=== PATIENT | male | born 1945 | race Caucasian/White ===

== ENCOUNTER 2019-05-03 09:32 | Outpatient (CLI) | payer MEDICARE, BC, SELFPAY | END 2019-05-03 09:33 | disposition home or self-care (01) | LOC: ONCMED 09:40 | PROVIDERS: Family Provider Nurse Practitioner Family; PCP Nurse Practitioner Family; Visit Provider Internal Medicine Hematology & Oncology | DX: Z45.2 Encounter for adjustment and management of vascular access device (principal) | CPT/HCPCS: 96523 ==

== ENCOUNTER 2019-06-03 11:07 | Outpatient (CLI) | payer MEDICARE, BC, SELFPAY | END 2019-06-03 11:08 | disposition home or self-care (01) | LOC: ONCMED 11:07 | PROVIDERS: Family Provider Nurse Practitioner Family; PCP Nurse Practitioner Family; Visit Provider Internal Medicine Hematology & Oncology | DX: Z45.2 Encounter for adjustment and management of vascular access device (principal) | CPT/HCPCS: 96523 ==

== ENCOUNTER 2019-07-02 10:49 | Outpatient (CLI) | payer MEDICARE, BC, SELFPAY | END 2019-07-02 10:50 | disposition home or self-care (01) | LOC: ONCMED 10:49 | PROVIDERS: Family Provider Nurse Practitioner Family; PCP Nurse Practitioner Family; Visit Provider Internal Medicine Hematology & Oncology | DX: Z45.2 Encounter for adjustment and management of vascular access device (principal) | CPT/HCPCS: 96523 ==

== ENCOUNTER 2019-08-02 09:20 | Outpatient (CLI) | payer MEDICARE, BC, SELFPAY | END 2019-08-02 09:21 | disposition home or self-care (01) | LOC: ONCMED 09:21 | PROVIDERS: Family Provider Nurse Practitioner Family; PCP Nurse Practitioner Family; Visit Provider Internal Medicine Hematology & Oncology | DX: Z45.2 Encounter for adjustment and management of vascular access device (principal) | CPT/HCPCS: 96523 ==

== ENCOUNTER 2019-08-30 09:18 | Outpatient (CLI) | payer MEDICARE, BC, SELFPAY ==
[2019-08-30 10:24] LABS: Basophils % 0.7 %; Eosinophils # 0.1 10^3/uL (0.0-0.8); Eosinophils % 1.7 %; Hematocrit 40.1 % (42.0-52.0); Hemoglobin 13.3 g/dL (11.7-16.6); Lymphocytes # 0.8 10^3/uL (0.8-4.8); Lymphocytes % 16.7 %; Mean Corpuscular HGB Conc 33.2 g/dL (30.0-36.0); Mean Corpuscular Hemoglobin 29.1 pg (28.0-34.0); Mean Corpuscular Volume 87.7 fL (80-94); Monocytes # 0.5 10^3/uL (0.2-0.9); Monocytes % 11.1 %; Neutrophils # 3.2 10^3/uL (1.8-7.7); Neutrophils % 69.6 %; Nucleated Red Blood Cells % 0 %; Platelet Count 190 10^3/cmm (130-400); Red Blood Count 4.57 10^6/uL (4.1-5.3); White Blood Count 4.6 10^3/uL (4.0-10.0)
[2019-08-30 10:51] LABS: Carcinoembryonic Antigen 3.3 ng/mL (0.0-4.7)
[2019-08-30 11:02] LABS: Alanine Aminotransferase 30 U/L (0-41); Albumin Level 4.4 g/dL (3.5-5.2); Alkaline Phosphatase 109 IU/L (40-130); Anion Gap 16.6 (5-19); Aspartate Amino Transferase 26 U/L (0-40); Blood Urea Nitrogen 15 mg/dL (8-23); Calcium 9.9 mg/dL (8.5-10.5); Carbon Dioxide 27 mmol/L (22-29); Chloride 101 mmol/L (98-107); Globulin 2.9 g/dL (1.3-4.6); Glucose 106 mg/dL (65-115); Osmolality Calculated 289 mOsm/kg (285-295); Potassium 3.6 mmol/L (3.5-5.1); Sodium 141 mmol/L (136-145); Total Bilirubin 0.5 mg/dL (0.15-1.2); Total Protein 7.3 g/dL (6.6-8.7)
== END 2019-08-30 09:19 | disposition home or self-care (01) ==
LOC: ONCMED 09:19
PROVIDERS: Family Provider Nurse Practitioner Family; PCP Nurse Practitioner Family; Visit Provider Internal Medicine Hematology & Oncology
DX: C20 Malignant neoplasm of rectum (principal); C77.8 Secondary and unspecified malignant neoplasm of lymph nodes of multiple regions; D64.9 Anemia, unspecified
CPT/HCPCS: 36591; 80053; 82378; 85025

== ENCOUNTER 2019-10-03 13:07 | Outpatient (CLI) | payer MEDICARE, BC, SELFPAY ==
[2019-10-03] MEDS: alteplase 1 mg/mL SDV 2 mL 2 MG INTRACATH (13:41)
== END 2019-10-03 13:08 | disposition home or self-care (01) ==
LOC: ONCMED 13:10
PROVIDERS: Family Provider Nurse Practitioner Family; PCP Nurse Practitioner Family; Visit Provider Internal Medicine Hematology & Oncology
DX: C20 Malignant neoplasm of rectum (principal); C77.8 Secondary and unspecified malignant neoplasm of lymph nodes of multiple regions; D64.9 Anemia, unspecified
CPT/HCPCS: 36593; 96374; J2997

== ENCOUNTER 2019-11-06 13:19 | Outpatient (CLI) | payer MEDICARE, BC, SELFPAY | END 2019-11-06 13:20 | disposition home or self-care (01) | LOC: ONCMED 13:23 | PROVIDERS: PCP Nurse Practitioner Family; Visit Provider Internal Medicine Hematology & Oncology | DX: Z45.2 Encounter for adjustment and management of vascular access device (principal); C20 Malignant neoplasm of rectum; C77.8 Secondary and unspecified malignant neoplasm of lymph nodes of multiple regions; D64.9 Anemia, unspecified | CPT/HCPCS: 96523 ==

== ENCOUNTER → 2019-11-19 16:34 | Outpatient (BNVA) | payer MEDICARE, BC, SELFPAY | PROVIDERS: PCP Nurse Practitioner Family; Visit Provider Urology | DX: R97.20 Elevated prostate specific antigen [PSA] (principal); N39.9 Disorder of urinary system, unspecified; R33.9 Retention of urine, unspecified; N13.8 Other obstructive and reflux uropathy; N40.1 Benign prostatic hyperplasia with lower urinary tract symptoms | CPT/HCPCS: 81001; 84153 ==

== ENCOUNTER 2019-12-03 13:00 | Outpatient (CLI) | payer MEDICARE, BC, SELFPAY | END 2019-12-03 13:01 | disposition home or self-care (01) | LOC: ONCMED 13:05 | PROVIDERS: PCP Nurse Practitioner Family; Visit Provider Internal Medicine Hematology & Oncology | DX: Z45.2 Encounter for adjustment and management of vascular access device (principal) | CPT/HCPCS: 96523 ==

== ENCOUNTER → 2019-12-06 09:29 | Outpatient (BNVA) | payer MEDICARE, BC, SELFPAY | PROVIDERS: PCP Nurse Practitioner Family; Visit Provider Urology | DX: R97.20 Elevated prostate specific antigen [PSA] (principal); R33.9 Retention of urine, unspecified | CPT/HCPCS: 81001 ==

== ENCOUNTER 2019-12-20 10:27 | Day surgery (SDC) | payer MEDICARE, BC, SELFPAY ==
[2019-12-19 15:13] VITALS: BMI 29.1
[2019-12-20] VITALS (7 sets, daily range): BP systolic 111–159; BP diastolic 63–78; PULSE 65–85; RESP 15–20; TEMP 36.2–37.1; O2SAT 94–98
[2019-12-20] MEDS: sodium chloride 0.9% 1,000 ML 30 ML IV (11:04)
--- NOTE | 2019-12-20 12:06 | ANES.PREANE2 ---
Pre-Anesthetic Assessment Pre-Anesthetic Assessment: Height/Weight: Height 1.65 m Weight 79.379 kg Temp Pulse Resp BP Pulse Ox 97.2 F L 65 16 159/78 97 12/20/19 10:48 12/20/19 10:48 12/20/19 10:48 12/20/19 10:48 12/20/19 10:48 Preop Diagnosis: Elevated PSA, atypical rectal anatomy Proposed Procedure: Operation Date: 12/20/19 12:00 Proposed Procedures p Transrectal Ultrasound Prostate W/Biospy [id number] R97.20(Not Applicable) - Pasquale Estrada MD Was Beta Prabhakar taken within 24 hours: Yes Last intake: Intake Last Liquid Date 12/19/19 Last Liquid Time 22:00 Last Solid Date 12/19/19 Last Solid Time 18:00 Social: Social History: No alcohol and No tobacco Exam: Pre-Anes Outpt Exam: alert, oriented x 3, clear to auscultation bilaterally and regular rate & rhythm Airway: Submandibular: WNL Cervical ROM: WNL MP: 2 Dentition: Full History/ROS: No significant history except as noted and No significant complaints Pulmonary: Pulmonary: None reported CV/HEM: CV/HEM: HTN : : None reported Hepatic: Hepatic: None reported GI: GI: None reported Metabolic: Metabolic: None reported Musc/skel: Musc/skel: OA/DJD Neuropsych: Neuropsych: Anxiety Anesthetic Plan: ASA status: 2 Anesthesia: Anesthesia Evaluation and General Risk of > 500 ml blood loss (7ml/kg in children): No Meds/Allergies Current Medications: Current Medications Generic Name Dose Route Start Last Admin Trade Name Freq PRN Reason Stop Dose Admin Sodium Chloride 1,000 mls @ 30 ml s/hr 12/20/19 10:45 12/20/19 11:04 Sodium Chloride 0.9% IV 12/21/19 10:44 30 mls/hr .Q24H FARHAT Administration PFSH Anesthesia PFSH: Medical History Anxiety Bilateral leg edema Elevated PSA Enlarged prostate History of colon cancer HTN (hypertension), benign Hyperlipidemia Incomplete bladder emptying Lower urinary tract symptoms Surgical History S/P closure of ileostomy S/P colon resection S/P ileostomy Family History Mother , 92 CAD (coronary artery disease) Father , 79 Diabetes Cancer lung Social History Smoking and tobacco status: never smoked Alcohol intake: never Marital status: Current occupational status: retired Data Anesthesia Cardiac Studies: No Data to Display
[2019-12-20] MEDS: levofloxacin-dextrose 5 % 500 MG/100 ML PREMIX 100 MG IV (13:18)
--- NOTE | 2019-12-20 13:50 | P.OP_ITS ---
Operative Report Date of procedure: December 20, 2019 Pre-op Diagnosis: Elevated PSA, atypical rectal anatomy
--- NOTE | 2019-12-20 13:50 | P.OP_ITS ---
Operative Report Date of procedure: December 20, 2019 Pre-op Diagnosis: Elevated PSA, atypical rectal anatomy Post-op diagnosis: same Procedure Done: Transrectal ultrasound and biopsy of the prostate Specimens removed/disposition: 13 prostatic cores 1 sampling left seminal vesicle Pathology: other (See above) Surgeon: Sean Anesthesia: General Urine output: Not measured Complications: None Findings: 1. Much easier to maneuver the probe into the rectum with adequate visualization under anesthesia. 2. Hypoechoic tissue characterization on the right apex and extending onto the left seminal vesicle from the left base Condition: stable Disposition: PACU Brief History: Mr. Brunson is a very pleasant 74-year-old white male recently discovered to have an elevated PSA of approximately 50 with confirmation repeat test. Prostate did not feel grossly abnormal on rectal exam but was hard to tell because of altered anatomy from previous colorectal surgery. A biopsy was recommended and after a significant contemplation he agreed to proceed. The biopsy was attempted last week in the office but due to the altered rectal anatomy it was too uncomfortable to complete the procedure. The diagnostic ultrasound was performed that showed hypoechoic changes in the right apex and left base with the latter also involving the seminal vesicles. He was scheduled for examination under anesthesia so that he could tolerate the placement of the probe required for the biopsy. Procedure: After routine preoperative evaluation examination and obtaining of informed consent he was taken to the operating suite on 12/20/2019 where general anesthesia was administered without difficulty after appropriate timeout was performed, SCDs confirmed to be functioning, preoperative antibiotics administered, beta-river protocol confirmed. He was positioned in the left lateral decubitus position with careful attention to avoiding pressure points. Digital rectal exam was performed with findings as described above. The well- lubricated ultrasound probe was inserted into the anus and easily advanced under anesthesia into the rectum allowing adequate placement of the probe for biopsy. The previously identified ultrasonic findings were confirmed as described above. Routine sampling with grid fashion of the 12 distinct areas and the left seminal vesicle. Samples appear to be adequate and the needle appeared to pass well into the prostatic tissue for sampling. Bleeding was minimal. Light pressure was held in the perineum for approximately 3 minutes following the procedure rectal exam revealed no pooling of blood. He was awakened in the operating room and returned to the recovery room in stable condition. Tolerated the procedure well without complications. PLANS: 1. Continue Levaquin at home until course is completed 2. We will communicate over the phone next week when the pathology report is available 3. Follow-up to be arranged based on that pathology report
--- NOTE | 2019-12-20 13:50 | W.PM.OPSUD ---
Surgery/Procedure H&P Update DATE OF PROCEDURE: December 20, 2019 DATE H&P PERFORMED: 12/13/19 H&P UPDATE INFORMATION: I have reviewed H&P completed within last 30 days, I have examined patient prior to procedure, No changes to prior documentation and H&P is in [facility] [place] on date indicated PREOP DIAGNOSIS: Elevated PSA, atypical rectal anatomy PLANNED PROCEDURE: Operation Date: 12/20/19 12:00 Proposed Procedures p Transrectal Ultrasound Prostate W/Biospy [id number] R97.20(Not Applicable) - Pasquale Estrada MD
--- NOTE | 2019-12-20 14:18 | PM.PACU ---
PACU note PACU note: VSS, good pain control. Post-Anesthesia Exam: awake Disposition: discharged
== END 2019-12-20 15:10 | disposition home or self-care (01) ==
PROVIDERS: PCP Nurse Practitioner Family; Visit Provider Urology
PROC: 0VB03ZX Excision of Prostate, Percutaneous Approach, Diagnostic (ICD-10-PCS; CPT 76942; principal; 2019-12-20 12:00)
DX: C61 Malignant neoplasm of prostate (principal); R97.20 Elevated prostate specific antigen [PSA]; I10 Essential (primary) hypertension; E78.5 Hyperlipidemia, unspecified; Z85.038 Personal history of other malignant neoplasm of large intestine
CPT/HCPCS: 55700; 12345; 88302; 88305; J1580; J1956; J2405; J2704; J3010; J3490; J7030; T1015-U1

== ENCOUNTER 2019-12-20 17:58 | Emergency (ER) | payer MEDICARE, BC, SELFPAY ==
[2019-12-20 18:03] VITALS: BP 143/72; PULSE 77; RESP 18; TEMP 36.3; O2SAT 94; BMI 28.2
--- NOTE | 2019-12-20 18:29 | ED_ITS ---
HPI - Male Genitourinary General: Chief complaint: Urogenital-Male Stated complaint: unable to urinate Time Seen by Provider: 12/20/19 18:18 History of Present Illness: HPI Narrative: 74-year-old male who had a prostate biopsy earlier today. He comes to the ER complaining of urinary retention, as he has not been able to urinate since his biopsy. He notes that he just was able to get a few drops out with minimal relief. He complains of belly and back tenderness with a sense of urgency. His urologist called ahead, asking for ER staff to place a Abdullahi and irrigate if needed if there were clots present. He has set the patient up to follow him up early next week. MD Complaint: other Onset (ago): hour(s) Duration: constant Location: abdomen Radiation: right flank and left flank Severity: moderate Quality: aching and stabbing Relieving factors: none Exacerbating factors: none Context: recent surgery Associated symptoms: Reports hematuria and urinary retention; Deny discharge, dysuria, fevers/chills, nausea, swelling or vomiting Review of Systems 2 Const: Denies: fever(s) or chills Eyes: Denies: blurry vision ENMT: Denies: swelling of lips/tongue, bleeding gums or epistaxis Card: Denies: chest pain or palpitations Resp: Denies: dyspnea, productive cough, non-productive cough or wheezing GI: Denies: nausea or vomiting : Reports: difficulty urinating, urinary urgency and hematuria; Denies: dysuria Musc: Reports: back pain; Denies: neck pain Skin/Breast: Denies: rash or erythema Neuro: Denies: headache(s), dizziness or vertigo PFS ED PFSH: Medical History (Updated 12/20/19 @ 19:17 by Kalpesh Bush DO) Anxiety Bilateral leg edema Elevated PSA Enlarged prostate History of colon cancer HTN (hypertension), benign Hyperlipidemia Incomplete bladder emptying Lower urinary tract symptoms Surgical History S/P closure of ileostomy S/P colon resection S/P ileostomy Family History Mother , 92 CAD (coronary artery disease) Father , 79 Diabetes Cancer lung Social History (Reviewed 12/19/19 @ 15:00 by Racheal Ramirez Smoking and tobacco status: never smoked Alcohol intake: never Marital status: Current occupational status: retired Physical Exam Const: COMMON NORMALS: patient oriented x3 GENERAL APPEARANCE: other (uncomfortable) Chest: COMMONS NORMALS: normal inspection of the chest Resp: COMMON NORMALS: normal respiratory effort, No use of accessory muscles and clear to auscultation bilaterally AUSCULTATION: clear to auscultation bilaterally Cardio: COMMON NORMALS: regular rate, regular rhythm and No murmurs present (Cardio) RATE: regular rate RHYTHM: regular rhythm GI: COMMON NORMALS: Soft to palpation INSPECTION: Yes normal to inspection PALPATION: Yes Soft to palpation and Yes Tenderness to palpation present (GI) Neuro: COMMON NORMALS: patient oriented x3 Course Vital Signs: Vital signs: Vital Signs Temperature 97.3 F L 12/20/19 18:03 Pulse Rate 66 12/20/19 20:51 Respiratory Rate 18 12/20/19 20:51 Blood Pressure 108/60 12/20/19 20:51 Pulse Oximetry 94 12/20/19 20:51 MDM - Male MDM Narrative: Medical decision making narrative: Provided no increased clots, and good drainage of urine, will be discharged. He will go home with a leg bag to follow-up with urology next week. Multiple attempts had to be made for catheter placement. Once catheter was placed, there is nearly immediate improvement in pain, there was good urine output, nearly 600 cc immediately. With improvement, he will be discharged for outpatient follow-up. Lab Data: Labs: Lab Results 12/20/19 Range/Units 20:10 Urine Color Yellow (Yellow) Urine Appearance Clear (CLEAR) Urine pH 5 (5-7) Ur Specific Gravit y 1.015 (1.005-1.030) Urine Protein Neg (Negative) Urine Glucose (UA) Norm (Normal) Urine Ketones Negative (Negative) Urine Blood 3+ H (Negative) Urine Nitrate Negative (Negative) Urine Bilirubin Neg (NEGATIVE) Urine Urobilinogen Norm (Negative) mg/dL Ur Leukocyte Amaya ase Negative (Negative) Urine RBC 5-10 H (0-2) /hpf Urine WBC 0-4 H (0-5) /hpf Ur Squamous Epith Cells 0-4 H (0-5) Amorphous Sediment Not Reportable Urine Bacteria Trace (NONE) Urine Mucus Trace Discharge Plan Discharge Patient Disposition: Home Clinical Impression: Acute retention of urine Condition: Stable Prescriptions: New levofloxacin 500 mg tablet 500 mg PO DAILY 7 Days Qty: 7 RF: 0 No Action amlodipine 10 mg tablet 10 mg PO DAILY RF: 0 hydrochlorothiazide 50 mg tablet 50 mg PO DAILY RF: 0 metoprolol succinate 50 mg tablet extended release 24 hr 50 mg PO DAILY RF: 0 ramipril 10 mg capsule 10 mg PO BID RF: 0 atorvastatin 40 mg tablet 40 mg PO BEDTIME RF: 0 diazepam 5 mg tablet 5 mg PO BEDTIME PRN (Reason: Sleep) RF: 0 levofloxacin [Levaquin] 500 mg tablet 500 mg PO DAILY Qty: 4 RF: 0 tamsulosin 0.4 mg capsule 0.4 mg PO DAILY Qty: 90 RF: 3 Discharge Orders: Discharge Order (Routine); Ordered 12/20/19 Ordered By: Kalpesh Bush Referrals: Pasquale Estrada MD [Physician] - 4-7 days Lia Garcia FNP [Primary Care Provider] - Discharge Diet: Usual diet Patient Instructions: Abdullahi Catheter Placement and Care (ED) Activity Restrictions/Additional Instructions: Follow-up with urology as directed. Return for increasing pain, decrease in urine output in your bag, fever, other concerning symptoms. Discharge Date/Time: 12/20/19 20:53 Coding Level of Care Code ED Shuttle Operator for Kirsteng Fwd Exam Detailed
[2019-12-20 18:53] VITALS: O2SAT 96
--- NOTE | 2019-12-20 19:05 | PC.NURSE ---
patient report received from YAS Santillan and care transferred to YAS García
[2019-12-20 19:12] VITALS: BP 134/72; PULSE 71; RESP 18; O2SAT 95
--- NOTE | 2019-12-20 19:14 | PC.NURSE ---
patient updated on plan of care
[2019-12-20 20:17] VITALS: BP 143/50; PULSE 68; RESP 15; O2SAT 96
--- NOTE | 2019-12-20 20:26 | PC.NURSE ---
patient given water per hcp approval
[2019-12-20 20:28] LABS: Add Urine Microscopic? YES; Bilirubin Urine Neg (NEGATIVE); Blood Urine 3+ (Negative); Glucose Urine UA Norm (Normal); Ketones Urine Negative (Negative); Leukocyte Esterase Urine Negative (Negative); Nitrate Urine Negative (Negative); Protein Urine Neg (Negative); Specific Gravity, Urine 1.015 (1.005-1.030); Urine Appearance Clear (CLEAR); Urine Color Yellow (Yellow); Urobilinogen Urine Norm (Negative); pH Urine 5 (5-7)
[2019-12-20 20:42] LABS: Add Urine Culture? No; Bacteria Urine TRACE; Mucus Urine TRACE; Squamous Epithelial Cell Urine 0-4 (0-5); WBC Urine 0-4 /hpf (0-5)
[2019-12-20 20:51] VITALS: BP 108/60; PULSE 66; RESP 18; O2SAT 94
== END 2019-12-20 20:53 | disposition home or self-care (01) ==
PROVIDERS: Emergency Provider Emergency Medicine; PCP Nurse Practitioner Family
DX: R33.9 Retention of urine, unspecified (principal); Z85.038 Personal history of other malignant neoplasm of large intestine; I10 Essential (primary) hypertension; E78.5 Hyperlipidemia, unspecified
CPT/HCPCS: 12345; 51702; 81001; 99283

== ENCOUNTER → 2019-12-27 08:46 | Outpatient (BNVA) | payer MEDICARE, BC, SELFPAY | PROVIDERS: PCP Nurse Practitioner Family; Visit Provider Urology | DX: R33.8 Other retention of urine (principal) | CPT/HCPCS: 81001 ==

== ENCOUNTER 2020-01-01 07:48 | Outpatient (CLI) | payer MEDICARE, BC, SELFPAY ==
--- NOTE | 2020-01-01 07:55 | CT_ITS ---
WS: [id number] CT ABDOMEN AND PELVIS WITH CONTRAST HISTORY: prostate cancer TECHNIQUE: Imaging performed of the abdomen and pelvis with IV contrast. Single phase imaging of the abdomen. Coronal and sagittal reformats are submitted. All CT scans at [facility] use at least one of these dose optimization techniques: automated exposure control; mA and/or kV adjustment per patient size (includes targeted exams where dose is matched to clinical indication); or iterativ e reconstruction. IV CONTRAST: Omnipaque 300; 95 mL IV. Oral contrast: Yes. DLP: 805.14 mGy.cm COMPARISON: 12/03/2018 and 08/10/2017 Lower thorax: Chronic emphysema. Heart is normal size. No hiatal hernia. Liver/biliary system: Normal size liver with granulomata. No mass or bile duct dilatation. Gallbladder: Normal. No gallstones or wall thickening. No pericholecystic fluid. Pancreas: Normal. Spleen: Normal size with granulomata. Adrenal glands: Normal. Right kidney: Mild perinephric stranding. No solid mass or obstruction. Left kidney: Mild perinephric stranding. No solid mass or obstruction. Aorta: Mild atherosclerosis with no aneurysm. Lymphadenopathy: None. Free fluid: None. GI tract: Moderate fecal retention with no obstruction. There is a row of surgical sutures at the rec jakub which is similar in appearance to the prior study. No mass. There is presacral and perirectal sof t tissue thickening and stranding which has actually progressed since 12/03/2018. Soft tissue inflammatory changes in the fat may be due to recent treatment for procedure involving th e prostate gland. Abdominal wall: Persistent defect in the RIGHT lateral abdominal wall musculature measures 2.4 cm. Th is may be a prior surgical site related to a colostomy. There is a small amount of fat herniating thr ough the defect. Similar in appearance to 12/03/2018 with no progression. Pelvis: Significant change in appearance of the urinary bladder since the prior study. Urinary bladde r is well distended. There is a small diverticulum from the dome of the urinary bladder. There is asy mmetric wall thickening greatest over the RIGHT lateral bladder measuring up to 12 mm in diameter. In flammatory changes in the fat surrounding the prostate gland and bladder are new. Prostate is very mi ldly enlarged and edematous measuring 4.5 x 3.5 cm with central calcification. No lymph nodes. Bones: Sclerotic 15 mm focus in the superior T11 vertebral body measures 15 mm. This was present on t he prior examination measuring only 6 mm. There are additional tiny sclerotic foci in the femoral hea ds which are stable. CT/CT abdomen pelvis w con* [id number] IMPRESSION: 1. New asymmetric thickening and stranding involving the urinary bladder wall measuring up to 11 mm on the RIGHT. Additional new stranding around the prostat e gland and presacral soft tissue thickening. These changes have progressed sin ce 12/03/2018 and may be related to the prostate cancer diagnosis and treatment. Cystitis should also be considered. 2. Postsurgical clips at the rectum are stable. 3. No evidence for metastatic disease to the liver and no adenopathy. 4. Increasing sclerotic focus in T11. Focus has increased from 6 mm to 15 mm. Suspicious for osteoblastic metastatic site related to prostate cancer. This os teoblastic focus is also positive on recent bone scan.
--- NOTE | 2020-01-01 08:00 | NM_ITS ---
WS: [id number] NUCLEAR MEDICINE WHOLE BODY BONE SCAN HISTORY: Prostate Cancer COMPARISON: None available. TECHNIQUE: The patient was injected with 27.5 mCi of Technetium 99m HDP and serial whole-body scintig wendy have been performed with anterior and posterior images. Moderate area of increased uptake involving the RIGHT lateral T11 vertebral body. On the recent CT th ere is an increasing sclerotic focus in the T11 vertebral body. There is additional moderate uptake a t the LEFT lumbosacral junction. At this level there is facet joint arthritis but no focal osteoblast ic lesion. There is an additional area of moderate uptake involving the RIGHT C7-T1 facet region. Mil d degenerative changes at the AC joints and glenohumeral joints and at the knees and ankles. Addition al arthritis at the RIGHT wrist. Normal soft tissue uptake in both kidneys demonstrate normal activity and uptake. NM/NM bone scan whole body* [id number] IMPRESSION: 1. Moderate increased uptake in the RIGHT lateral T11 vertebral body. This cor responds to the increasing sclerotic focus as visualized by CT. Suspicious for metastatic site. 2. Indeterminate but less suspicious uptake in the LEFT L5-S1 and C7-T1 facet regions.
[2020-01-01 08:42] LABS: Blood Urea Nitrogen 14 mg/dL (8-23)
[2020-01-01] MEDS: iohexol 300 mg/mL 100 mL Btl IV (08:51)
== END 2020-01-01 07:49 | disposition home or self-care (01) ==
LOC: RAD 07:48
PROVIDERS: PCP Nurse Practitioner Family; Visit Provider Urology
DX: C61 Malignant neoplasm of prostate (principal)
CPT/HCPCS: 36415; 74177; 78306; 82565; 84520; A9561

== ENCOUNTER 2020-01-28 13:39 | Outpatient (CLI) | payer MEDICARE, BC, SELFPAY ==
--- NOTE | 2020-01-28 15:13 | ONC FU_ITS ---
Dr. Curry follow up note Patient: John Brunson Unit #: [id number]: 1945 Dicatated By: Axel Curry M.D.Date of Visit:Jan 28, 2020 Onc Med Follow-up/Prog Note History of Present Illness: Mr Brunson is a 74 year-old man with adenocarcinoma of the rectum, stage ISIS (Tx, Nx, M1a), MSI stable. He had presented with bleeding per rectum for many months. Colonoscopy on 01/10/2017 showed at malignant appearing mass at 6 cm from the anal verge, It was involving three fourth of the circumference. The rest of colon exam showed scattered diverticula in sigmoid colon, but it otherwise appeared normal. Multiple biopsies were obtained with pathology showing moderately differentiated adenocarcinoma, with focal areas which were poorly differentiated. The tumor was found to have intact mismatch repair proteins. CT abdomen/pelvis on 01/10/2017 showed posterior rectal wall thickening measuring 3.8 cm x 2.1 cm, consistent with primary tumor. Additional soft tissue lobulation from the posterior lateral rectum appeared consistent with metastatic deposits or tumor extension from the rectum. An aortocaval lymph node measuring 7 mm in short axis diameter had increased in size since 2008. Subcentimeter periaortic lymph nodes had also increased in size. There was left common iliac chain adenopathy, the largest measures 1.6 cm in diameter. Deeper within the pelvis near bifurcation of left iliac artery there was an additional lymph node measuring 1.2 cm. Numerous small lymph nodes were noted within the perirectal fat and there was some very mild perirectal fat stranding. He was referred to Dr. Lino Bedoya in [place]. He had further evaluation with MRI of the pelvis on 01/18/2017. It showed irregular near-complete circumferential wall thickening roughly centered within the mid rectum consistent with his primary rectal tumor. There was extramural tumor extension abutting the right mesorectal fascia along the right lateral posterior rectal wall. There was bilateral mesorectal lymphadenopathy and left common iliac chain lymphadenopathy. Staging PET/CT on 02/11/2017 showed FDG avid rectal tumor, SUV 15.2, with multiple FDG avid subcentimeter lymph nodes in the surrounding ischial rectal fat. There was also suspected metastatic adenopathy along the pelvic sidewalls and in the retroperitoneum. He initially underwent neoadjuvant chemotherapy with modified FOLFOX, cycle 1 beginning 02/21/2017. He tolerated the first cycle of modified FOLFOX with acceptable toxicity, and he was able to proceed with cycle 2 on 03/06/2017. He had severe cramping in his calves following the second cycle, and he had back spasms which lasted for 3-4 days. He had cold sensitivity which lasted in the range of 11-12 days. With cycle 3, on 03/20/2017, he was given a dose reduction in both the 5-FU infusion and the oxaliplatin. He continued treatment and on 05/02/2017 he began his 6th cycle of chemotherapy. On 05/30/2017 he began radiation concurrently with Xeloda for chemosensitization. He completed radiation on 07/10/2017 to a total dose of 5072 cGy. On 09/12/2017 he underwent robotic extended low anterior resection with placement of loop ileostomy. Pathology showed grade 2 adenocarcinoma with invasion through the muscularis propria into perirectal tissue. It measured 2.5 x 2 x 1 cm. The tumor regression score was 2. There was involvement in 4 of 12 regional lymph nodes. Final staging was ypT3, ypN2a. His other medical illnesses include hypertension and hyperlipidemia. He is a nonsmoker. Mr Brunson continued postoperative chemotherapy on 10/17/2017 with postoperative modified FOLFOX. He has tolerated it well overall. And completed his adjuvant chemotherapy with modified FOLFOX ???6 on 12/26/2017. Status post colostomy closure Done in March 2018 f/u CT scan of abdomen pelvis done on 12/03/2018 showed postsurgical changes at the rectum with posttreatment perirectal soft tissue thickening. No evidence of recurrent mass, obstruction or adenopathy. No metastatic disease to the liver or adrenal glands chest x-ray done on 12/03/2018. Showed no acute pulmonary infiltrate. Chronic elevation right hemidiaphragm CEA was 4.2, As per patient he underwent colonoscopy evaluation May 2019, and Dr. mcconnell , informed him about no abnormality seen and follow-up colonoscopy would be considered in 3 years. 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 and CT scan of abdomen ordered by urology shows 2 areas of suspicious activity 1 in the spine at T11 and other 1 in the cervical area and CT scan of her abdomen pelvis also confirmed T11 involvement but no pelvic lymphadenopathy, patient was started on bicalutamide on January 22, 2020 Came for follow-up, denies any specific complaints, no fever chills, no nausea or vomiting, no diarrhea constipation, no hematuria, melena or hematochezia patient was recently diagnosed with prostate cancer as his PSA was more than 50 and also had abnormal SHILPI for that he underwent TRUS P/biopsy on December 20, 2019 which confirmed high-volume James 4+4 and 3+4 prostate cancer. Patient was started on bicalutamide last week and tolerating well. Patient said he has seen Dr. Mendoza recently and underwent colonoscopy and it was unremarkable and next one is due in 3 years now. Medications: AmLODIPine Besylate 1 Tablet (of 10 mg) Oral daily, Atorvastatin Calcium 1 Tablet (of 40 mg) Oral daily, Casodex 1 Tablet (of 50 mg) Oral daily, Daily Multiple Vitamins 2 Tablet Oral daily, DiazePAM 1 (5 mg) Tablet Oral at bedtime, HydroCHLOROthiazide 1 Tablet (of 50 mg) Oral daily, Imodium A-D 2 (2 mg) Capsule Oral four times a day PRN, LORazepam 0.5 - 1 (1 mg) Tablet Oral t.i.d. PRN, Metoprolol Succinate ER 1 Tablet (of 50 mg) Tablet SR 24 HR Oral daily, Ramipril 1 Tablet (of 10 mg) Capsule Oral b.i.d., Senokot S Tablet Oral daily PRN, Tamsulosin HCl 1 Capsule (of 0.4 mg) Oral daily Allergies: No Known Allergies. Review of Systems: Constitutional - Appetite is good and weight is stable. No fever, chills, hot flashes, or night sweats. Energy level is fair, ENMT - No sinus congestion/drainage. No mouth sores. No sore throat, some difficulty swallowing, Hematologic/Lymphatic - No abnormal bruising or bleeding, Respiratory - Occasional shortness of breath. No cough. No pleuritic pain or hemoptysis, Cardiovascular - No angina pain. No palpitations, Gastrointestinal - No nausea or vomiting. No heartburn or acid reflux. No constipation, Genitourinary (M) - No dysuria or hematuria. No urinary frequency. No urgency or incontinence, Musculoskeletal - No joint or bone pain, Neurologic - No headache or dizziness. No numbness/paresthesias or other focal neurologic symptoms, Psychiatric - No anxiety or depression. No insomnia. Vital Signs: Performed on Jan 28, 2020 13:53 Height - 65.00 in Weight - 167.0 lbs (LOW) BSA - 1.83 sq.m BMI - 27.79 Temperature - 98.0 F (LOW) Pulse - 71 /min Respiration - 18 /min BP - 133/58 mm(hg) O2 Sat - 97 % Pain - 0 Performance Status: 0 - Fully active, able to carry on all predisease activities without restrictions. (ECOG) Physical Examination: ENMT - No mouth sores, no thrush, no jaundice, Respiratory - Lungs are clear, Cardiovascular - Regular rate and rhythm of heart, Abdomen - Soft, bowel sounds present, Extremities - No visible edema. Lab/Imaging: Test performed on August 30, 2019 09:30 Sodium 141 mmol/L Potassium 3.6 mmol/L Chloride 101 mmol/L CO2 27 mmol/L Anion Gap 16.6 BUN 15 mg/dL Creatinine 0.9 mg/dL Cr Clearance (Est) 88.0600 mL/min Glucose 106 mg/dL Calcium 9.9 mg/dL Protein, Total 7.3 g/dL Albumin 4.4 g/dL Globulin 2.9 g/dL Bilirubin, Total 0.5 mg/dL ALT (SGPT) 30 U/L AST (SGOT) 26 U/L Alkaline Phosphatase 109 IU/L WBC 4.6 10 3/uL RBC 4.57 10 6/uL HGB 13.3 g/dL HCT 40.1 % MCV 87.7 fL MCH 29.1 pg MCHC 33.2 g/dL RDW 14.0 % Platelet Count 190 10 3/cmm MPV 10.0 fL Neutrophils 3.2 10 3/uL Lymphocytes 0.8 10 3/uL Monocytes 0.5 10 3/uL Eosinophils 0.1 10 3/uL Basophils 0.0 10 3/uL Neutrophil % 69.6 % Lymphocyte % 16.7 % Monocyte % 11.1 % Eosinophil % 1.7 % Basophils % 0.7 % CEA 3.3 ng/mL Impression: Metastatic prostate cancer with T11 involvement per bone scan and CT scan of abdomen pelvis done on January 01, 2020. 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 Patient with adenocarcinoma of the rectum, stage ISIS, with metastatic involvement in nonregional lymph nodes. His tumor was found to be MSI stable. 2. He has been undergoing chemotherapy with modified FOLFOX, cycle 1 beginning on 02/21/2017. His other medical illnesses include: 3. Hypertension. 4. Hyperlipidemia. Neoadjuvant chemotherapy with FOLFOX ???6 from 02/21/2017 to 05/02/2017 and On 05/30/2017 he began radiation concurrently with Xeloda for chemosensitization. He completed chemoradiation on 07/10/2017 to a total dose of 5072 cGy. On 09/12/2017 he underwent robotic extended low anterior resection with placement of loop ileostomy. Pathology showed grade 2 adenocarcinoma with invasion through the muscularis propria into perirectal tissue. It measured 2.5 x 2 x 1 cm. The tumor regression score was 2. There was involvement in 4 of 12 regional lymph nodes. Final staging was ypT3, ypN2a. On 10/17/2017 began his first cycle of postoperative adjuvant chemotherapy with modified FOLFOX. He had cold sensitivity lasting 3-4 days. He has otherwise tolerated it well.Completed 6 cycles of adjuvant FOLFOX (total 12 doses, 6 as neoadjuvant and another 6 doses as an adjuvant therapy) on 12/26/2017 Follow-up CT PET scan done on 02/17/2018 showed no evidence of recurrent or residual malignancy. Status post colostomy closure Was done in March 2018 Plan: Discussed with patient regarding his newly diagnosed prostate cancer clinically it appears patient bone mets especially T11 vertebra involvement which was seen on bone scan as well as CT scan of abdomen pelvis moreover his PSA was more than 50 and prostate biopsy confirmed high-volume [place] score 4+4 and 3+4, and he was already started on bicalutamide by urology, tolerating well, at this point we will consider starting him on Zoladex 10.8 mg every 3 months and then follow-up with testosterone and PSA in a month after Zoladex injection and goal is to get his testosterone level less than 20 for optimal response and then will consider follow-up: CT PET scan after 2 injections of Zoladex if that shows no evidence of distant mets, and if PSA normalized then will consider referral to radiation oncology for consideration of brachii therapy to the prostate as patient has history of rectal cancer for which she was treated with radiation therapy in May 2017. And we will also consider treating him with Xgeva on monthly basis to prevent skeletal related complications. All the side effects possible benefits associated with Zoladex including but not limited to generalized weakness and fatigue, gynecomastia, decreased libido, erectile dysfunction, bone demineralization, were mentioned and also discussed about possible side effects associated with Xgeva including but not limited to mandible necrosis, hypocalcemia, allergic reaction, bone pain, further teaching will be done by chemotherapy nurse. And will obtain approval from his insurance. As far as rectal cancer is concerned, patient has been following colorectal surgeon in [place] as per patient recently underwent colonoscopy and he was told there is no evidence of recurrence of disease and next follow-up colonoscopy will be done in 3 years. Patient return to clinic 1 month after Zoladex injection with CBC CMP, PSA and testosterone in the meantime we will continue with monthly port maintenance Signed By: Axel Curry M.D. <<Signature on File>>
== END 2020-01-28 13:40 | disposition home or self-care (01) ==
LOC: ONCMED 13:40
PROVIDERS: PCP Nurse Practitioner Family; Visit Provider Internal Medicine Hematology & Oncology
DX: C20 Malignant neoplasm of rectum (principal); C77.8 Secondary and unspecified malignant neoplasm of lymph nodes of multiple regions; D64.9 Anemia, unspecified; I10 Essential (primary) hypertension; E78.5 Hyperlipidemia, unspecified; Z45.2 Encounter for adjustment and management of vascular access device
CPT/HCPCS: 96523; 99214

== ENCOUNTER 2020-02-04 06:38 | Outpatient (CLI) | payer MEDICARE, BC, SELFPAY ==
[2020-02-04] MEDS: denosumab 120 mg SDV SUBCUT (13:18)
[2020-02-04] MEDS: goserelin acetate 10.8 mg Implant IM (13:20)
[2020-02-04] MEDS: lidocaine 1% INJ 20 mL INJECTION (14:51)
== END 2020-02-04 06:39 | disposition home or self-care (01) ==
LOC: ONCMED 06:41
PROVIDERS: PCP Nurse Practitioner Family; Visit Provider Internal Medicine Hematology & Oncology
DX: Z51.11 Encounter for antineoplastic chemotherapy (principal); C77.8 Secondary and unspecified malignant neoplasm of lymph nodes of multiple regions; C20 Malignant neoplasm of rectum; D64.9 Anemia, unspecified; Z79.818 Long term (current) use of other agents affecting estrogen receptors and estrogen levels
CPT/HCPCS: 96372; 96402; J0897; J9202

== ENCOUNTER 2020-03-02 05:44 | Outpatient (CLI) | payer MEDICARE, BC, SELFPAY ==
[2020-03-02 09:57] LABS: Basophils % 0.7 %; Eosinophils # 0.1 10^3/uL (0.0-0.8); Eosinophils % 1.1 %; Hematocrit 40.1 % (42.0-52.0); Hemoglobin 13.5 g/dL (11.7-16.6); Lymphocytes # 0.6 10^3/uL (0.8-4.8); Mean Corpuscular HGB Conc 33.7 g/dL (30.0-36.0); Mean Corpuscular Volume 86.2 fL (80-94); Mean Platelet Volume 9.6 fL (7.4-10.4); Monocytes # 0.4 10^3/uL (0.2-0.9); Monocytes % 8.7 %; Neutrophils # 3.38 10^3/uL (1.8-7.7); Neutrophils % 75.3 %; Nucleated Red Blood Cells % 0 %; Platelet Count 180 10^3/cmm (130-400); Red Blood Count 4.65 10^6/uL (4.1-5.3); Red Cell Distribution Width 14.2 % (12.1-15.1); White Blood Count 4.5 10^3/uL (4.0-10.0)
[2020-03-02 10:28] LABS: Carcinoembryonic Antigen 2.1 ng/mL (0.0-4.7); Prostate Specific Antigen 0.947 ng/mL (0-4); Testosterone Total 2.5 ng/dL (193-740)
[2020-03-02 10:39] LABS: Alanine Aminotransferase 28 U/L (0-41); Albumin Level 4.6 g/dL (3.5-5.2); Alkaline Phosphatase 90 IU/L (40-130); Anion Gap 14.4 (5-19); Aspartate Amino Transferase 25 U/L (0-40); Blood Urea Nitrogen 12 mg/dL (8-23); Calcium 9.5 mg/dL (8.5-10.5); Carbon Dioxide 29 mmol/L (22-29); Chloride 97 mmol/L (98-107); Globulin 2.4 g/dL (1.3-4.6); Glucose 125 mg/dL (65-115); Osmolality Calculated 285 mOsm/kg (285-295); Potassium 3.4 mmol/L (3.5-5.1); Sodium 137 mmol/L (136-145); Total Bilirubin 0.7 mg/dL (0.15-1.2)
[2020-03-02] MEDS: denosumab 120 mg SDV SUBCUT (11:33)
--- NOTE | 2020-03-02 16:01 | ONC FU_ITS ---
Dr. Curry follow up note Patient: John Brunson Unit #: [id number]: [id number] Dicatated By: Axel Curry M.D.Date of Visit:Mar 02, 2020 Onc Med Follow-up/Prog Note History of Present Illness: Mr Brunson is a 74 year-old man with adenocarcinoma of the rectum, stage ISIS (Tx, Nx, M1a), MSI stable. He had presented with bleeding per rectum for many months. Colonoscopy on 01/10/2017 showed at malignant appearing mass at 6 cm from the anal verge, It was involving three fourth of the circumference. The rest of colon exam showed scattered diverticula in sigmoid colon, but it otherwise appeared normal. Multiple biopsies were obtained with pathology showing moderately differentiated adenocarcinoma, with focal areas which were poorly differentiated. The tumor was found to have intact mismatch repair proteins. CT abdomen/pelvis on 01/10/2017 showed posterior rectal wall thickening measuring 3.8 cm x 2.1 cm, consistent with primary tumor. Additional soft tissue lobulation from the posterior lateral rectum appeared consistent with metastatic deposits or tumor extension from the rectum. An aortocaval lymph node measuring 7 mm in short axis diameter had increased in size since 2008. Subcentimeter periaortic lymph nodes had also increased in size. There was left common iliac chain adenopathy, the largest measures 1.6 cm in diameter. Deeper within the pelvis near bifurcation of left iliac artery there was an additional lymph node measuring 1.2 cm. Numerous small lymph nodes were noted within the perirectal fat and there was some very mild perirectal fat stranding. He was referred to Dr. Lino Bedoya in [place]. He had further evaluation with MRI of the pelvis on 01/18/2017. It showed irregular near-complete circumferential wall thickening roughly centered within the mid rectum consistent with his primary rectal tumor. There was extramural tumor extension abutting the right mesorectal fascia along the right lateral posterior rectal wall. There was bilateral mesorectal lymphadenopathy and left common iliac chain lymphadenopathy. Staging PET/CT on 02/11/2017 showed FDG avid rectal tumor, SUV 15.2, with multiple FDG avid subcentimeter lymph nodes in the surrounding ischial rectal fat. There was also suspected metastatic adenopathy along the pelvic sidewalls and in the retroperitoneum. He initially underwent neoadjuvant chemotherapy with modified FOLFOX, cycle 1 beginning 02/21/2017. He tolerated the first cycle of modified FOLFOX with acceptable toxicity, and he was able to proceed with cycle 2 on 03/06/2017. He had severe cramping in his calves following the second cycle, and he had back spasms which lasted for 3-4 days. He had cold sensitivity which lasted in the range of 11-12 days. With cycle 3, on 03/20/2017, he was given a dose reduction in both the 5-FU infusion and the oxaliplatin. He continued treatment and on 05/02/2017 he began his 6th cycle of chemotherapy. On 05/30/2017 he began radiation concurrently with Xeloda for chemosensitization. He completed radiation on 07/10/2017 to a total dose of 5072 cGy. On 09/12/2017 he underwent robotic extended low anterior resection with placement of loop ileostomy. Pathology showed grade 2 adenocarcinoma with invasion through the muscularis propria into perirectal tissue. It measured 2.5 x 2 x 1 cm. The tumor regression score was 2. There was involvement in 4 of 12 regional lymph nodes. Final staging was ypT3, ypN2a. His other medical illnesses include hypertension and hyperlipidemia. He is a nonsmoker. Mr Brunson continued postoperative chemotherapy on 10/17/2017 with postoperative modified FOLFOX. He has tolerated it well overall. And completed his adjuvant chemotherapy with modified FOLFOX ???6 on 12/26/2017. Status post colostomy closure Done in March 2018 f/u CT scan of abdomen pelvis done on 12/03/2018 showed postsurgical changes at the rectum with posttreatment perirectal soft tissue thickening. No evidence of recurrent mass, obstruction or adenopathy. No metastatic disease to the liver or adrenal glands chest x-ray done on 12/03/2018. Showed no acute pulmonary infiltrate. Chronic elevation right hemidiaphragm CEA was 4.2, As per patient he underwent colonoscopy evaluation May 2019, and Dr. mcconnell , informed him about no abnormality seen and follow-up colonoscopy would be considered in 3 years. 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 Mendoza recently and underwent colonoscopy and it was unremarkable and next one is due in 3 years now. Came for follow-up, denies any specific complaints, no fever chills, no nausea or vomiting, no diarrhea constipation, occasionally hot flashes otherwise tolerated Zoladex and bicalutamide along with monthly Xgeva well. Medications: AmLODIPine Besylate 1 Tablet (of 10 mg) Oral daily, Atorvastatin Calcium 1 Tablet (of 40 mg) Oral daily, Casodex 1 Tablet (of 50 mg) Oral daily, Daily Multiple Vitamins 2 Tablet Oral daily, DiazePAM 1 (5 mg) Tablet Oral at bedtime, HydroCHLOROthiazide 1 Tablet (of 50 mg) Oral daily, Imodium A-D 2 (2 mg) Capsule Oral four times a day PRN, LORazepam 0.5 - 1 (1 mg) Tablet Oral t.i.d. PRN, Metoprolol Succinate ER 1 Tablet (of 50 mg) Tablet SR 24 HR Oral daily, Ramipril 1 Tablet (of 10 mg) Capsule Oral b.i.d., Senokot S Tablet Oral daily PRN, Tamsulosin HCl 1 Capsule (of 0.4 mg) Oral daily Allergies: No Known Allergies. Review of Systems: Review of Systems is not available for this patient. Vital Signs: Performed on Mar 02, 2020 11:05 Height - 65.00 in Weight - 170.2 lbs (HIGH) BSA - 1.85 sq.m BMI - 28.32 Temperature - 97.5 F (LOW) Pulse - 62 /min Respiration - 16 /min BP - 142/71 mm(hg) (HIGH) O2 Sat - 96 % Pain - 0 Performance Status: 0 - Fully active, able to carry on all predisease activities without restrictions. (ECOG) Physical Examination: ENMT - No mouth sores, no thrush, no jaundice, Respiratory - Lungs are clear to auscultation, Cardiovascular - Regular rate and rhythm of heart, Abdomen - Soft, bowel sounds present, Extremities - No visible edema or rash. Lab/Imaging: Test performed on Mar 02, 2020 09:44 Sodium 137 mmol/L Testosterone, Total 2.5 ng/dL Potassium 3.4 mmol/L Chloride 97 mmol/L CO2 29 mmol/L Anion Gap 14.4 BUN 12 mg/dL Creatinine 0.8 mg/dL Cr Clearance (Est) 91.14 mL/min Glucose 125 mg/dL Osmolality - Calculated 285 mOsm/kg Calcium 9.5 mg/dL Protein, Total 7.0 g/dL Albumin 4.6 g/dL Globulin 2.4 g/dL Bilirubin, Total 0.7 mg/dL ALT (SGPT) 28 U/L AST (SGOT) 25 U/L Alkaline Phosphatase 90 IU/L WBC 4.5 10 3/uL RBC 4.65 10 6/uL HGB 13.5 g/dL HCT 40.1 % MCV 86.2 fL MCH 29.0 pg MCHC 33.7 g/dL RDW 14.2 % Platelet Count 180 10 3/cmm MPV 9.6 fL Neutrophils 3.38 10 3/uL Lymphocytes 0.6 10 3/uL Monocytes 0.4 10 3/uL Eosinophils 0.1 10 3/uL Basophils 0.0 10 3/uL Neutrophil % 75.3 % Lymphocyte % 14.0 % Monocyte % 8.7 % Eosinophil % 1.1 % Basophils % 0.7 % NRBC % 0 % CEA 2.1 ng/mL PSA 0.947 ng/mL Impression: Metastatic prostate cancer with T11 involvement per bone scan and CT scan of abdomen pelvis done on January 01, 2020. 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 Patient with adenocarcinoma of the rectum, stage ISIS, with metastatic involvement in nonregional lymph nodes. , Started on Zoladex 10.8 mg every 3 months on February 04, 2020 along with monthly Xgeva And daily vitamin D/calcium supplements His tumor was found to be MSI stable. 2. He has been undergoing chemotherapy with modified FOLFOX, cycle 1 beginning on 02/21/2017. His other medical illnesses include: 3. Hypertension. 4. Hyperlipidemia. Neoadjuvant chemotherapy with FOLFOX ???6 from 02/21/2017 to 05/02/2017 and On 05/30/2017 he began radiation concurrently with Xeloda for chemosensitization. He completed chemoradiation on 07/10/2017 to a total dose of 5072 cGy. On 09/12/2017 he underwent robotic extended low anterior resection with placement of loop ileostomy. Pathology showed grade 2 adenocarcinoma with invasion through the muscularis propria into perirectal tissue. It measured 2.5 x 2 x 1 cm. The tumor regression score was 2. There was involvement in 4 of 12 regional lymph nodes. Final staging was ypT3, ypN2a. On 10/17/2017 began his first cycle of postoperative adjuvant chemotherapy with modified FOLFOX. He had cold sensitivity lasting 3-4 days. He has otherwise tolerated it well.Completed 6 cycles of adjuvant FOLFOX (total 12 doses, 6 as neoadjuvant and another 6 doses as an adjuvant therapy) on 12/26/2017 Follow-up CT PET scan done on 02/17/2018 showed no evidence of recurrent or residual malignancy. Status post colostomy closure Was done in March 2018 Plan: Discussed with patient regarding his labs white blood count 4.5 hemoglobin 13.5 hematocrit 41.1 platelets 180,000 CMP within normal limit except potassium 3.4 and the PSA is 0.947 compared to more than 50 at the time of diagnosis and CEA 2.1 Clinically, patient is doing well, tolerating ADT with Zoladex/Casodex well but with expected side effect e.g. occasionally hot flashes and his follow-up labs shows excellent response his PSA being less than 1, compared to more than 50 at the time of diagnosis., Will continue with daily Casodex along with 3 monthly Zoladex and in the meantime, Will proceed with monthly dose of Xgeva today and then patient return to clinic in 1 month with CMP PSA and to continue with monthly Xgeva. Mild hypokalemia, will give him KCl 20 mEq p.o. daily for 3 days then on as-needed basis. Signed By: Axel Curry M.D. <<Signature on File>>
== END 2020-03-02 05:45 | disposition home or self-care (01) ==
LOC: ONCMED 05:50
PROVIDERS: PCP Nurse Practitioner Family; Visit Provider Internal Medicine Hematology & Oncology
DX: Z51.11 Encounter for antineoplastic chemotherapy (principal); C61 Malignant neoplasm of prostate; C20 Malignant neoplasm of rectum; C77.8 Secondary and unspecified malignant neoplasm of lymph nodes of multiple regions; D64.9 Anemia, unspecified; I10 Essential (primary) hypertension; E78.5 Hyperlipidemia, unspecified; E87.6 Hypokalemia; Z79.818 Long term (current) use of other agents affecting estrogen receptors and estrogen levels; Z79.899 Other long term (current) drug therapy
CPT/HCPCS: 36591; 80053; 82378; 84153; 84403; 85025; 96372; 99214; J0897

== ENCOUNTER 2020-04-06 10:52 | Outpatient (CLI) | payer MEDICARE, BC, SELFPAY ==
[2020-04-06] MEDS: alteplase 1 mg/mL SDV 2 mL 2 MG IV (11:20)
[2020-04-06 13:34] LABS: Prostate Specific Antigen 0.098 ng/mL (0-4)
[2020-04-06 13:48] LABS: Alanine Aminotransferase 25 U/L (0-41); Albumin Level 4.6 g/dL (3.5-5.2); Alkaline Phosphatase 87 IU/L (40-130); Anion Gap 15.3 (5-19); Aspartate Amino Transferase 23 U/L (0-40); Blood Urea Nitrogen 16 mg/dL (8-23); Calcium 10.3 mg/dL (8.5-10.5); Carbon Dioxide 28 mmol/L (22-29); Chloride 103 mmol/L (98-107); Globulin 2.7 g/dL (1.3-4.6); Glucose 110 mg/dL (65-115); Osmolality Calculated 298 mOsm/kg (285-295); Potassium 3.3 mmol/L (3.5-5.1); Sodium 143 mmol/L (136-145); Total Bilirubin 0.4 mg/dL (0.15-1.2); Total Protein 7.3 g/dL (6.6-8.7)
--- NOTE | 2020-04-06 14:38 | ONC FU_ITS ---
Dr. Curry follow up note Patient: John Brunson Unit #: [id number]: [id number] Dicatated By: Axel Curry M.D.Date of Visit:Apr 06, 2020 Onc Med Follow-up/Prog Note History of Present Illness: Mr Brunson is a 74 year-old man with adenocarcinoma of the rectum, stage ISIS (Tx, Nx, M1a), MSI stable. He had presented with bleeding per rectum for many months. Colonoscopy on 01/10/2017 showed at malignant appearing mass at 6 cm from the anal verge, It was involving three fourth of the circumference. The rest of colon exam showed scattered diverticula in sigmoid colon, but it otherwise appeared normal. Multiple biopsies were obtained with pathology showing moderately differentiated adenocarcinoma, with focal areas which were poorly differentiated. The tumor was found to have intact mismatch repair proteins. CT abdomen/pelvis on 01/10/2017 showed posterior rectal wall thickening measuring 3.8 cm x 2.1 cm, consistent with primary tumor. Additional soft tissue lobulation from the posterior lateral rectum appeared consistent with metastatic deposits or tumor extension from the rectum. An aortocaval lymph node measuring 7 mm in short axis diameter had increased in size since 2008. Subcentimeter periaortic lymph nodes had also increased in size. There was left common iliac chain adenopathy, the largest measures 1.6 cm in diameter. Deeper within the pelvis near bifurcation of left iliac artery there was an additional lymph node measuring 1.2 cm. Numerous small lymph nodes were noted within the perirectal fat and there was some very mild perirectal fat stranding. He was referred to Dr. Lino Bedoya in [place]. He had further evaluation with MRI of the pelvis on 01/18/2017. It showed irregular near-complete circumferential wall thickening roughly centered within the mid rectum consistent with his primary rectal tumor. There was extramural tumor extension abutting the right mesorectal fascia along the right lateral posterior rectal wall. There was bilateral mesorectal lymphadenopathy and left common iliac chain lymphadenopathy. Staging PET/CT on 02/11/2017 showed FDG avid rectal tumor, SUV 15.2, with multiple FDG avid subcentimeter lymph nodes in the surrounding ischial rectal fat. There was also suspected metastatic adenopathy along the pelvic sidewalls and in the retroperitoneum. He initially underwent neoadjuvant chemotherapy with modified FOLFOX, cycle 1 beginning 02/21/2017. He tolerated the first cycle of modified FOLFOX with acceptable toxicity, and he was able to proceed with cycle 2 on 03/06/2017. He had severe cramping in his calves following the second cycle, and he had back spasms which lasted for 3-4 days. He had cold sensitivity which lasted in the range of 11-12 days. With cycle 3, on 03/20/2017, he was given a dose reduction in both the 5-FU infusion and the oxaliplatin. He continued treatment and on 05/02/2017 he began his 6th cycle of chemotherapy. On 05/30/2017 he began radiation concurrently with Xeloda for chemosensitization. He completed radiation on 07/10/2017 to a total dose of 5072 cGy. On 09/12/2017 he underwent robotic extended low anterior resection with placement of loop ileostomy. Pathology showed grade 2 adenocarcinoma with invasion through the muscularis propria into perirectal tissue. It measured 2.5 x 2 x 1 cm. The tumor regression score was 2. There was involvement in 4 of 12 regional lymph nodes. Final staging was ypT3, ypN2a. His other medical illnesses include hypertension and hyperlipidemia. He is a nonsmoker. Mr Brunson continued postoperative chemotherapy on 10/17/2017 with postoperative modified FOLFOX. He has tolerated it well overall. And completed his adjuvant chemotherapy with modified FOLFOX ???6 on 12/26/2017. Status post colostomy closure Done in March 2018 f/u CT scan of abdomen pelvis done on 12/03/2018 showed postsurgical changes at the rectum with posttreatment perirectal soft tissue thickening. No evidence of recurrent mass, obstruction or adenopathy. No metastatic disease to the liver or adrenal glands chest x-ray done on 12/03/2018. Showed no acute pulmonary infiltrate. Chronic elevation right hemidiaphragm CEA was 4.2, As per patient he underwent colonoscopy evaluation May 2019, and Dr. mcconnell , informed him about no abnormality seen and follow-up colonoscopy would be considered in 3 years. Underwent TRUS P/biopsy for abnormal SHILPI and elevated PSA on December 20, 2019 and final pathology report shows large volume Castine score 4+4 and 3+4 SHOCHET and bone scan and CT scan of abdomen ordered by urology shows 2 areas of suspicious activity 1 in the spine at T11 and other 1 in the cervical area and CT scan of her abdomen pelvis also confirmed T11 involvement but no pelvic lymphadenopathy, patient was started on bicalutamide on January 22, 2020 And Zoladex every 3 month was added on February 04, 2020 along with monthly Xgeva Patient said he has seen Dr. Mendoza recently and underwent colonoscopy and it was unremarkable and next one is due in 3 years now. Came for follow-up, denies any specific complaint except excessive urination at night, sometimes diaper cannot hold of it. And also complaining of hot flashes and generalized weakness and fatigue since he is on hormonal therapy for his prostate cancer,, no hematuria otherwise no fever chills, no nausea or vomiting, no diarrhea constipation. Tolerating Zoladex/Casodex/Xgeva well Medications: AmLODIPine Besylate 1 Tablet (of 10 mg) Oral daily, Atorvastatin Calcium 1 Tablet (of 40 mg) Oral daily, Casodex 1 Tablet (of 50 mg) Oral daily, Daily Multiple Vitamins 2 Tablet Oral daily, DiazePAM 1 (5 mg) Tablet Oral at bedtime, HydroCHLOROthiazide 1 Tablet (of 50 mg) Oral daily, Imodium A-D 2 (2 mg) Capsule Oral four times a day PRN, LORazepam 0.5 - 1 (1 mg) Tablet Oral t.i.d. PRN, Metoprolol Succinate ER 1 Tablet (of 50 mg) Tablet SR 24 HR Oral daily, Ramipril 1 Tablet (of 10 mg) Capsule Oral b.i.d., Senokot S Tablet Oral daily PRN, Tamsulosin HCl 1 Capsule (of 0.4 mg) Oral daily Allergies: No Known Allergies. Review of Systems: Constitutional - Appetite is good and weight is stable. No fever, chills, hot flashes, or night sweats. Energy level is fair, ENMT - No sinus congestion/drainage. No mouth sores. No sore throat, some difficulty swallowing, Hematologic/Lymphatic - No abnormal bruising or bleeding, Respiratory - Occasional shortness of breath. No cough. No pleuritic pain or hemoptysis, Cardiovascular - No angina pain. No palpitations, Gastrointestinal - No nausea or vomiting. No heartburn or acid reflux. No constipation, Genitourinary (M) - No dysuria or hematuria. No urinary frequency. Positive for urgency and incontinence, Musculoskeletal - No joint or bone pain, Neurologic - No headache or dizziness. No numbness/paresthesias or other focal neurologic symptoms, Psychiatric - No anxiety or depression. No insomnia. Vital Signs: Performed on Apr 06, 2020 12:46 Height - 65.00 in Weight - 173.6 lbs (HIGH) BSA - 1.86 sq.m BMI - 28.89 Temperature - 97.8 F (LOW) Pulse - 68 /min Respiration - 20 /min BP - 140/64 mm(hg) O2 Sat - 97 % Pain - 0 Performance Status: 1 - No physically strenuous activity, but ambulatory and able to carry out light or sedentary work (e.g. office work, light house work). (ECOG) Physical Examination: ENMT - No mouth sores, no thrush, no jaundice, Respiratory - Lungs are clear to auscultation, Cardiovascular - Regular rate and rhythm of heart, Abdomen - Soft, bowel sounds present, Extremities - No visible edema. Lab/Imaging: Test performed on Mar 02, 2020 09:44 Sodium 137 mmol/L Testosterone, Total 2.5 ng/dL Potassium 3.4 mmol/L Chloride 97 mmol/L CO2 29 mmol/L Anion Gap 14.4 BUN 12 mg/dL Creatinine 0.8 mg/dL Cr Clearance (Est) 91.14 mL/min Glucose 125 mg/dL Osmolality - Calculated 285 mOsm/kg Calcium 9.5 mg/dL Protein, Total 7.0 g/dL Albumin 4.6 g/dL Globulin 2.4 g/dL Bilirubin, Total 0.7 mg/dL ALT (SGPT) 28 U/L AST (SGOT) 25 U/L Alkaline Phosphatase 90 IU/L WBC 4.5 10 3/uL RBC 4.65 10 6/uL HGB 13.5 g/dL HCT 40.1 % MCV 86.2 fL MCH 29.0 pg MCHC 33.7 g/dL RDW 14.2 % Platelet Count 180 10 3/cmm MPV 9.6 fL Neutrophils 3.38 10 3/uL Lymphocytes 0.6 10 3/uL Monocytes 0.4 10 3/uL Eosinophils 0.1 10 3/uL Basophils 0.0 10 3/uL Neutrophil % 75.3 % Lymphocyte % 14.0 % Monocyte % 8.7 % Eosinophil % 1.1 % Basophils % 0.7 % NRBC % 0 % CEA 2.1 ng/mL PSA 0.947 ng/mL Impression: Metastatic prostate cancer with T11 involvement per bone scan and CT scan of abdomen pelvis done on January 01, 2020. Patient underwent TRUS P/biopsy on December 20, 2019 which confirmed high-volume Castine score 4+4 and 3+4 SHOCHET and his PSA was more than 50 Patient was started on bicalutamide by urology on January 22, 2020.1. Patient with adenocarcinoma of the rectum, stage ISIS, with metastatic involvement in nonregional lymph nodes. , Started on Zoladex 10.8 mg every 3 months on February 04, 2020 along with monthly Xgeva And daily vitamin D/calcium supplements His tumor was found to be MSI stable. 2. He has been undergoing chemotherapy with modified FOLFOX, cycle 1 beginning on 02/21/2017. His other medical illnesses include: 3. Hypertension. 4. Hyperlipidemia. Neoadjuvant chemotherapy with FOLFOX ???6 from 02/21/2017 to 05/02/2017 and On 05/30/2017 he began radiation concurrently with Xeloda for chemosensitization. He completed chemoradiation on 07/10/2017 to a total dose of 5072 cGy. On 09/12/2017 he underwent robotic extended low anterior resection with placement of loop ileostomy. Pathology showed grade 2 adenocarcinoma with invasion through the muscularis propria into perirectal tissue. It measured 2.5 x 2 x 1 cm. The tumor regression score was 2. There was involvement in 4 of 12 regional lymph nodes. Final staging was ypT3, ypN2a. On 10/17/2017 began his first cycle of postoperative adjuvant chemotherapy with modified FOLFOX. He had cold sensitivity lasting 3-4 days. He has otherwise tolerated it well.Completed 6 cycles of adjuvant FOLFOX (total 12 doses, 6 as neoadjuvant and another 6 doses as an adjuvant therapy) on 12/26/2017 Follow-up CT PET scan done on 02/17/2018 showed no evidence of recurrent or residual malignancy. Status post colostomy closure Was done in March 2018 Plan: Discussed with patient regarding his labs PSA is 0.098 compared to 0.94 on March 02, 2020 and more than 50 at the time of diagnosis CMP within normal limit except potassium 3.3 Clinically, patient is doing well with no new signs symptom suggestive of disease progression, tolerating 3 monthly Zoladex and daily Casodex well but with expected side effect e.g. hot flashes and generalized weakness and fatigue. And he is also on Xgeva for bone mets seen on bone scan and CT scan of abdomen involving T11 and cervical spine. His follow-up labs shows significant drop in his PSA from 0.94- to 0.098. At this point we will consider repeating bone scan and if it shows no abnormality, will refer him to radiation oncology in [place] for evaluation brachytherapy as patient is status post radiation to pelvic for rectal CA. On the other hand if bone scan shows persistent abnormality, then will consider MRI scan of involved area. As for the hot flashes and generalized weakness is concerned, probably due to ADT, more so due to bicalutamide, if his follow-up PSA and bone scan in a month shows further improvement then will consider discontinuing bicalutamide while continue 3 monthly Zoladex to minimize side effect related to ADT As far as mild hypokalemia is concerned, patient was on potassium supplement on as-needed basis, no he was advised to take it on regular basis and will follow potassium level. As far as excessive urination at night is concerned, could be due to overflow, patient will see Dr. Estrada for evaluation. Return to clinic in 1 month with CMP and PSA Signed By: Axel Curry M.D. <<Signature on File>>
[2020-04-06] MEDS: denosumab 120 mg SDV SUBCUT (14:40)
== END 2020-04-06 10:53 | disposition home or self-care (01) ==
LOC: ONCMED 10:56
PROVIDERS: PCP Nurse Practitioner Family; Visit Provider Internal Medicine Hematology & Oncology
DX: Z51.11 Encounter for antineoplastic chemotherapy (principal); C61 Malignant neoplasm of prostate; C20 Malignant neoplasm of rectum; C77.8 Secondary and unspecified malignant neoplasm of lymph nodes of multiple regions; D64.9 Anemia, unspecified; R97.20 Elevated prostate specific antigen [PSA]; I10 Essential (primary) hypertension; E78.5 Hyperlipidemia, unspecified; Z79.818 Long term (current) use of other agents affecting estrogen receptors and estrogen levels
CPT/HCPCS: 36593; 80053; 84153; 96372; 96374; 99214; J0897; J2997

== ENCOUNTER → 2020-04-14 08:28 | Outpatient (BNVA) | payer MEDICARE, BC, SELFPAY | PROVIDERS: PCP Nurse Practitioner Family; Visit Provider Urology | DX: C61 Malignant neoplasm of prostate (principal); R97.20 Elevated prostate specific antigen [PSA]; R39.9 Unspecified symptoms and signs involving the genitourinary system | CPT/HCPCS: 81003 ==

== ENCOUNTER 2020-05-05 08:33 | Outpatient (CLI) | payer MEDICARE, BC, SELFPAY ==
--- NOTE | 2020-05-05 08:43 | NM_ITS ---
WS: [id number] NUCLEAR MEDICINE WHOLE BODY BONE SCAN HISTORY: RESTAGING EVALUATION/HX OF CANCER/BONE PAIN/PROSTATE CA COMPARISON: 01/01/2020 TECHNIQUE: The patient was injected with 25.0 mCi of Technetium 99m HDP and serial whole-body scintig wendy have been performed with anterior and posterior images. Mild uptake over the facet joint on the RIGHT at the C7-T1 level. Not as intense as on the prior stud y with no progression. Stable intermediate uptake involving the LEFT L5 facet joint. No progression o f bone disease. No abnormality noted at T11. No rib lesions. Degenerative changes are noted at the kn ee joints and ankle joints bilaterally. Normal soft tissue uptake. Normal activity noted in the kidne ys. NM/NM bone scan whole body* [id number] IMPRESSION: 1. No evidence for progressive metastatic lesion to the bony skeleton since 01/01/2020. There are a few areas of intermediate uptake as described above which m ay be degenerative. 2. Normal soft tissue uptake.
== END 2020-05-05 08:34 | disposition home or self-care (01) ==
LOC: NM 08:37
PROVIDERS: PCP Nurse Practitioner Family; Visit Provider Internal Medicine Hematology & Oncology
DX: C61 Malignant neoplasm of prostate (principal)
CPT/HCPCS: 78306; A9561

== ENCOUNTER 2020-05-11 10:54 | Outpatient (CLI) | payer MEDICARE, BC, SELFPAY ==
[2020-05-11 11:27] LABS: Basophils % 0.5 %; Eosinophils # 0.1 10^3/uL (0.0-0.8); Eosinophils % 2.6 %; Hematocrit 39.8 % (42.0-52.0); Hemoglobin 13.6 g/dL (11.7-16.6); Lymphocytes # 0.8 10^3/uL (0.8-4.8); Lymphocytes % 20.8 %; Mean Corpuscular HGB Conc 34.2 g/dL (30.0-36.0); Mean Corpuscular Hemoglobin 29.8 pg (28.0-34.0); Mean Corpuscular Volume 87.3 fL (80-94); Mean Platelet Volume 9.7 fL (7.4-10.4); Monocytes # 0.4 10^3/uL (0.2-0.9); Monocytes % 9.4 %; Neutrophils # 2.56 10^3/uL (1.8-7.7); Neutrophils % 66.4 %; Nucleated Red Blood Cells % 0 %; Platelet Count 178 10^3/cmm (130-400); Red Blood Count 4.56 10^6/uL (4.1-5.3); Red Cell Distribution Width 13.3 % (12.1-15.1); White Blood Count 3.9 10^3/uL (4.0-10.0)
[2020-05-11 11:48] LABS: Alanine Aminotransferase 25 U/L (0-41); Albumin Level 4.1 g/dL (3.5-5.2); Alkaline Phosphatase 88 IU/L (40-130); Anion Gap 11.6 (5-19); Aspartate Amino Transferase 23 U/L (0-40); Blood Urea Nitrogen 17 mg/dL (8-23); Calcium 9.2 mg/dL (8.5-10.5); Carbon Dioxide 28 mmol/L (22-29); Chloride 102 mmol/L (98-107); Globulin 2.4 g/dL (1.3-4.6); Glucose 109 mg/dL (65-115); Osmolality Calculated 288 mOsm/kg (285-295); Potassium 3.6 mmol/L (3.5-5.1); Sodium 138 mmol/L (136-145); Total Bilirubin 0.4 mg/dL (0.15-1.2); Total Protein 6.5 g/dL (6.6-8.7)
[2020-05-11] MEDS: lidocaine 1% INJ 20 mL INJECTION (13:45)
[2020-05-11] MEDS: denosumab 120 mg SDV SUBCUT (14:00)
[2020-05-11] MEDS: goserelin acetate 10.8 mg Implant IM (14:10)
--- NOTE | 2020-05-11 15:59 | ONC FU_ITS ---
Dr. Curry follow up note Patient: John Brunson Unit #: [id number]: [id number] Dicatated By: Axel Curry M.D.Date of Visit:May 11, 2020 Onc Med Follow-up/Prog Note History of Present Illness: Mr Brunson is a 74 year-old man with adenocarcinoma of the rectum, stage ISIS (Tx, Nx, M1a), MSI stable. He had presented with bleeding per rectum for many months. Colonoscopy on 01/10/2017 showed at malignant appearing mass at 6 cm from the anal verge, It was involving three fourth of the circumference. The rest of colon exam showed scattered diverticula in sigmoid colon, but it otherwise appeared normal. Multiple biopsies were obtained with pathology showing moderately differentiated adenocarcinoma, with focal areas which were poorly differentiated. The tumor was found to have intact mismatch repair proteins. CT abdomen/pelvis on 01/10/2017 showed posterior rectal wall thickening measuring 3.8 cm x 2.1 cm, consistent with primary tumor. Additional soft tissue lobulation from the posterior lateral rectum appeared consistent with metastatic deposits or tumor extension from the rectum. An aortocaval lymph node measuring 7 mm in short axis diameter had increased in size since 2008. Subcentimeter periaortic lymph nodes had also increased in size. There was left common iliac chain adenopathy, the largest measures 1.6 cm in diameter. Deeper within the pelvis near bifurcation of left iliac artery there was an additional lymph node measuring 1.2 cm. Numerous small lymph nodes were noted within the perirectal fat and there was some very mild perirectal fat stranding. He was referred to Dr. Lino Bedoya in [place]. He had further evaluation with MRI of the pelvis on 01/18/2017. It showed irregular near-complete circumferential wall thickening roughly centered within the mid rectum consistent with his primary rectal tumor. There was extramural tumor extension abutting the right mesorectal fascia along the right lateral posterior rectal wall. There was bilateral mesorectal lymphadenopathy and left common iliac chain lymphadenopathy. Staging PET/CT on 02/11/2017 showed FDG avid rectal tumor, SUV 15.2, with multiple FDG avid subcentimeter lymph nodes in the surrounding ischial rectal fat. There was also suspected metastatic adenopathy along the pelvic sidewalls and in the retroperitoneum. He initially underwent neoadjuvant chemotherapy with modified FOLFOX, cycle 1 beginning 02/21/2017. He tolerated the first cycle of modified FOLFOX with acceptable toxicity, and he was able to proceed with cycle 2 on 03/06/2017. He had severe cramping in his calves following the second cycle, and he had back spasms which lasted for 3-4 days. He had cold sensitivity which lasted in the range of 11-12 days. With cycle 3, on 03/20/2017, he was given a dose reduction in both the 5-FU infusion and the oxaliplatin. He continued treatment and on 05/02/2017 he began his 6th cycle of chemotherapy. On 05/30/2017 he began radiation concurrently with Xeloda for chemosensitization. He completed radiation on 07/10/2017 to a total dose of 5072 cGy. On 09/12/2017 he underwent robotic extended low anterior resection with placement of loop ileostomy. Pathology showed grade 2 adenocarcinoma with invasion through the muscularis propria into perirectal tissue. It measured 2.5 x 2 x 1 cm. The tumor regression score was 2. There was involvement in 4 of 12 regional lymph nodes. Final staging was ypT3, ypN2a. His other medical illnesses include hypertension and hyperlipidemia. He is a nonsmoker. Mr Brunson continued postoperative chemotherapy on 10/17/2017 with postoperative modified FOLFOX. He has tolerated it well overall. And completed his adjuvant chemotherapy with modified FOLFOX ???6 on 12/26/2017. Status post colostomy closure Done in March 2018 f/u CT scan of abdomen pelvis done on 12/03/2018 showed postsurgical changes at the rectum with posttreatment perirectal soft tissue thickening. No evidence of recurrent mass, obstruction or adenopathy. No metastatic disease to the liver or adrenal glands chest x-ray done on 12/03/2018. Showed no acute pulmonary infiltrate. Chronic elevation right hemidiaphragm CEA was 4.2, As per patient he underwent colonoscopy evaluation May 2019, and Dr. mcconnell , informed him about no abnormality seen and follow-up colonoscopy would be considered in 3 years. Underwent TRUS P/biopsy for abnormal SHILPI and elevated PSA on December 20, 2019 and final pathology report shows large volume Bly score 4+4 and 3+4 [employer] and bone scan and CT scan of abdomen ordered by urology shows 2 areas of suspicious activity 1 in the spine at T11 and other 1 in the cervical area and CT scan of her abdomen pelvis also confirmed T11 involvement but no pelvic lymphadenopathy, patient was started on bicalutamide on January 22, 2020 And Zoladex every 3 month was added on February 04, 2020 along with monthly Xgeva Bone scan done on May 05, 2020 showed no evidence of progressive metastatic lesion to the bone since January 01, 2020 no abnormality noted at T11, bicalutamide was discontinued on May 11, 2019 because of side effect Patient said he has seen Dr. Mendoza recently and underwent colonoscopy and it was unremarkable and next one is due in 3 years now. Came for follow-up, denies any specific complaints, no fever chills, no nausea or vomiting, no diarrhea or constipation, no new bony pains, occasionally hot flashes otherwise tolerating Zoladex/Xgeva well Medications: AmLODIPine Besylate 1 Tablet (of 10 mg) Oral daily, Atorvastatin Calcium 1 Tablet (of 40 mg) Oral daily, Casodex 1 Tablet (of 50 mg) Oral daily, Daily Multiple Vitamins 2 Tablet Oral daily, DiazePAM 1 (5 mg) Tablet Oral at bedtime, HydroCHLOROthiazide 1 Tablet (of 50 mg) Oral daily, Imodium A-D 2 (2 mg) Capsule Oral four times a day PRN, LORazepam 0.5 - 1 (1 mg) Tablet Oral t.i.d. PRN, Metoprolol Succinate ER 1 Tablet (of 50 mg) Tablet SR 24 HR Oral daily, Ramipril 1 Tablet (of 10 mg) Capsule Oral b.i.d., Senokot S Tablet Oral daily PRN, Tamsulosin HCl 1 Capsule (of 0.4 mg) Oral daily Allergies: No Known Allergies. Review of Systems: Review of Systems is not available for this patient. Vital Signs: Performed on May 11, 2020 12:44 Height - 65.00 in Weight - 178.3 lbs (HIGH) BSA - 1.88 sq.m BMI - 29.67 Temperature - 97.7 F (LOW) Pulse - 74 /min Respiration - 16 /min BP - 142/62 mm(hg) (HIGH) O2 Sat - 98 % Pain - 0 Performance Status: 1 - No physically strenuous activity, but ambulatory and able to carry out light or sedentary work (e.g. office work, light house work). (ECOG) Physical Examination: ENMT - No mouth sores, no thrush, no jaundice, Respiratory - Lungs are clear to auscultation, Cardiovascular - Regular rate and rhythm of heart, Abdomen - Soft, bowel sounds present, Extremities - No visible edema. Lab/Imaging: Test performed on Apr 06, 2020 11:50 Sodium 143 mmol/L Potassium 3.3 mmol/L Chloride 103 mmol/L CO2 28 mmol/L Anion Gap 15.3 BUN 16 mg/dL Creatinine 0.6 mg/dL Cr Clearance (Est) 123.9500 mL/min Glucose 110 mg/dL Osmolality - Calculated 298 mOsm/kg Calcium 10.3 mg/dL Protein, Total 7.3 g/dL Albumin 4.6 g/dL Globulin 2.7 g/dL Bilirubin, Total 0.4 mg/dL ALT (SGPT) 25 U/L AST (SGOT) 23 U/L Alkaline Phosphatase 87 IU/L PSA 0.098 ng/mL Test performed on Mar 02, 2020 09:44 Testosterone, Total 2.5 ng/dL WBC 4.5 10 3/uL RBC 4.65 10 6/uL HGB 13.5 g/dL HCT 40.1 % MCV 86.2 fL MCH 29.0 pg MCHC 33.7 g/dL RDW 14.2 % Platelet Count 180 10 3/cmm MPV 9.6 fL Neutrophils 3.38 10 3/uL Lymphocytes 0.6 10 3/uL Monocytes 0.4 10 3/uL Eosinophils 0.1 10 3/uL Basophils 0.0 10 3/uL Neutrophil % 75.3 % Lymphocyte % 14.0 % Monocyte % 8.7 % Eosinophil % 1.1 % Basophils % 0.7 % NRBC % 0 % CEA 2.1 ng/mL Impression: Metastatic prostate cancer with T11 involvement per bone scan and CT scan of abdomen pelvis done on January 01, 2020. Patient underwent TRUS P/biopsy on December 20, 2019 which confirmed high-volume James score 4+4 and 3+4 [employer] and his PSA was more than 50 Patient was started on bicalutamide by urology on January 22, 2020.1. Patient with adenocarcinoma of the rectum, stage ISIS, with metastatic involvement in nonregional lymph nodes. , Started on Zoladex 10.8 mg every 3 months on February 04, 2020 along with monthly Xgeva And daily vitamin D/calcium supplements His tumor was found to be MSI stable. 2. He has been undergoing chemotherapy with modified FOLFOX, cycle 1 beginning on 02/21/2017. His other medical illnesses include: 3. Hypertension. 4. Hyperlipidemia. Neoadjuvant chemotherapy with FOLFOX ???6 from 02/21/2017 to 05/02/2017 and On 05/30/2017 he began radiation concurrently with Xeloda for chemosensitization. He completed chemoradiation on 07/10/2017 to a total dose of 5072 cGy. On 09/12/2017 he underwent robotic extended low anterior resection with placement of loop ileostomy. Pathology showed grade 2 adenocarcinoma with invasion through the muscularis propria into perirectal tissue. It measured 2.5 x 2 x 1 cm. The tumor regression score was 2. There was involvement in 4 of 12 regional lymph nodes. Final staging was ypT3, ypN2a. On 10/17/2017 began his first cycle of postoperative adjuvant chemotherapy with modified FOLFOX. He had cold sensitivity lasting 3-4 days. He has otherwise tolerated it well.Completed 6 cycles of adjuvant FOLFOX (total 12 doses, 6 as neoadjuvant and another 6 doses as an adjuvant therapy) on 12/26/2017 Follow-up CT PET scan done on 02/17/2018 showed no evidence of recurrent or residual malignancy. Status post colostomy closure Was done in March 2018 Plan: -Discussed with patient regarding his labs white blood count 3.9 hemoglobin 13.6 hematocrit 39.8 platelets 178,000 CMP within normal limits PSA 0.3 Clinically, patient is doing well with no new signs symptoms history of disease progression, his follow-up PSA still subzero and is follow-up bone scan done on May 05, 2020 shows no evidence of progressive metastatic lesion to the brain bone since January 01, 2020. There are few areas of intermediate uptake in the facet joint on the right at C7-T1 and left L5 facet joint. No abnormality noted at T11 At this point, will consider MRI scan of C-spine and thoracic spine with special attention to T11, if it shows no evidence of bone damage or lytic lesion, then will discuss with radiation oncology in [place] regarding brachytherapy as patient has history of rectal cancer for which he received combined chemoradiation. On the other hand if MRI scan shows bone lesion due to history of metastatic disease, then will continue with ADT and follow-up with PSA.In the meantime we will Discontinue bicalutamide and proceed with his 3 monthly dose of Zoladex and then monthly dose of Xgeva today, based on good response seen on bone scan, will consider changing his Xgeva to every 3-month along with Zoladex. Signed By: Axel Curry M.D. <<Signature on File>>
== END 2020-05-11 10:55 | disposition home or self-care (01) ==
LOC: ONCMED 10:58
PROVIDERS: PCP Nurse Practitioner Family; Visit Provider Internal Medicine Hematology & Oncology
DX: C61 Malignant neoplasm of prostate (principal); C79.51 Secondary malignant neoplasm of bone; C77.9 Secondary and unspecified malignant neoplasm of lymph node, unspecified; Z85.048 Personal history of other malignant neoplasm of rectum, rectosigmoid junction, and anus; Z79.818 Long term (current) use of other agents affecting estrogen receptors and estrogen levels; I10 Essential (primary) hypertension; E78.5 Hyperlipidemia, unspecified; Z79.899 Other long term (current) drug therapy
CPT/HCPCS: 36591; 80053; 85025; 96372; 96402; 99214; G0103; J0897; J9202

== ENCOUNTER 2020-06-02 07:45 | Outpatient (CLI) | payer MEDICARE, BC, SELFPAY ==
--- NOTE | 2020-06-02 08:24 | MR_ITS ---
WS: [id number] MRI THORACIC SPINE WITH CONTRAST TECHNIQUE: Sagittal T1, T2 and STIR imaging. Axial T2 imaging. Post gadolinium imaging was obtained. CLINICAL INFORMATION: HX OF CANCER, BACK PAIN COMPARISON: Bone scan on 09/17/2020 and 01/01/2020 FINDINGS: Moderate thoracic kyphosis. No acute compression. No high-grade central canal stenosis. Sclerotic 12 mm low signal focus without enhancement T11 vertebral body abutting the superior endplate. This demon strates low signal on all sequences without enhancement and is likely benign or previously treated. N o activity on the recent bone scan. No evidence of bony metastatic disease. No enhancing lesions. Cord signal is normal. No evidence of enhancing epidural disease. Moderate facet arthropathy lower th oracic spine. Tiny syrinx within the mid thoracic cord. Cord signal is otherwise normal. Adrenal glan ds are normal. Normal caliber thoracic aorta. Cholelithiasis. MR/MR thoracic spine wo/w [id number] IMPRESSION: 1. Nonenhancing low signal sclerotic focus in the T11 vertebral body likely be nign or previously treated. No activity on the recent bone scan and no enhancem ent today. This can be followed up with CT or MRI in 3-6 months to confirm stab ility. 2. No evidence of bony metastatic or epidural disease. 3. Cholelithiasis. 4. Tiny incidental syrinx in the mid thoracic cord. Cord signal is otherwise n ormal.
--- NOTE | 2020-06-02 08:24 | MR_ITS ---
WS: [id number] MRI CERVICAL SPINE NONCONTRAST AND CONTRAST TECHNIQUE: Sagittal T1, T2 and STIR imaging. Axial T2, gradient, and fiesta imaging. CLINICAL INFORMATION: HX OF CANCER, BACK PAIN COMPARISON: Bone scan January 01, 2020 FINDINGS: Exaggeration of the normal cervical lordosis. Cord signal is normal. No high-grade central canal sten osis. No abnormal gadolinium enhancement. No evidence of enhancing metastatic bony disease or epidura l disease. C7 and T1 appear normal. C2-C3: Normal. C3-C4: Mild disc osteophytic ridging. Mild left and no significant right foraminal narrowing. Advance d right facet arthropathy. C4-C5: No significant disc bulging. Spinal canal is patent. Mild left and no significant right forami nal narrowing. Advanced right facet arthropathy. C5-C6: Disc osteophytic ridging. Mild left and no significant right foraminal narrowing. Moderate rig ht facet arthropathy. Spinal canal is patent. C6-C7: Mild facet arthropathy. Mild left and no significant right foraminal narrowing. Spinal canal i s patent. C7-T1: C7 and T1 appear normal Visualized brain stem structures: Normal. Prevertebral soft tissues: Normal. MR/MR cervical spine wo/w [id number] IMPRESSION: 1. No evidence of enhancing bony metastatic disease or epidural disease. 2. Cord signal is normal. 3. No high-grade central canal stenosis. 4. Mild bony foraminal narrowing described above. 5. Asymmetric advanced facet arthropathy right C3-C4 and right C4-C5.
== END 2020-06-02 07:46 | disposition home or self-care (01) ==
LOC: RADWPI 07:47
PROVIDERS: PCP Nurse Practitioner Family; Visit Provider Internal Medicine Hematology & Oncology
DX: Z85.9 Personal history of malignant neoplasm, unspecified (principal); M54.9 Dorsalgia, unspecified; K80.20 Calculus of gallbladder without cholecystitis without obstruction; M47.812 Spondylosis without myelopathy or radiculopathy, cervical region
CPT/HCPCS: 72156; 72157; A9577

== ENCOUNTER 2020-06-12 05:49 | Outpatient (CLI) | payer MEDICARE, BC, SELFPAY | END 2020-06-12 05:50 | disposition home or self-care (01) | LOC: ONCMED 05:52 | PROVIDERS: PCP Nurse Practitioner Family; Visit Provider Internal Medicine Hematology & Oncology | DX: Z45.2 Encounter for adjustment and management of vascular access device (principal) | CPT/HCPCS: 96523 ==

== ENCOUNTER → 2020-06-24 14:17 | Outpatient (BNVA) | payer MEDICARE, BC, SELFPAY | PROVIDERS: PCP Nurse Practitioner Family; Visit Provider Urology | DX: R33.9 Retention of urine, unspecified (principal); C61 Malignant neoplasm of prostate; R39.9 Unspecified symptoms and signs involving the genitourinary system | CPT/HCPCS: 81003 ==

== ENCOUNTER 2020-07-10 08:49 | Outpatient (CLI) | payer MEDICARE, BC, SELFPAY | END 2020-07-10 08:50 | disposition home or self-care (01) | PROVIDERS: PCP Nurse Practitioner Family; Visit Provider Internal Medicine Hematology & Oncology | DX: Z45.2 Encounter for adjustment and management of vascular access device (principal) | CPT/HCPCS: 96523 ==

== ENCOUNTER 2020-08-18 10:58 | Outpatient (CLI) | payer MEDICARE, BC, SELFPAY ==
[2020-08-18 12:15] LABS: Prostate Specific Antigen 0.576 ng/mL (0-4)
[2020-08-18] MEDS: lidocaine 1% INJ 20 mL INJECTION (13:45)
[2020-08-18] MEDS: denosumab 120 mg SDV SUBCUT (13:55)
[2020-08-18] MEDS: goserelin acetate 10.8 mg Implant IM (13:58)
--- NOTE | 2020-08-23 20:59 | ONC FU_ITS ---
Dr. Curry follow up note Patient: John Brunson Unit #: [id number]: 1945 Dicatated By: Axel Curry M.D.Date of Visit:Aug 18, 2020 Onc Med Follow-up/Prog Note History of Present Illness: Mr Brunson is a 75 year-old man with adenocarcinoma of the rectum, stage ISIS (Tx, Nx, M1a), MSI stable. He had presented with bleeding per rectum for many months. Colonoscopy on 01/10/2017 showed at malignant appearing mass at 6 cm from the anal verge, It was involving three fourth of the circumference. The rest of colon exam showed scattered diverticula in sigmoid colon, but it otherwise appeared normal. Multiple biopsies were obtained with pathology showing moderately differentiated adenocarcinoma, with focal areas which were poorly differentiated. The tumor was found to have intact mismatch repair proteins. CT abdomen/pelvis on 01/10/2017 showed posterior rectal wall thickening measuring 3.8 cm x 2.1 cm, consistent with primary tumor. Additional soft tissue lobulation from the posterior lateral rectum appeared consistent with metastatic deposits or tumor extension from the rectum. An aortocaval lymph node measuring 7 mm in short axis diameter had increased in size since 2008. Subcentimeter periaortic lymph nodes had also increased in size. There was left common iliac chain adenopathy, the largest measures 1.6 cm in diameter. Deeper within the pelvis near bifurcation of left iliac artery there was an additional lymph node measuring 1.2 cm. Numerous small lymph nodes were noted within the perirectal fat and there was some very mild perirectal fat stranding. He was referred to Dr. Lino Bedoya in [place]. He had further evaluation with MRI of the pelvis on 01/18/2017. It showed irregular near-complete circumferential wall thickening roughly centered within the mid rectum consistent with his primary rectal tumor. There was extramural tumor extension abutting the right mesorectal fascia along the right lateral posterior rectal wall. There was bilateral mesorectal lymphadenopathy and left common iliac chain lymphadenopathy. Staging PET/CT on 02/11/2017 showed FDG avid rectal tumor, SUV 15.2, with multiple FDG avid subcentimeter lymph nodes in the surrounding ischial rectal fat. There was also suspected metastatic adenopathy along the pelvic sidewalls and in the retroperitoneum. He initially underwent neoadjuvant chemotherapy with modified FOLFOX, cycle 1 beginning 02/21/2017. He tolerated the first cycle of modified FOLFOX with acceptable toxicity, and he was able to proceed with cycle 2 on 03/06/2017. He had severe cramping in his calves following the second cycle, and he had back spasms which lasted for 3-4 days. He had cold sensitivity which lasted in the range of 11-12 days. With cycle 3, on 03/20/2017, he was given a dose reduction in both the 5-FU infusion and the oxaliplatin. He continued treatment and on 05/02/2017 he began his 6th cycle of chemotherapy. On 05/30/2017 he began radiation concurrently with Xeloda for chemosensitization. He completed radiation on 07/10/2017 to a total dose of 5072 cGy. On 09/12/2017 he underwent robotic extended low anterior resection with placement of loop ileostomy. Pathology showed grade 2 adenocarcinoma with invasion through the muscularis propria into perirectal tissue. It measured 2.5 x 2 x 1 cm. The tumor regression score was 2. There was involvement in 4 of 12 regional lymph nodes. Final staging was ypT3, ypN2a. His other medical illnesses include hypertension and hyperlipidemia. He is a nonsmoker. Mr Brunson continued postoperative chemotherapy on 10/17/2017 with postoperative modified FOLFOX. He has tolerated it well overall. And completed his adjuvant chemotherapy with modified FOLFOX ???6 on 12/26/2017. Status post colostomy closure Done in March 2018 f/u CT scan of abdomen pelvis done on 12/03/2018 showed postsurgical changes at the rectum with posttreatment perirectal soft tissue thickening. No evidence of recurrent mass, obstruction or adenopathy. No metastatic disease to the liver or adrenal glands chest x-ray done on 12/03/2018. Showed no acute pulmonary infiltrate. Chronic elevation right hemidiaphragm CEA was 4.2, As per patient he underwent colonoscopy evaluation May 2019, and Dr. mcconnell , informed him about no abnormality seen and follow-up colonoscopy would be considered in 3 years. 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 Mendoza recently and underwent colonoscopy and it was unremarkable and next one is due in 3 years now. Patient underwent sigmoidoscopy on August 13, 2020, as per patient he was told by Dr. Mendoza, there is no abnormality noticed. MRI scan of C-spine done on June 02, 2020 showed no evidence of enhancing bony metastatic disease or epidural disease, asymmetric advanced facet arthropathy right C3-4 and C4-5, MRI scan of thoracic spine shows nonenhancing low signal sclerotic focus in the T11 vertebral body likely benign used to treat. Lower extremity on recent bone scan or no enhancement seen. No evidence of bone mets, Bone scan done on May 05, 2020 shows no evidence of metastatic disease Came for follow-up, denies any specific complaints, no fever chills, no nausea or vomiting, no diarrhea or constipation, no melena or hematochezia, no new bony pains, tolerating 3 monthly Zoladex and Xgeva well Medications: AmLODIPine Besylate 1 Tablet (of 10 mg) Oral daily, Atorvastatin Calcium 1 Tablet (of 40 mg) Oral daily, Casodex 1 Tablet (of 50 mg) Oral daily, Daily Multiple Vitamins 2 Tablet Oral daily, DiazePAM 1 (5 mg) Tablet Oral at bedtime, HydroCHLOROthiazide 1 Tablet (of 50 mg) Oral daily, Imodium A-D 2 (2 mg) Capsule Oral four times a day PRN, LORazepam 0.5 - 1 (1 mg) Tablet Oral t.i.d. PRN, Metoprolol Succinate ER 1 Tablet (of 50 mg) Tablet SR 24 HR Oral daily, Ramipril 1 Tablet (of 10 mg) Capsule Oral b.i.d., Senokot S Tablet Oral daily PRN, Tamsulosin HCl 1 Capsule (of 0.4 mg) Oral daily Allergies: No Known Allergies. Review of Systems: Review of Systems is not available for this patient. Vital Signs: Performed on Aug 18, 2020 12:39 Height - 65.00 in Weight - 182.8 lbs (HIGH) BSA - 1.90 sq.m BMI - 30.42 (HIGH) Temperature - 97.3 F (LOW) Pulse - 93 /min Respiration - 18 /min BP - 143/66 mm(hg) (HIGH) O2 Sat - 97 % Pain - 0 Fatigue - 0 Performance Status: 0 - Fully active, able to carry on all predisease activities without restrictions. (ECOG) Physical Examination: ENMT - No mouth sores, no thrush, no jaundice, Respiratory - Lungs are clear to auscultation, Cardiovascular - Regular rate and rhythm of heart, Abdomen - Soft, bowel sounds present, Extremities - No visible edema. Lab/Imaging: Test performed on May 11, 2020 11:10 Sodium 138 mmol/L Potassium 3.6 mmol/L Chloride 102 mmol/L CO2 28 mmol/L Anion Gap 11.6 BUN 17 mg/dL Creatinine 0.8 mg/dL Cr Clearance (Est) 94.08 mL/min Glucose 109 mg/dL Osmolality - Calculated 288 mOsm/kg Calcium 9.2 mg/dL Protein, Total 6.5 g/dL Albumin 4.1 g/dL Globulin 2.4 g/dL Bilirubin, Total 0.4 mg/dL ALT (SGPT) 25 U/L AST (SGOT) 23 U/L Alkaline Phosphatase 88 IU/L WBC 3.9 10 3/uL RBC 4.56 10 6/uL HGB 13.6 g/dL HCT 39.8 % MCV 87.3 fL MCH 29.8 pg MCHC 34.2 g/dL RDW 13.3 % Platelet Count 178 10 3/cmm MPV 9.7 fL Neutrophils 2.56 10 3/uL Lymphocytes 0.8 10 3/uL Monocytes 0.4 10 3/uL Eosinophils 0.1 10 3/uL Basophils 0.0 10 3/uL Neutrophil % 66.4 % Lymphocyte % 20.8 % Monocyte % 9.4 % Eosinophil % 2.6 % Basophils % 0.5 % NRBC % 0 % PSA 0.30 ng/mL Test performed on Mar 02, 2020 09:44 Testosterone, Total 2.5 ng/dL CEA 2.1 ng/mL Impression: Metastatic prostate cancer with T11 involvement per bone scan and CT scan of abdomen pelvis done on January 01, 2020. Patient underwent TRUS P/biopsy on December 20, 2019 which confirmed high-volume James score 4+4 and 3+4 LOG DRIVER and his PSA was more than 50 Patient was started on bicalutamide by urology on January 22, 2020.1. Patient with adenocarcinoma of the rectum, stage ISIS, with metastatic involvement in nonregional lymph nodes. , Started on Zoladex 10.8 mg every 3 months on February 04, 2020 along with monthly Xgeva And daily vitamin D/calcium supplements Follow-up MRI scan of C-spine and thoracic spine and bone scan done on June 02, 2020 showed no evidence of metastatic disease and resolution of T11 abnormality no appears previously treated with no activity or enhancement seen,, Xgeva was changed to every 3 months on August 18, 2020 along with 3 monthly Zoladex His tumor was found to be MSI stable. 2. He has been undergoing chemotherapy with modified FOLFOX, cycle 1 beginning on 02/21/2017. His other medical illnesses include: 3. Hypertension. 4. Hyperlipidemia. Neoadjuvant chemotherapy with FOLFOX ???6 from 02/21/2017 to 05/02/2017 and On 05/30/2017 he began radiation concurrently with Xeloda for chemosensitization. He completed chemoradiation on 07/10/2017 to a total dose of 5072 cGy. On 09/12/2017 he underwent robotic extended low anterior resection with placement of loop ileostomy. Pathology showed grade 2 adenocarcinoma with invasion through the muscularis propria into perirectal tissue. It measured 2.5 x 2 x 1 cm. The tumor regression score was 2. There was involvement in 4 of 12 regional lymph nodes. Final staging was ypT3, ypN2a. On 10/17/2017 began his first cycle of postoperative adjuvant chemotherapy with modified FOLFOX. He had cold sensitivity lasting 3-4 days. He has otherwise tolerated it well.Completed 6 cycles of adjuvant FOLFOX (total 12 doses, 6 as neoadjuvant and another 6 doses as an adjuvant therapy) on 12/26/2017 Follow-up CT PET scan done on 02/17/2018 showed no evidence of recurrent or residual malignancy. Status post colostomy closure Was done in March 2018 Plan: Discussed with patient regarding his labs, PSA is 0.576 compared to 0.30 previously Clinically, patient doing well with no new signs symptom suggestive of disease progression, his follow-up MRI scan of the C-spine as well as thoracic spine and bone scan shows no evidence of bone mets, overall patient doing well with no new signs symptoms of active disease progression, tolerating 3 monthly Zoladex and Xgeva well, at this point, will change his Xgeva to every 3-month along with 3 monthly Zoladex and also refer him to radiation oncology in [place] for evaluation for brachytherapy to the prostate as patient has history of rectal cancer in the past he was treated with combined chemoradiation. Return to clinic in 3 months with CBC CMP and PSA and for Zoladex/Xgeva Signed By: Axel Curry M.D. <<Signature on File>>
== END 2020-08-18 10:59 | disposition home or self-care (01) ==
LOC: ONCMED 11:02
PROVIDERS: PCP Nurse Practitioner Family; Visit Provider Internal Medicine Hematology & Oncology
DX: Z51.11 Encounter for antineoplastic chemotherapy (principal); C61 Malignant neoplasm of prostate; C79.51 Secondary malignant neoplasm of bone; I10 Essential (primary) hypertension; E78.5 Hyperlipidemia, unspecified; Z79.818 Long term (current) use of other agents affecting estrogen receptors and estrogen levels; Z79.899 Other long term (current) drug therapy; Z92.21 Personal history of antineoplastic chemotherapy
CPT/HCPCS: 36591; 84153; 96372; 96402; 99215; J0897; J9202

== ENCOUNTER → 2020-08-27 10:19 | Outpatient (BNVA) | payer MEDICARE, BC, SELFPAY | PROVIDERS: PCP Nurse Practitioner Family; Visit Provider Urology | DX: R33.9 Retention of urine, unspecified (principal); C61 Malignant neoplasm of prostate; R39.9 Unspecified symptoms and signs involving the genitourinary system | CPT/HCPCS: 81003 ==

== ENCOUNTER 2020-09-18 09:55 | Outpatient (CLI) | payer MEDICARE, BC, SELFPAY | END 2020-09-18 09:56 | disposition home or self-care (01) | PROVIDERS: PCP Nurse Practitioner Family; Visit Provider Nurse Practitioner | DX: Z45.2 Encounter for adjustment and management of vascular access device (principal) | CPT/HCPCS: 96523 ==

== ENCOUNTER 2020-10-05 06:56 | Outpatient (CLI) | payer MEDICARE, BC, SELFPAY ==
[2020-10-05 15:50] LABS: Basophils % 0.5 %; Eosinophils # 0.1 10^3/uL (0.0-0.8); Eosinophils % 2.2 %; Hematocrit 37.1 % (42.0-52.0); Hemoglobin 12.7 g/dL (11.7-16.6); Lymphocytes # 0.8 10^3/uL (0.8-4.8); Lymphocytes % 21.8 %; Mean Corpuscular HGB Conc 34.2 g/dL (30.0-36.0); Mean Corpuscular Hemoglobin 29.5 pg (28.0-34.0); Mean Corpuscular Volume 86.3 fL (80-94); Mean Platelet Volume 10.7 fL (7.4-10.4); Monocytes # 0.4 10^3/uL (0.2-0.9); Monocytes % 9.8 %; Neutrophils % 65.4 %; Nucleated Red Blood Cells % 0 %; Platelet Count 141 10^3/cmm (130-400); Red Cell Distribution Width 13.1 % (12.1-15.1); White Blood Count 3.7 10^3/uL (4.0-10.0)
[2020-10-05 16:18] LABS: Prostate Specific Antigen 0.579 ng/mL (0-4)
[2020-10-05 16:30] LABS: Alanine Aminotransferase 25 U/L (0-41); Albumin Level 4.4 g/dL (3.5-5.2); Alkaline Phosphatase 77 IU/L (40-130); Anion Gap 16.2 (5-19); Aspartate Amino Transferase 20 U/L (0-40); Blood Urea Nitrogen 14 mg/dL (8-23); Calcium 8.8 mg/dL (8.5-10.5); Carbon Dioxide 26 mmol/L (22-29); Chloride 101 mmol/L (98-107); Globulin 1.8 g/dL (1.3-4.6); Glucose 94 mg/dL (65-115); Osmolality Calculated 290 mOsm/kg (285-295); Potassium 3.2 mmol/L (3.5-5.1); Sodium 140 mmol/L (136-145); Total Bilirubin 0.6 mg/dL (0.15-1.2); Total Protein 6.2 g/dL (6.6-8.7)
== END 2020-10-05 06:57 | disposition home or self-care (01) ==
LOC: ONCMED 06:59
PROVIDERS: PCP Nurse Practitioner Family; Visit Provider Internal Medicine Hematology & Oncology
DX: C79.82 Secondary malignant neoplasm of genital organs (principal); C77.8 Secondary and unspecified malignant neoplasm of lymph nodes of multiple regions; Z85.048 Personal history of other malignant neoplasm of rectum, rectosigmoid junction, and anus; Z92.3 Personal history of irradiation; Z92.21 Personal history of antineoplastic chemotherapy; Z79.899 Other long term (current) drug therapy; I10 Essential (primary) hypertension; E78.5 Hyperlipidemia, unspecified; Z90.49 Acquired absence of other specified parts of digestive tract
CPT/HCPCS: 36591; 80053; 84153; 85025

== ENCOUNTER 2020-10-06 05:52 | Outpatient (CLI) | payer MEDICARE, BC, SELFPAY ==
[2020-10-06 09:41] LABS: Magnesium 1.7 mg/dL (1.7-2.3)
--- NOTE | 2020-10-07 14:45 | ONC FU_ITS ---
Dr. Curry follow up note Patient: John Brunson Unit #: [id number]: [id number] Dicatated By: Axel Curry M.D.Date of Visit:Oct 06, 2020 Onc Med Follow-up/Prog Note History of Present Illness: Mr Brunson is a 75 year-old man with adenocarcinoma of the rectum, stage ISIS (Tx, Nx, M1a), MSI stable. He had presented with bleeding per rectum for many months. Colonoscopy on 01/10/2017 showed at malignant appearing mass at 6 cm from the anal verge, It was involving three fourth of the circumference. The rest of colon exam showed scattered diverticula in sigmoid colon, but it otherwise appeared normal. Multiple biopsies were obtained with pathology showing moderately differentiated adenocarcinoma, with focal areas which were poorly differentiated. The tumor was found to have intact mismatch repair proteins. CT abdomen/pelvis on 01/10/2017 showed posterior rectal wall thickening measuring 3.8 cm x 2.1 cm, consistent with primary tumor. Additional soft tissue lobulation from the posterior lateral rectum appeared consistent with metastatic deposits or tumor extension from the rectum. An aortocaval lymph node measuring 7 mm in short axis diameter had increased in size since 2008. Subcentimeter periaortic lymph nodes had also increased in size. There was left common iliac chain adenopathy, the largest measures 1.6 cm in diameter. Deeper within the pelvis near bifurcation of left iliac artery there was an additional lymph node measuring 1.2 cm. Numerous small lymph nodes were noted within the perirectal fat and there was some very mild perirectal fat stranding. He was referred to Dr. Lino Bedoya in [place]. He had further evaluation with MRI of the pelvis on 01/18/2017. It showed irregular near-complete circumferential wall thickening roughly centered within the mid rectum consistent with his primary rectal tumor. There was extramural tumor extension abutting the right mesorectal fascia along the right lateral posterior rectal wall. There was bilateral mesorectal lymphadenopathy and left common iliac chain lymphadenopathy. Staging PET/CT on 02/11/2017 showed FDG avid rectal tumor, SUV 15.2, with multiple FDG avid subcentimeter lymph nodes in the surrounding ischial rectal fat. There was also suspected metastatic adenopathy along the pelvic sidewalls and in the retroperitoneum. He initially underwent neoadjuvant chemotherapy with modified FOLFOX, cycle 1 beginning 02/21/2017. He tolerated the first cycle of modified FOLFOX with acceptable toxicity, and he was able to proceed with cycle 2 on 03/06/2017. He had severe cramping in his calves following the second cycle, and he had back spasms which lasted for 3-4 days. He had cold sensitivity which lasted in the range of 11-12 days. With cycle 3, on 03/20/2017, he was given a dose reduction in both the 5-FU infusion and the oxaliplatin. He continued treatment and on 05/02/2017 he began his 6th cycle of chemotherapy. On 05/30/2017 he began radiation concurrently with Xeloda for chemosensitization. He completed radiation on 07/10/2017 to a total dose of 5072 cGy. On 09/12/2017 he underwent robotic extended low anterior resection with placement of loop ileostomy. Pathology showed grade 2 adenocarcinoma with invasion through the muscularis propria into perirectal tissue. It measured 2.5 x 2 x 1 cm. The tumor regression score was 2. There was involvement in 4 of 12 regional lymph nodes. Final staging was ypT3, ypN2a. His other medical illnesses include hypertension and hyperlipidemia. He is a nonsmoker. Mr Brunson continued postoperative chemotherapy on 10/17/2017 with postoperative modified FOLFOX. He has tolerated it well overall. And completed his adjuvant chemotherapy with modified FOLFOX ???6 on 12/26/2017. Status post colostomy closure Done in March 2018 f/u CT scan of abdomen pelvis done on 12/03/2018 showed postsurgical changes at the rectum with posttreatment perirectal soft tissue thickening. No evidence of recurrent mass, obstruction or adenopathy. No metastatic disease to the liver or adrenal glands chest x-ray done on 12/03/2018. Showed no acute pulmonary infiltrate. Chronic elevation right hemidiaphragm CEA was 4.2, As per patient he underwent colonoscopy evaluation May 2019, and Dr. mcconnell , informed him about no abnormality seen and follow-up colonoscopy would be considered in 3 years. Underwent TRUS P/biopsy for abnormal SHILPI and elevated PSA on December 20, 2019 and final pathology report shows large volume [place] score 4+4 and 3+4 BARREL RAISER and bone scan and CT scan of abdomen ordered by urology shows 2 areas of suspicious activity 1 in the spine at T11 and other 1 in the cervical area and CT scan of her abdomen pelvis also confirmed T11 involvement but no pelvic lymphadenopathy, patient was started on bicalutamide on January 22, 2020 And Zoladex every 3 month was added on February 04, 2020 along with monthly Xgeva Patient said he has seen Dr. Mendoza recently and underwent colonoscopy and it was unremarkable and next one is due in 3 years now. Patient underwent sigmoidoscopy on August 13, 2020, as per patient he was told by Dr. Mendoza, there is no abnormality noticed. MRI scan of C-spine done on June 02, 2020 showed no evidence of enhancing bony metastatic disease or epidural disease, asymmetric advanced facet arthropathy right C3-4 and C4-5, MRI scan of thoracic spine shows nonenhancing low signal sclerotic focus in the T11 vertebral body likely benign used to treat. Lower extremity on recent bone scan or no enhancement seen. No evidence of bone mets, Bone scan done on May 05, 2020 shows no evidence of metastatic disease Patient was referred to radiation oncology in [facility] for evaluation for brachytherapy, he was seen there on September 10, 2020 and recommendations were seed implant but without XRT, is a suboptimal to control his unfavorable prostate cancer,, With addition of XRT to implant there is a risk of substantial toxicity, patient was advised to take second opinion and patient would like to go [facility]. Came for follow-up, denies any specific complaints no fever chills, no nausea or vomiting, no diarrhea constipation, no new bony pains, no hematuria or dysuria, tolerating 3 monthly Zoladex/Xgeva well otherwise, patient was recently evaluated by radiation oncology in [place] regarding brachytherapy to the prostate gland but patient got concerned with associated toxicity as suggested by radiation oncology, patient is seeking second opinion at [facility] and now Medications: AmLODIPine Besylate 1 Tablet (of 10 mg) Oral daily, Atorvastatin Calcium 1 Tablet (of 40 mg) Oral daily, Daily Multiple Vitamins 2 Tablet Oral daily, DiazePAM 1 (5 mg) Tablet Oral at bedtime, HydroCHLOROthiazide 1 Tablet (of 50 mg) Oral daily, Imodium A-D 2 (2 mg) Capsule Oral four times a day PRN, Metoprolol Succinate ER 1 Tablet (of 50 mg) Tablet SR 24 HR Oral daily, Ramipril 1 Tablet (of 10 mg) Capsule Oral b.i.d., Senokot S Tablet Oral daily PRN, Tamsulosin HCl 1 Capsule (of 0.4 mg) Oral daily Allergies: No Known Allergies. Review of Systems: Review of Systems is not available for this patient. Vital Signs: Performed on Oct 06, 2020 12:28 Height - 65.00 in Weight - 182.8 lbs BSA - 1.90 sq.m BMI - 30.42 (HIGH) Temperature - 97.4 F (LOW) Pulse - 70 /min Respiration - 18 /min BP - 123/72 mm(hg) O2 Sat - 97 % Pain - 0 Fatigue - 0 Performance Status: 0 - Fully active, able to carry on all predisease activities without restrictions. (ECOG) Physical Examination: ENMT - No mouth sores, no thrush, no jaundice, Respiratory - Lungs are clear to auscultation, Cardiovascular - Regular rate and rhythm of heart, Abdomen - Soft, bowel sounds present, Extremities - No visible edema or rash. Lab/Imaging: Test performed on May 11, 2020 11:10 Sodium 138 mmol/L Potassium 3.6 mmol/L Chloride 102 mmol/L CO2 28 mmol/L Anion Gap 11.6 BUN 17 mg/dL Creatinine 0.8 mg/dL Cr Clearance (Est) 94.08 mL/min Glucose 109 mg/dL Osmolality - Calculated 288 mOsm/kg Calcium 9.2 mg/dL Protein, Total 6.5 g/dL Albumin 4.1 g/dL Globulin 2.4 g/dL Bilirubin, Total 0.4 mg/dL ALT (SGPT) 25 U/L AST (SGOT) 23 U/L Alkaline Phosphatase 88 IU/L WBC 3.9 10 3/uL RBC 4.56 10 6/uL HGB 13.6 g/dL HCT 39.8 % MCV 87.3 fL MCH 29.8 pg MCHC 34.2 g/dL RDW 13.3 % Platelet Count 178 10 3/cmm MPV 9.7 fL Neutrophils 2.56 10 3/uL Lymphocytes 0.8 10 3/uL Monocytes 0.4 10 3/uL Eosinophils 0.1 10 3/uL Basophils 0.0 10 3/uL Neutrophil % 66.4 % Lymphocyte % 20.8 % Monocyte % 9.4 % Eosinophil % 2.6 % Basophils % 0.5 % NRBC % 0 % PSA 0.30 ng/mL Impression: Metastatic prostate cancer with T11 involvement per bone scan and CT scan of abdomen pelvis done on January 01, 2020. Patient underwent TRUS P/biopsy on December 20, 2019 which confirmed high-volume [place] score 4+4 and 3+4 BARREL RAISER and his PSA was more than 50 Patient was started on bicalutamide by urology on January 22, 2020.1. Patient with adenocarcinoma of the rectum, stage ISIS, with metastatic involvement in nonregional lymph nodes. , Started on Zoladex 10.8 mg every 3 months on February 04, 2020 along with monthly Xgeva And daily vitamin D/calcium supplements Follow-up MRI scan of C-spine and thoracic spine and bone scan done on June 02, 2020 showed no evidence of metastatic disease and resolution of T11 abnormality no appears previously treated with no activity or enhancement seen,, Xgeva was changed to every 3 months on August 18, 2020 along with 3 monthly Zoladex His tumor was found to be MSI stable. 2. He has been undergoing chemotherapy with modified FOLFOX, cycle 1 beginning on 02/21/2017. His other medical illnesses include: 3. Hypertension. 4. Hyperlipidemia. Neoadjuvant chemotherapy with FOLFOX ???6 from 02/21/2017 to 05/02/2017 and On 05/30/2017 he began radiation concurrently with Xeloda for chemosensitization. He completed chemoradiation on 07/10/2017 to a total dose of 5072 cGy. On 09/12/2017 he underwent robotic extended low anterior resection with placement of loop ileostomy. Pathology showed grade 2 adenocarcinoma with invasion through the muscularis propria into perirectal tissue. It measured 2.5 x 2 x 1 cm. The tumor regression score was 2. There was involvement in 4 of 12 regional lymph nodes. Final staging was ypT3, ypN2a. On 10/17/2017 began his first cycle of postoperative adjuvant chemotherapy with modified FOLFOX. He had cold sensitivity lasting 3-4 days. He has otherwise tolerated it well.Completed 6 cycles of adjuvant FOLFOX (total 12 doses, 6 as neoadjuvant and another 6 doses as an adjuvant therapy) on 12/26/2017 Follow-up CT PET scan done on 02/17/2018 showed no evidence of recurrent or residual malignancy. Status post colostomy closure Was done in March 2018 Plan: Discussed with patient regarding his concerns and questions, patient is anxious about proceeding with brachytherapy to the prostate and risk involved with brachytherapy alone and if XRT is added, patient, also wants to explore surgical options. As per patient radiation oncologist in [place] encouraged him to seek second opinion, so he would like to go to [facility], in that case we will refer him to [facility] urology oncology department for evaluation of prostate cancer which is being managed with ADT with Zoladex and 3 monthly Xgeva as follow-up bone scan done recently showed excellent response. Patient will return to clinic as scheduled in October 2020 for follow-up with CBC CMP and PSA in 4 weeks scheduled dose of Zoladex/Xgeva, in the meantime will refer him to [facility], urology oncology department for evaluation Signed By: Axel Curry M.D. <<Signature on File>>
== END 2020-10-06 05:53 | disposition home or self-care (01) ==
LOC: ONCMED 05:55
PROVIDERS: PCP Nurse Practitioner Family; Visit Provider Internal Medicine Hematology & Oncology
DX: C79.82 Secondary malignant neoplasm of genital organs (principal); C77.8 Secondary and unspecified malignant neoplasm of lymph nodes of multiple regions; Z85.048 Personal history of other malignant neoplasm of rectum, rectosigmoid junction, and anus; Z92.3 Personal history of irradiation; Z92.21 Personal history of antineoplastic chemotherapy; Z79.899 Other long term (current) drug therapy; I10 Essential (primary) hypertension; E78.5 Hyperlipidemia, unspecified; Z90.49 Acquired absence of other specified parts of digestive tract
CPT/HCPCS: 83735; 99214

== ENCOUNTER 2020-10-23 09:54 | Outpatient (CLI) | payer MEDICARE, BC, SELFPAY | END 2020-10-23 09:55 | disposition home or self-care (01) | PROVIDERS: PCP Nurse Practitioner Family; Visit Provider Internal Medicine Hematology & Oncology | DX: Z45.2 Encounter for adjustment and management of vascular access device (principal) | CPT/HCPCS: 96523 ==

== ENCOUNTER 2020-12-02 13:54 | Outpatient (CLI) | payer MEDICARE, BC, SELFPAY | END 2020-12-02 13:55 | disposition home or self-care (01) | LOC: ONCMED 13:56 | PROVIDERS: PCP Nurse Practitioner Family; Visit Provider Internal Medicine Hematology & Oncology | DX: Z45.2 Encounter for adjustment and management of vascular access device (principal) | CPT/HCPCS: 96523 ==

== ENCOUNTER 2020-12-04 06:00 | Outpatient (CLI) | payer MEDICARE, BC, SELFPAY ==
--- NOTE | 2020-12-04 10:56 | ONC FU_ITS ---
Dr. Curry follow up note Patient: John Brunson Unit #: [id number]: [id number] Dicatated By: Axel Curry M.D.Date of Visit:Dec 04, 2020 Onc Med Follow-up/Prog Note History of Present Illness: Mr Brunson is a 75 year-old man with adenocarcinoma of the rectum, stage ISIS (Tx, Nx, M1a), MSI stable. He had presented with bleeding per rectum for many months. Colonoscopy on 01/10/2017 showed at malignant appearing mass at 6 cm from the anal verge, It was involving three fourth of the circumference. The rest of colon exam showed scattered diverticula in sigmoid colon, but it otherwise appeared normal. Multiple biopsies were obtained with pathology showing moderately differentiated adenocarcinoma, with focal areas which were poorly differentiated. The tumor was found to have intact mismatch repair proteins. CT abdomen/pelvis on 01/10/2017 showed posterior rectal wall thickening measuring 3.8 cm x 2.1 cm, consistent with primary tumor. Additional soft tissue lobulation from the posterior lateral rectum appeared consistent with metastatic deposits or tumor extension from the rectum. An aortocaval lymph node measuring 7 mm in short axis diameter had increased in size since 2008. Subcentimeter periaortic lymph nodes had also increased in size. There was left common iliac chain adenopathy, the largest measures 1.6 cm in diameter. Deeper within the pelvis near bifurcation of left iliac artery there was an additional lymph node measuring 1.2 cm. Numerous small lymph nodes were noted within the perirectal fat and there was some very mild perirectal fat stranding. He was referred to Dr. Lino Bedoya in [place]. He had further evaluation with MRI of the pelvis on 01/18/2017. It showed irregular near-complete circumferential wall thickening roughly centered within the mid rectum consistent with his primary rectal tumor. There was extramural tumor extension abutting the right mesorectal fascia along the right lateral posterior rectal wall. There was bilateral mesorectal lymphadenopathy and left common iliac chain lymphadenopathy. Staging PET/CT on 02/11/2017 showed FDG avid rectal tumor, SUV 15.2, with multiple FDG avid subcentimeter lymph nodes in the surrounding ischial rectal fat. There was also suspected metastatic adenopathy along the pelvic sidewalls and in the retroperitoneum. He initially underwent neoadjuvant chemotherapy with modified FOLFOX, cycle 1 beginning 02/21/2017. He tolerated the first cycle of modified FOLFOX with acceptable toxicity, and he was able to proceed with cycle 2 on 03/06/2017. He had severe cramping in his calves following the second cycle, and he had back spasms which lasted for 3-4 days. He had cold sensitivity which lasted in the range of 11-12 days. With cycle 3, on 03/20/2017, he was given a dose reduction in both the 5-FU infusion and the oxaliplatin. He continued treatment and on 05/02/2017 he began his 6th cycle of chemotherapy. On 05/30/2017 he began radiation concurrently with Xeloda for chemosensitization. He completed radiation on 07/10/2017 to a total dose of 5072 cGy. On 09/12/2017 he underwent robotic extended low anterior resection with placement of loop ileostomy. Pathology showed grade 2 adenocarcinoma with invasion through the muscularis propria into perirectal tissue. It measured 2.5 x 2 x 1 cm. The tumor regression score was 2. There was involvement in 4 of 12 regional lymph nodes. Final staging was ypT3, ypN2a. His other medical illnesses include hypertension and hyperlipidemia. He is a nonsmoker. Mr Brunson continued postoperative chemotherapy on 10/17/2017 with postoperative modified FOLFOX. He has tolerated it well overall. And completed his adjuvant chemotherapy with modified FOLFOX ???6 on 12/26/2017. Status post colostomy closure Done in March 2018 f/u CT scan of abdomen pelvis done on 12/03/2018 showed postsurgical changes at the rectum with posttreatment perirectal soft tissue thickening. No evidence of recurrent mass, obstruction or adenopathy. No metastatic disease to the liver or adrenal glands chest x-ray done on 12/03/2018. Showed no acute pulmonary infiltrate. Chronic elevation right hemidiaphragm CEA was 4.2, As per patient he underwent colonoscopy evaluation May 2019, and Dr. mcconnell , informed him about no abnormality seen and follow-up colonoscopy would be considered in 3 years. Underwent TRUS P/biopsy for abnormal SHILPI and elevated PSA on December 20, 2019 and final pathology report shows large volume Cowpens score 4+4 and 3+4 [employer] and bone scan and CT scan of abdomen ordered by urology shows 2 areas of suspicious activity 1 in the spine at T11 and other 1 in the cervical area and CT scan of her abdomen pelvis also confirmed T11 involvement but no pelvic lymphadenopathy, patient was started on bicalutamide on January 22, 2020 And Zoladex every 3 month was added on February 04, 2020 along with monthly Xgeva Patient said he has seen Dr. Mendoza recently and underwent colonoscopy and it was unremarkable and next one is due in 3 years now. Patient underwent sigmoidoscopy on August 13, 2020, as per patient he was told by Dr. Mendoza, there is no abnormality noticed. MRI scan of C-spine done on June 02, 2020 showed no evidence of enhancing bony metastatic disease or epidural disease, asymmetric advanced facet arthropathy right C3-4 and C4-5, MRI scan of thoracic spine shows nonenhancing low signal sclerotic focus in the T11 vertebral body likely benign used to treat. Lower extremity on recent bone scan or no enhancement seen. No evidence of bone mets, Bone scan done on May 05, 2020 shows no evidence of metastatic disease Patient was referred to radiation oncology in [facility] for evaluation for brachytherapy, he was seen there on September 10, 2020 and recommendations were seed implant but without XRT, is a suboptimal to control his unfavorable prostate cancer,, With addition of XRT to implant there is a risk of substantial toxicity, Patient went to [facility] for second opinion and underwent whole-body bone scan and SPECT/CT on November 17, 2020 which shows scattered sclerotic lesion without suspicious activity like more prominent of these is around 1.5 cm sclerotic lesion in T11 which appears to be more dense compared to December 2019 and was not present on older studies from September 2007 CT scan. Similarly 0.6 cm sclerotic lesion in the anterior right iliac is without suspicious activity and stable left common iliac treated metastatic lymph node., CT scan of chest abdomen pelvis done on November 18, 2020 showed stable partially calcified left common iliac lymph node likely treated metastatic lymph node no retroperitoneal mesenteric or inguinal lymphadenopathy no other abnormality seen except prostatomegaly 4.4 x 4.3 cm with diffuse bladder wall thickening likely secondary to previously enlarged prostate and again seen multiple sclerotic osseous lesion with more sclerotic appearance, subcentimeter sclerotic lesions of sternum, patient was evaluated by Dr. Umanzor, who recommended continue with Zoladex and patient received his 3 monthly dose of Zoladex at [facility] on November 17, 2020 and Was recommended to continue with same and if in future his PSA continue to increase present evidence of castrate resistance, darolutamide can be considered in nonmetastatic setting. the recommendation was surgery was not recommended but proton therapy is under consideration, patient is scheduled to see [facility] radiation oncologist via telemedicine on coming Monday. Came for follow-up, denies any specific complaints, no fever chills, no nausea or vomiting, no diarrhea constipation, no dysuria or hematuria, no new bony pains, patient is very pleased with his visit to [facility] Medications: AmLODIPine Besylate 1 Tablet (of 10 mg) Oral daily, Atorvastatin Calcium 1 Tablet (of 40 mg) Oral daily, Daily Multiple Vitamins 2 Tablet Oral daily, DiazePAM 1 (5 mg) Tablet Oral at bedtime, HydroCHLOROthiazide 1 Tablet (of 50 mg) Oral daily, Imodium A-D 2 (2 mg) Capsule Oral four times a day PRN, Metoprolol Succinate ER 1 Tablet (of 50 mg) Tablet SR 24 HR Oral daily, Ramipril 1 Tablet (of 10 mg) Capsule Oral b.i.d., Senokot S Tablet Oral daily PRN, Tamsulosin HCl 1 Capsule (of 0.4 mg) Oral daily Allergies: No Known Allergies. Review of Systems: Review of Systems is not available for this patient. Vital Signs: Performed on Dec 04, 2020 08:05 Height - 65.00 in Weight - 178.4 lbs (LOW) BSA - 1.88 sq.m BMI - 29.69 Temperature - 97.0 F (LOW) Pulse - 64 /min Respiration - 18 /min BP - 136/72 mm(hg) O2 Sat - 98 % Pain - 0 Performance Status: 0 - Fully active, able to carry on all predisease activities without restrictions. (ECOG) Physical Examination: ENMT - No mouth sores, no thrush, no jaundice, Respiratory - Lungs are clear to auscultation, Cardiovascular - Regular rate and rhythm of heart, Abdomen - Soft, bowel sounds present, Extremities - No visible edema. Lab/Imaging: Most recent lab results are not available for this patient. Impression: Metastatic prostate cancer with T11 involvement per bone scan and CT scan of abdomen pelvis done on January 01, 2020. Patient underwent TRUS P/biopsy on December 20, 2019 which confirmed high-volume Cowpens score 4+4 and 3+4 [employer] and his PSA was more than 50 Patient was started on bicalutamide by urology on January 22, 2020.1. Patient with adenocarcinoma of the rectum, stage ISIS, with metastatic involvement in nonregional lymph nodes. , Started on Zoladex 10.8 mg every 3 months on February 04, 2020 along with monthly Xgeva And daily vitamin D/calcium supplements Follow-up MRI scan of C-spine and thoracic spine and bone scan done on June 02, 2020 showed no evidence of metastatic disease and resolution of T11 abnormality no appears previously treated with no activity or enhancement seen,, Xgeva was changed to every 3 months on August 18, 2020 along with 3 monthly Zoladex His tumor was found to be MSI stable. 2. He has been undergoing chemotherapy with modified FOLFOX, cycle 1 beginning on 02/21/2017. His other medical illnesses include: 3. Hypertension. 4. Hyperlipidemia. Neoadjuvant chemotherapy with FOLFOX ???6 from 02/21/2017 to 05/02/2017 and On 05/30/2017 he began radiation concurrently with Xeloda for chemosensitization. He completed chemoradiation on 07/10/2017 to a total dose of 5072 cGy. On 09/12/2017 he underwent robotic extended low anterior resection with placement of loop ileostomy. Pathology showed grade 2 adenocarcinoma with invasion through the muscularis propria into perirectal tissue. It measured 2.5 x 2 x 1 cm. The tumor regression score was 2. There was involvement in 4 of 12 regional lymph nodes. Final staging was ypT3, ypN2a. On 10/17/2017 began his first cycle of postoperative adjuvant chemotherapy with modified FOLFOX. He had cold sensitivity lasting 3-4 days. He has otherwise tolerated it well.Completed 6 cycles of adjuvant FOLFOX (total 12 doses, 6 as neoadjuvant and another 6 doses as an adjuvant therapy) on 12/26/2017 Follow-up CT PET scan done on 02/17/2018 showed no evidence of recurrent or residual malignancy. Status post colostomy closure Was done in March 2018 Plan: Discussed with patient regarding his disease status and treatment options regarding his prostate cancer, patient went to [facility] for second opinion and was seen in October 2019 at that time he underwent bone scan, SPECT/CT scan and CT scan of chest abdomen pelvis at [facility] which showed no new lesions but persistent sclerotic bone lesions, more sclerotic consistent with treated lesions., Patient was given 3 monthly dose of Zoladex on November 25, 2020 and advised to continue same but darolutamide can be added in case his PSA continue to increase as 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 As far as further treatment regarding his prostate cancer is concerned, surgery was not recommended but proton therapy is under consideration, patient will be evaluated by [facility] radiation oncologist via telemedicine on coming Monday. As far as history of colorectal cancer is concerned patient has no signs symptoms just of recurrence of disease, will continue to monitor In the meantime we will consider DEXA scan as patient is on ADT and is at high risk for osteopenia/osteoporosis and he was advised to continue with vitamin D/calcium supplement and maintain active lifestyle and we will also change his Xgeva to every 3 months along with 3 monthly Zoladex as recently done work-up including bone scan SPECT/CT scan and CT scan of chest abdomen pelvis at [facility] showed no active bone disease. Patient return to clinic in January 2021 for his next 3 monthly dose of Zoladex along with Xgeva in the meantime he will continue with monthly port maintenance, Signed By: Axel Curry M.D. <<Signature on File>>
== END 2020-12-04 06:01 | disposition home or self-care (01) ==
LOC: ONCMED 06:02
PROVIDERS: PCP Nurse Practitioner Family; Visit Provider Internal Medicine Hematology & Oncology
DX: C61 Malignant neoplasm of prostate (principal); C79.51 Secondary malignant neoplasm of bone; C77.8 Secondary and unspecified malignant neoplasm of lymph nodes of multiple regions; E55.9 Vitamin D deficiency, unspecified; E83.51 Hypocalcemia; I10 Essential (primary) hypertension; E78.5 Hyperlipidemia, unspecified; Z79.899 Other long term (current) drug therapy; Z92.21 Personal history of antineoplastic chemotherapy; Z85.048 Personal history of other malignant neoplasm of rectum, rectosigmoid junction, and anus
CPT/HCPCS: 99214

== ENCOUNTER 2020-12-25 09:56 | Outpatient (CLI) | payer MEDICARE, BC, SELFPAY | END 2020-12-25 09:57 | disposition home or self-care (01) | LOC: ONCMED 10:01 | PROVIDERS: PCP Nurse Practitioner Family; Visit Provider Internal Medicine Hematology & Oncology | DX: Z45.2 Encounter for adjustment and management of vascular access device (principal) | CPT/HCPCS: 96523 ==

== ENCOUNTER 2021-01-22 08:57 | Outpatient (CLI) | payer MEDICARE, BC, SELFPAY | END 2021-01-22 08:58 | disposition home or self-care (01) | LOC: ONCMED 09:00 | PROVIDERS: PCP Nurse Practitioner Family; Visit Provider Internal Medicine Medical Oncology | DX: Z45.2 Encounter for adjustment and management of vascular access device (principal) | CPT/HCPCS: 96523 ==

== ENCOUNTER 2021-02-12 07:57 | Outpatient (CLI) | payer MEDICARE, BC, SELFPAY ==
--- NOTE | 2021-02-15 09:30 | ONC FU_ITS ---
Dr. Curry follow up note Patient: John Brunson Unit #: [id number]: 1945 Dicatated By: Axel Curry M.D.Date of Visit:Feb 12, 2021 Onc Med Follow-up/Prog Note History of Present Illness: Mr Brunson is a 75 year-old man with adenocarcinoma of the rectum, stage ISIS (Tx, Nx, M1a), MSI stable. He had presented with bleeding per rectum for many months. Colonoscopy on 01/10/2017 showed at malignant appearing mass at 6 cm from the anal verge, It was involving three fourth of the circumference. The rest of colon exam showed scattered diverticula in sigmoid colon, but it otherwise appeared normal. Multiple biopsies were obtained with pathology showing moderately differentiated adenocarcinoma, with focal areas which were poorly differentiated. The tumor was found to have intact mismatch repair proteins. CT abdomen/pelvis on 01/10/2017 showed posterior rectal wall thickening measuring 3.8 cm x 2.1 cm, consistent with primary tumor. Additional soft tissue lobulation from the posterior lateral rectum appeared consistent with metastatic deposits or tumor extension from the rectum. An aortocaval lymph node measuring 7 mm in short axis diameter had increased in size since 2008. Subcentimeter periaortic lymph nodes had also increased in size. There was left common iliac chain adenopathy, the largest measures 1.6 cm in diameter. Deeper within the pelvis near bifurcation of left iliac artery there was an additional lymph node measuring 1.2 cm. Numerous small lymph nodes were noted within the perirectal fat and there was some very mild perirectal fat stranding. He was referred to Dr. Lino Bedoya in [place]. He had further evaluation with MRI of the pelvis on 01/18/2017. It showed irregular near-complete circumferential wall thickening roughly centered within the mid rectum consistent with his primary rectal tumor. There was extramural tumor extension abutting the right mesorectal fascia along the right lateral posterior rectal wall. There was bilateral mesorectal lymphadenopathy and left common iliac chain lymphadenopathy. Staging PET/CT on 02/11/2017 showed FDG avid rectal tumor, SUV 15.2, with multiple FDG avid subcentimeter lymph nodes in the surrounding ischial rectal fat. There was also suspected metastatic adenopathy along the pelvic sidewalls and in the retroperitoneum. He initially underwent neoadjuvant chemotherapy with modified FOLFOX, cycle 1 beginning 02/21/2017. He tolerated the first cycle of modified FOLFOX with acceptable toxicity, and he was able to proceed with cycle 2 on 03/06/2017. He had severe cramping in his calves following the second cycle, and he had back spasms which lasted for 3-4 days. He had cold sensitivity which lasted in the range of 11-12 days. With cycle 3, on 03/20/2017, he was given a dose reduction in both the 5-FU infusion and the oxaliplatin. He continued treatment and on 05/02/2017 he began his 6th cycle of chemotherapy. On 05/30/2017 he began radiation concurrently with Xeloda for chemosensitization. He completed radiation on 07/10/2017 to a total dose of 5072 cGy. On 09/12/2017 he underwent robotic extended low anterior resection with placement of loop ileostomy. Pathology showed grade 2 adenocarcinoma with invasion through the muscularis propria into perirectal tissue. It measured 2.5 x 2 x 1 cm. The tumor regression score was 2. There was involvement in 4 of 12 regional lymph nodes. Final staging was ypT3, ypN2a. His other medical illnesses include hypertension and hyperlipidemia. He is a nonsmoker. Mr Brunson continued postoperative chemotherapy on 10/17/2017 with postoperative modified FOLFOX. He has tolerated it well overall. And completed his adjuvant chemotherapy with modified FOLFOX ???6 on 12/26/2017. Status post colostomy closure Done in March 2018 f/u CT scan of abdomen pelvis done on 12/03/2018 showed postsurgical changes at the rectum with posttreatment perirectal soft tissue thickening. No evidence of recurrent mass, obstruction or adenopathy. No metastatic disease to the liver or adrenal glands chest x-ray done on 12/03/2018. Showed no acute pulmonary infiltrate. Chronic elevation right hemidiaphragm CEA was 4.2, As per patient he underwent colonoscopy evaluation May 2019, and Dr. mcconnell , informed him about no abnormality seen and follow-up colonoscopy would be considered in 3 years. 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 Mendoza recently and underwent colonoscopy and it was unremarkable and next one is due in 3 years now. Patient underwent sigmoidoscopy on August 13, 2020, as per patient he was told by Dr. Mendoza, there is no abnormality noticed. MRI scan of C-spine done on June 02, 2020 showed no evidence of enhancing bony metastatic disease or epidural disease, asymmetric advanced facet arthropathy right C3-4 and C4-5, MRI scan of thoracic spine shows nonenhancing low signal sclerotic focus in the T11 vertebral body likely benign used to treat. Lower extremity on recent bone scan or no enhancement seen. No evidence of bone mets, Bone scan done on May 05, 2020 shows no evidence of metastatic disease Patient was referred to radiation oncology in [facility] for evaluation for brachytherapy, he was seen there on September 10, 2020 and recommendations were seed implant but without XRT, is a suboptimal to control his unfavorable prostate cancer,, With addition of XRT to implant there is a risk of substantial toxicity, Patient went to [facility] for second opinion and underwent whole-body bone scan and SPECT/CT on November 17, 2020 which shows scattered sclerotic lesion without suspicious activity like more prominent of these is around 1.5 cm sclerotic lesion in T11 which appears to be more dense compared to December 2019 and was not present on older studies from September 2007 CT scan. Similarly 0.6 cm sclerotic lesion in the anterior right iliac is without suspicious activity and stable left common iliac treated metastatic lymph node., CT scan of chest abdomen pelvis done on November 18, 2020 showed stable partially calcified left common iliac lymph node likely treated metastatic lymph node no retroperitoneal mesenteric or inguinal lymphadenopathy no other abnormality seen except prostatomegaly 4.4 x 4.3 cm with diffuse bladder wall thickening likely secondary to previously enlarged prostate and again seen multiple sclerotic osseous lesion with more sclerotic appearance, subcentimeter sclerotic lesions of sternum, patient was evaluated by Dr. Umanzor, who recommended continue with Zoladex and patient received his 3 monthly dose of Zoladex at [facility] on November 17, 2020 and Was recommended to continue with same and if in future his PSA continue to increase present evidence of castrate resistance, darolutamide can be considered in nonmetastatic setting. the recommendation was surgery was not recommended but proton therapy is under consideration, patient is scheduled to see [facility] radiation oncologist via telemedicine on coming Monday. Came for follow-up, denies any specific complaints, no fever chills, no nausea or vomiting, no diarrhea constipation, no melena hematochezia, no dysuria no hematuria no abdominal pain, no jaundice, no new bony pains Medications: AmLODIPine Besylate 1 Tablet (of 10 mg) Oral daily, Atorvastatin Calcium 1 Tablet (of 40 mg) Oral daily, Daily Multiple Vitamins 2 Tablet Oral daily, DiazePAM 1 (5 mg) Tablet Oral at bedtime, HydroCHLOROthiazide 1 Tablet (of 50 mg) Oral daily, Imodium A-D 2 (2 mg) Capsule Oral four times a day PRN, Metoprolol Succinate ER 1 Tablet (of 50 mg) Tablet SR 24 HR Oral daily, Ramipril 1 Tablet (of 10 mg) Capsule Oral b.i.d., Senokot S Tablet Oral daily PRN, Tamsulosin HCl 1 Capsule (of 0.4 mg) Oral daily Allergies: No Known Allergies. Review of Systems: Review of Systems is not available for this patient. Vital Signs: Performed on Feb 12, 2021 09:57 Height - 65.00 in Weight - 181 lbs (HIGH) BSA - 1.90 sq.m BMI - 30.12 (HIGH) Temperature - 98.0 F (LOW) Pulse - 67 /min Respiration - 18 /min BP - 125/71 mm(hg) O2 Sat - 96 % Pain - 1 Fatigue - 0 Performance Status: 0 - Fully active, able to carry on all predisease activities without restrictions. (ECOG) Physical Examination: ENMT - No mouth sores, no thrush, no jaundice, Respiratory - Lungs are clear to auscultation, Cardiovascular - Regular rate and rhythm of heart, Abdomen - Soft, bowel sounds present, Extremities - No visible edema. Lab/Imaging: Most recent lab results are not available for this patient. Impression: Metastatic prostate cancer with T11 involvement per bone scan and CT scan of abdomen pelvis done on January 01, 2020. 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 Patient with adenocarcinoma of the rectum, stage ISIS, with metastatic involvement in nonregional lymph nodes. , Started on Zoladex 10.8 mg every 3 months on February 04, 2020 along with monthly Xgeva And daily vitamin D/calcium supplements Follow-up MRI scan of C-spine and thoracic spine and bone scan done on June 02, 2020 showed no evidence of metastatic disease and resolution of T11 abnormality no appears previously treated with no activity or enhancement seen,, Xgeva was changed to every 3 months on August 18, 2020 along with 3 monthly Zoladex His tumor was found to be MSI stable. 2. He has been undergoing chemotherapy with modified FOLFOX, cycle 1 beginning on 02/21/2017. His other medical illnesses include: 3. Hypertension. 4. Hyperlipidemia. Neoadjuvant chemotherapy with FOLFOX ???6 from 02/21/2017 to 05/02/2017 and On 05/30/2017 he began radiation concurrently with Xeloda for chemosensitization. He completed chemoradiation on 07/10/2017 to a total dose of 5072 cGy. On 09/12/2017 he underwent robotic extended low anterior resection with placement of loop ileostomy. Pathology showed grade 2 adenocarcinoma with invasion through the muscularis propria into perirectal tissue. It measured 2.5 x 2 x 1 cm. The tumor regression score was 2. There was involvement in 4 of 12 regional lymph nodes. Final staging was ypT3, ypN2a. On 10/17/2017 began his first cycle of postoperative adjuvant chemotherapy with modified FOLFOX. He had cold sensitivity lasting 3-4 days. He has otherwise tolerated it well.Completed 6 cycles of adjuvant FOLFOX (total 12 doses, 6 as neoadjuvant and another 6 doses as an adjuvant therapy) on 12/26/2017 Follow-up CT PET scan done on 02/17/2018 showed no evidence of recurrent or residual malignancy. Status post colostomy closure Was done in March 2018 Plan: Discussed with patient regarding his labs, PSA is 1.19 compared to 0.579 on November 04, 2020 and prior to that PSA was 0.576 on August 18, 2020. Clinically, patient is doing reasonably well with no new signs symptom suggestive of disease progression but his PSA is continued to go up, causing concern regarding disease progression as per patient he is scheduled to visit medical oncologist at [facility] via telemedicine in first week of March 2021, as per patient he will discuss with him regarding further management and planning as far as prostate cancer is concerned. His repeat lab work-up shows further progression in PSA after 2 stable readings from July to September 2020, at this point, will repeat his PSA again in a month to establish upward trend, if it does, may consider PSMA scan to detect local progression or metastatic disease but will follow [facility] recommendation if they offer something different. In the meantime we will continue with 3 monthly Zoladex, patient received his last Zoladex at [facility] Signed By: Axel Curry M.D. <<Signature on File>>
== END 2021-02-12 07:58 | disposition home or self-care (01) ==
LOC: ONCMED 08:00
PROVIDERS: PCP Nurse Practitioner Family; Visit Provider Internal Medicine Hematology & Oncology
DX: C61 Malignant neoplasm of prostate (principal); C79.51 Secondary malignant neoplasm of bone; I10 Essential (primary) hypertension; E78.5 Hyperlipidemia, unspecified; Z79.818 Long term (current) use of other agents affecting estrogen receptors and estrogen levels; Z92.21 Personal history of antineoplastic chemotherapy
CPT/HCPCS: 36591; 84153; 99214

== ENCOUNTER 2021-02-17 06:40 | Outpatient (CLI) | payer MEDICARE, BC, SELFPAY ==
[2021-02-17] MEDS: lidocaine 1% INJ 20 mL SUBCUT (13:15)
[2021-02-17] MEDS: goserelin acetate 10.8 mg Implant SUBCUT (13:25)
== END 2021-02-17 06:41 | disposition home or self-care (01) ==
LOC: ONCMED 06:41
PROVIDERS: PCP Nurse Practitioner Family; Visit Provider Internal Medicine Hematology & Oncology
DX: C20 Malignant neoplasm of rectum (principal); C77.8 Secondary and unspecified malignant neoplasm of lymph nodes of multiple regions; C61 Malignant neoplasm of prostate; D64.9 Anemia, unspecified; Z79.818 Long term (current) use of other agents affecting estrogen receptors and estrogen levels
CPT/HCPCS: 96372; 96402; J9202

== ENCOUNTER 2021-03-11 14:01 | Outpatient (CLI) | payer MEDICARE, BC, SELFPAY ==
--- NOTE | 2021-03-11 14:06 | XR_ITS ---
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 FINDINGS: The L1-L4 bone mineral density measures 1.966 g/cm2. This corresponds to a T score score of 6.2 and Z score of 6.7. Left femoral neck bone mineral density measures 1.042 g/cm2. This corresponds to a T score of -0.4 an d Z score of 0.4. Right femoral neck bone mineral density measures 1.073 g/cm2. This corresponds to a T score -0.2of an d Z score of 0.6. Mean femoral neck bone mineral density measures 1.058 g/cm2. This corresponds to a T score of -0.3 an d Z score of 0.5. XR/XR DEXA axial skeleton* 36712 IMPRESSION: Normal bone mineralization lumbar spine. Normal bone mineralization femoral nec ks. Patient's FRAX calculated 10 year probability for major osteoporotic fracture i s 7.8 % and osteoporotic hip fracture is 1.7%.
== END 2021-03-11 14:02 | disposition home or self-care (01) ==
PROVIDERS: PCP Nurse Practitioner Family; Visit Provider Internal Medicine Hematology & Oncology
DX: E29.9 Testicular dysfunction, unspecified (principal); Z79.52 Long term (current) use of systemic steroids
CPT/HCPCS: 77080

== ENCOUNTER 2021-03-18 08:22 | Outpatient (CLI) | payer MEDICARE, BC, SELFPAY ==
[2021-03-18 10:05] LABS: Testosterone Total 2.5 ng/dL (193-740)
--- NOTE | 2021-03-18 11:51 | ONC FU_ITS ---
Dr. Curry follow up note Patient: John Brunson Unit #: [id number]: 1945 Dicatated By: Axel Curry M.D.Date of Visit:Mar 18, 2021 Onc Med Follow-up/Prog Note History of Present Illness: Mr Brunson is a 75 year-old man with adenocarcinoma of the rectum, stage ISIS (Tx, Nx, M1a), MSI stable. He had presented with bleeding per rectum for many months. Colonoscopy on 01/10/2017 showed at malignant appearing mass at 6 cm from the anal verge, It was involving three fourth of the circumference. The rest of colon exam showed scattered diverticula in sigmoid colon, but it otherwise appeared normal. Multiple biopsies were obtained with pathology showing moderately differentiated adenocarcinoma, with focal areas which were poorly differentiated. The tumor was found to have intact mismatch repair proteins. CT abdomen/pelvis on 01/10/2017 showed posterior rectal wall thickening measuring 3.8 cm x 2.1 cm, consistent with primary tumor. Additional soft tissue lobulation from the posterior lateral rectum appeared consistent with metastatic deposits or tumor extension from the rectum. An aortocaval lymph node measuring 7 mm in short axis diameter had increased in size since 2008. Subcentimeter periaortic lymph nodes had also increased in size. There was left common iliac chain adenopathy, the largest measures 1.6 cm in diameter. Deeper within the pelvis near bifurcation of left iliac artery there was an additional lymph node measuring 1.2 cm. Numerous small lymph nodes were noted within the perirectal fat and there was some very mild perirectal fat stranding. He was referred to Dr. Lino Bedoya in [place]. He had further evaluation with MRI of the pelvis on 01/18/2017. It showed irregular near-complete circumferential wall thickening roughly centered within the mid rectum consistent with his primary rectal tumor. There was extramural tumor extension abutting the right mesorectal fascia along the right lateral posterior rectal wall. There was bilateral mesorectal lymphadenopathy and left common iliac chain lymphadenopathy. Staging PET/CT on 02/11/2017 showed FDG avid rectal tumor, SUV 15.2, with multiple FDG avid subcentimeter lymph nodes in the surrounding ischial rectal fat. There was also suspected metastatic adenopathy along the pelvic sidewalls and in the retroperitoneum. He initially underwent neoadjuvant chemotherapy with modified FOLFOX, cycle 1 beginning 02/21/2017. He tolerated the first cycle of modified FOLFOX with acceptable toxicity, and he was able to proceed with cycle 2 on 03/06/2017. He had severe cramping in his calves following the second cycle, and he had back spasms which lasted for 3-4 days. He had cold sensitivity which lasted in the range of 11-12 days. With cycle 3, on 03/20/2017, he was given a dose reduction in both the 5-FU infusion and the oxaliplatin. He continued treatment and on 05/02/2017 he began his 6th cycle of chemotherapy. On 05/30/2017 he began radiation concurrently with Xeloda for chemosensitization. He completed radiation on 07/10/2017 to a total dose of 5072 cGy. On 09/12/2017 he underwent robotic extended low anterior resection with placement of loop ileostomy. Pathology showed grade 2 adenocarcinoma with invasion through the muscularis propria into perirectal tissue. It measured 2.5 x 2 x 1 cm. The tumor regression score was 2. There was involvement in 4 of 12 regional lymph nodes. Final staging was ypT3, ypN2a. His other medical illnesses include hypertension and hyperlipidemia. He is a nonsmoker. Mr Brunson continued postoperative chemotherapy on 10/17/2017 with postoperative modified FOLFOX. He has tolerated it well overall. And completed his adjuvant chemotherapy with modified FOLFOX ???6 on 12/26/2017. Status post colostomy closure Done in March 2018 f/u CT scan of abdomen pelvis done on 12/03/2018 showed postsurgical changes at the rectum with posttreatment perirectal soft tissue thickening. No evidence of recurrent mass, obstruction or adenopathy. No metastatic disease to the liver or adrenal glands chest x-ray done on 12/03/2018. Showed no acute pulmonary infiltrate. Chronic elevation right hemidiaphragm CEA was 4.2, As per patient he underwent colonoscopy evaluation May 2019, and Dr. mcconnell , informed him about no abnormality seen and follow-up colonoscopy would be considered in 3 years. Underwent TRUS P/biopsy for abnormal SHILPI and elevated PSA on December 20, 2019 and final pathology report shows large volume Jasper score 4+4 and 3+4 POLICY ADVISOR and bone scan and CT scan of abdomen ordered by urology shows 2 areas of suspicious activity 1 in the spine at T11 and other 1 in the cervical area and CT scan of her abdomen pelvis also confirmed T11 involvement but no pelvic lymphadenopathy, patient was started on bicalutamide on January 22, 2020 And Zoladex every 3 month was added on February 04, 2020 along with monthly Xgeva Patient said he has seen Dr. Mendoza recently and underwent colonoscopy and it was unremarkable and next one is due in 3 years now. Patient underwent sigmoidoscopy on August 13, 2020, as per patient he was told by Dr. Mendoza, there is no abnormality noticed. MRI scan of C-spine done on June 02, 2020 showed no evidence of enhancing bony metastatic disease or epidural disease, asymmetric advanced facet arthropathy right C3-4 and C4-5, MRI scan of thoracic spine shows nonenhancing low signal sclerotic focus in the T11 vertebral body likely benign used to treat. Lower extremity on recent bone scan or no enhancement seen. No evidence of bone mets, Bone scan done on May 05, 2020 shows no evidence of metastatic disease Patient was referred to radiation oncology in [facility] for evaluation for brachytherapy, he was seen there on September 10, 2020 and recommendations were seed implant but without XRT, is a suboptimal to control his unfavorable prostate cancer,, With addition of XRT to implant there is a risk of substantial toxicity, Patient went to [facility] for second opinion and underwent whole-body bone scan and SPECT/CT on November 17, 2020 which shows scattered sclerotic lesion without suspicious activity like more prominent of these is around 1.5 cm sclerotic lesion in T11 which appears to be more dense compared to December 2019 and was not present on older studies from September 2007 CT scan. Similarly 0.6 cm sclerotic lesion in the anterior right iliac is without suspicious activity and stable left common iliac treated metastatic lymph node., CT scan of chest abdomen pelvis done on November 18, 2020 showed stable partially calcified left common iliac lymph node likely treated metastatic lymph node no retroperitoneal mesenteric or inguinal lymphadenopathy no other abnormality seen except prostatomegaly 4.4 x 4.3 cm with diffuse bladder wall thickening likely secondary to previously enlarged prostate and again seen multiple sclerotic osseous lesion with more sclerotic appearance, subcentimeter sclerotic lesions of sternum, patient was evaluated by Dr. Umanzor, who recommended continue with Zoladex and patient received his 3 monthly dose of Zoladex at [facility] on November 17, 2020 and Was recommended to continue with same and if in future his PSA continue to increase present evidence of castrate resistance, darolutamide can be considered in nonmetastatic setting. the recommendation was surgery was not recommended but proton therapy is under consideration, Came for follow-up, denies any specific complaints, no fever chills, no nausea or vomiting, no diarrhea constipation, no new bony pains, no dysuria hematuria, no melena or hematochezia, no jaundice. As per patient, in the first week of March he had televisit evaluation with physician from [facility], and he was advised to get PSMA scan in March but patient would prefer to get it done in May 2021 and [facility]. Medications: AmLODIPine Besylate 1 Tablet (of 10 mg) Oral daily, Atorvastatin Calcium 1 Tablet (of 40 mg) Oral daily, Daily Multiple Vitamins 2 Tablet Oral daily, DiazePAM 1 (5 mg) Tablet Oral at bedtime, HydroCHLOROthiazide 1 Tablet (of 50 mg) Oral daily, Imodium A-D 2 (2 mg) Capsule Oral four times a day PRN, Metoprolol Succinate ER 1 Tablet (of 50 mg) Tablet SR 24 HR Oral daily, Ramipril 1 Tablet (of 10 mg) Capsule Oral b.i.d., Senokot S Tablet Oral daily PRN, Tamsulosin HCl 1 Capsule (of 0.4 mg) Oral daily Allergies: No Known Allergies. Review of Systems: Review of Systems is not available for this patient. Vital Signs: Performed on Mar 18, 2021 10:45 Height - 65.00 in Weight - 177.4 lbs (LOW) BSA - 1.88 sq.m BMI - 29.52 Temperature - 97.8 F (LOW) Pulse - 62 /min Respiration - 18 /min BP - 120/70 mm(hg) O2 Sat - 98 % Pain - 0 Fatigue - 0 Performance Status: 0 - Fully active, able to carry on all predisease activities without restrictions. (ECOG) Physical Examination: ENMT - No mouth sores, no thrush, no jaundice, Respiratory - Lungs are clear to auscultation, Cardiovascular - Regular rate and rhythm of heart, Gastrointestinal - Soft, bowel sounds present, Extremities - No visible edema. Lab/Imaging: Most recent lab results are not available for this patient. Impression: Metastatic prostate cancer with T11 involvement per bone scan and CT scan of abdomen pelvis done on January 01, 2020. Patient underwent TRUS P/biopsy on December 20, 2019 which confirmed high-volume James score 4+4 and 3+4 POLICY ADVISOR and his PSA was more than 50 Patient was started on bicalutamide by urology on January 22, 2020.1. Patient with adenocarcinoma of the rectum, stage ISIS, with metastatic involvement in nonregional lymph nodes. , Started on Zoladex 10.8 mg every 3 months on February 04, 2020 along with monthly Xgeva And daily vitamin D/calcium supplements Follow-up MRI scan of C-spine and thoracic spine and bone scan done on June 02, 2020 showed no evidence of metastatic disease and resolution of T11 abnormality no appears previously treated with no activity or enhancement seen,, Xgeva was changed to every 3 months on August 18, 2020 along with 3 monthly Zoladex His tumor was found to be MSI stable. 2. He has been undergoing chemotherapy with modified FOLFOX, cycle 1 beginning on 02/21/2017. His other medical illnesses include: 3. Hypertension. 4. Hyperlipidemia. Neoadjuvant chemotherapy with FOLFOX ???6 from 02/21/2017 to 05/02/2017 and On 05/30/2017 he began radiation concurrently with Xeloda for chemosensitization. He completed chemoradiation on 07/10/2017 to a total dose of 5072 cGy. On 09/12/2017 he underwent robotic extended low anterior resection with placement of loop ileostomy. Pathology showed grade 2 adenocarcinoma with invasion through the muscularis propria into perirectal tissue. It measured 2.5 x 2 x 1 cm. The tumor regression score was 2. There was involvement in 4 of 12 regional lymph nodes. Final staging was ypT3, ypN2a. On 10/17/2017 began his first cycle of postoperative adjuvant chemotherapy with modified FOLFOX. He had cold sensitivity lasting 3-4 days. He has otherwise tolerated it well.Completed 6 cycles of adjuvant FOLFOX (total 12 doses, 6 as neoadjuvant and another 6 doses as an adjuvant therapy) on 12/26/2017 Follow-up CT PET scan done on 02/17/2018 showed no evidence of recurrent or residual malignancy. Status post colostomy closure Was done in March 2018 Plan: Discussed with patient regarding his labs PSA is 1.02 compared to 1.19 previously and his testosterone is 2.5, His DEXA scan shows normal mineralization Clinically, patient doing well with no new signs symptoms history of disease progression his follow-up PSA shows stable values now is 1.02 compared to 1.19 previously, as per patient as per his discussion with physician from [facility], now PSMA scan is under consideration but patient is considering getting it done here in May 2021 at [facility] in [place], at that time is also scheduled for his 3 monthly Zoladex, patient said he might get his dose there as it was done in the past too. In that case we will see him back in June 2021 With CBC CMP and PSA Signed By: Axel Curry M.D. <<Signature on File>>
== END 2021-03-18 08:23 | disposition home or self-care (01) ==
LOC: ONCMED 08:24
PROVIDERS: PCP Nurse Practitioner Family; Visit Provider Internal Medicine Hematology & Oncology
DX: C61 Malignant neoplasm of prostate (principal); C79.51 Secondary malignant neoplasm of bone; R97.20 Elevated prostate specific antigen [PSA]; I10 Essential (primary) hypertension; E78.5 Hyperlipidemia, unspecified; Z79.818 Long term (current) use of other agents affecting estrogen receptors and estrogen levels; Z92.21 Personal history of antineoplastic chemotherapy
CPT/HCPCS: 36591; 84153; 84403; 99214

== ENCOUNTER 2021-05-24 14:06 | Outpatient (CLI) | payer MEDICARE, BC, SELFPAY ==
[2021-05-24] MEDS: lidocaine 1% INJ 20 mL INJECTION (14:30)
[2021-05-24] MEDS: goserelin acetate 10.8 mg Implant SUBCUT (14:46)
== END 2021-05-24 14:07 | disposition home or self-care (01) ==
LOC: ONCMED 14:10
PROVIDERS: PCP Nurse Practitioner Family; Visit Provider Internal Medicine Hematology & Oncology
DX: C61 Malignant neoplasm of prostate (principal); Z79.818 Long term (current) use of other agents affecting estrogen receptors and estrogen levels; Z79.899 Other long term (current) drug therapy; I10 Essential (primary) hypertension; E78.5 Hyperlipidemia, unspecified
CPT/HCPCS: 96372; 96402; 96523; J9202

== ENCOUNTER 2021-06-22 11:07 | Outpatient (CLI) | payer MEDICARE, BC, SELFPAY ==
[2021-06-22 11:48] LABS: Basophils % 0.4 %; Eosinophils # 0.1 10^3/uL (0.0-0.8); Eosinophils % 1.8 %; Hematocrit 36.4 % (42.0-52.0); Hemoglobin 12.4 g/dL (11.7-16.6); Lymphocytes # 0.8 10^3/uL (0.8-4.8); Lymphocytes % 18.4 %; Mean Corpuscular HGB Conc 34.1 g/dL (30.0-36.0); Mean Corpuscular Hemoglobin 29.9 pg (28.0-34.0); Mean Corpuscular Volume 87.7 fl (80-94); Mean Platelet Volume 9.5 fL (7.4-10.4); Monocytes # 0.4 10^3/uL (0.2-0.9); Neutrophils # 3.21 10^3/uL (1.8-7.7); Nucleated Red Blood Cells % 0 %; Platelet Count 178 10^3/cmm (130-400); Red Blood Count 4.15 10^6/uL (4.1-5.3); Red Cell Distribution Width 13.8 % (12.1-15.1); White Blood Count 4.5 10^3/uL (4.0-10.0)
[2021-06-22 12:15] LABS: Alanine Aminotransferase 22 U/L (0-41); Albumin Level 4.2 g/dL (3.5-5.2); Alkaline Phosphatase 90 IU/L (40-130); Anion Gap 15.5 (5-19); Aspartate Amino Transferase 20 U/L (0-40); Blood Urea Nitrogen 14 mg/dL (8-23); Calcium 9.2 mg/dL (8.5-10.5); Carbon Dioxide 28 mmol/L (22-29); Chloride 102 mmol/L (98-107); Globulin 2.5 g/dL (1.3-4.6); Glucose 140 mg/dL (65-115); Osmolality Calculated 297 mOsm/kg (285-295); Potassium 3.5 mmol/L (3.5-5.1); Sodium 142 mmol/L (136-145); Total Bilirubin 0.5 mg/dL (0.15-1.2); Total Protein 6.7 g/dL (6.6-8.7)
--- NOTE | 2021-06-23 11:32 | ONC FU_ITS ---
Dr. Curry follow up note Patient: John Brunson Unit #: [id number]: 1945 Dicatated By: Axel Curry M.D.Date of Visit:Jun 22, 2021 Onc Med Follow-up/Prog Note History of Present Illness: Mr Brunson is a 75 year-old man with adenocarcinoma of the rectum, stage ISIS (Tx, Nx, M1a), MSI stable. He had presented with bleeding per rectum for many months. Colonoscopy on 01/10/2017 showed at malignant appearing mass at 6 cm from the anal verge, It was involving three fourth of the circumference. The rest of colon exam showed scattered diverticula in sigmoid colon, but it otherwise appeared normal. Multiple biopsies were obtained with pathology showing moderately differentiated adenocarcinoma, with focal areas which were poorly differentiated. The tumor was found to have intact mismatch repair proteins. CT abdomen/pelvis on 01/10/2017 showed posterior rectal wall thickening measuring 3.8 cm x 2.1 cm, consistent with primary tumor. Additional soft tissue lobulation from the posterior lateral rectum appeared consistent with metastatic deposits or tumor extension from the rectum. An aortocaval lymph node measuring 7 mm in short axis diameter had increased in size since 2008. Subcentimeter periaortic lymph nodes had also increased in size. There was left common iliac chain adenopathy, the largest measures 1.6 cm in diameter. Deeper within the pelvis near bifurcation of left iliac artery there was an additional lymph node measuring 1.2 cm. Numerous small lymph nodes were noted within the perirectal fat and there was some very mild perirectal fat stranding. He was referred to Dr. Lino Bedoya in [place]. He had further evaluation with MRI of the pelvis on 01/18/2017. It showed irregular near-complete circumferential wall thickening roughly centered within the mid rectum consistent with his primary rectal tumor. There was extramural tumor extension abutting the right mesorectal fascia along the right lateral posterior rectal wall. There was bilateral mesorectal lymphadenopathy and left common iliac chain lymphadenopathy. Staging PET/CT on 02/11/2017 showed FDG avid rectal tumor, SUV 15.2, with multiple FDG avid subcentimeter lymph nodes in the surrounding ischial rectal fat. There was also suspected metastatic adenopathy along the pelvic sidewalls and in the retroperitoneum. He initially underwent neoadjuvant chemotherapy with modified FOLFOX, cycle 1 beginning 02/21/2017. He tolerated the first cycle of modified FOLFOX with acceptable toxicity, and he was able to proceed with cycle 2 on 03/06/2017. He had severe cramping in his calves following the second cycle, and he had back spasms which lasted for 3-4 days. He had cold sensitivity which lasted in the range of 11-12 days. With cycle 3, on 03/20/2017, he was given a dose reduction in both the 5-FU infusion and the oxaliplatin. He continued treatment and on 05/02/2017 he began his 6th cycle of chemotherapy. On 05/30/2017 he began radiation concurrently with Xeloda for chemosensitization. He completed radiation on 07/10/2017 to a total dose of 5072 cGy. On 09/12/2017 he underwent robotic extended low anterior resection with placement of loop ileostomy. Pathology showed grade 2 adenocarcinoma with invasion through the muscularis propria into perirectal tissue. It measured 2.5 x 2 x 1 cm. The tumor regression score was 2. There was involvement in 4 of 12 regional lymph nodes. Final staging was ypT3, ypN2a. His other medical illnesses include hypertension and hyperlipidemia. He is a nonsmoker. Mr Brunson continued postoperative chemotherapy on 10/17/2017 with postoperative modified FOLFOX. He has tolerated it well overall. And completed his adjuvant chemotherapy with modified FOLFOX ???6 on 12/26/2017. Status post colostomy closure Done in March 2018 f/u CT scan of abdomen pelvis done on 12/03/2018 showed postsurgical changes at the rectum with posttreatment perirectal soft tissue thickening. No evidence of recurrent mass, obstruction or adenopathy. No metastatic disease to the liver or adrenal glands chest x-ray done on 12/03/2018. Showed no acute pulmonary infiltrate. Chronic elevation right hemidiaphragm CEA was 4.2, As per patient he underwent colonoscopy evaluation May 2019, and Dr. mcconnell , informed him about no abnormality seen and follow-up colonoscopy would be considered in 3 years. Underwent TRUS P/biopsy for abnormal SHILPI and elevated PSA on December 20, 2019 and final pathology report shows large volume Zahl score 4+4 and 3+4 [employer] and bone scan and CT scan of abdomen ordered by urology shows 2 areas of suspicious activity 1 in the spine at T11 and other 1 in the cervical area and CT scan of her abdomen pelvis also confirmed T11 involvement but no pelvic lymphadenopathy, patient was started on bicalutamide on January 22, 2020 And Zoladex every 3 month was added on February 04, 2020 along with monthly Xgeva Patient said he has seen Dr. Mendoza recently and underwent colonoscopy and it was unremarkable and next one is due in 3 years now. Patient underwent sigmoidoscopy on August 13, 2020, as per patient he was told by Dr. Mendoza, there is no abnormality noticed. MRI scan of C-spine done on June 02, 2020 showed no evidence of enhancing bony metastatic disease or epidural disease, asymmetric advanced facet arthropathy right C3-4 and C4-5, MRI scan of thoracic spine shows nonenhancing low signal sclerotic focus in the T11 vertebral body likely benign used to treat. Lower extremity on recent bone scan or no enhancement seen. No evidence of bone mets, Bone scan done on May 05, 2020 shows no evidence of metastatic disease Patient was referred to radiation oncology in [facility] for evaluation for brachytherapy, he was seen there on September 10, 2020 and recommendations were seed implant but without XRT, is a suboptimal to control his unfavorable prostate cancer,, With addition of XRT to implant there is a risk of substantial toxicity, Patient went to [facility] for second opinion and underwent whole-body bone scan and SPECT/CT on November 17, 2020 which shows scattered sclerotic lesion without suspicious activity like more prominent of these is around 1.5 cm sclerotic lesion in T11 which appears to be more dense compared to December 2019 and was not present on older studies from September 2007 CT scan. Similarly 0.6 cm sclerotic lesion in the anterior right iliac is without suspicious activity and stable left common iliac treated metastatic lymph node., CT scan of chest abdomen pelvis done on November 18, 2020 showed stable partially calcified left common iliac lymph node likely treated metastatic lymph node no retroperitoneal mesenteric or inguinal lymphadenopathy no other abnormality seen except prostatomegaly 4.4 x 4.3 cm with diffuse bladder wall thickening likely secondary to previously enlarged prostate and again seen multiple sclerotic osseous lesion with more sclerotic appearance, subcentimeter sclerotic lesions of sternum, patient was evaluated by Dr. Umanzor, who recommended continue with Zoladex and patient received his 3 monthly dose of Zoladex at [facility] on November 17, 2020 and Was recommended to continue with same and if in future his PSA continue to increase present evidence of castrate resistance, darolutamide can be considered in nonmetastatic setting. surgery was not recommended but proton therapy is under consideration, On May 10, 2021, he underwent follow-up PSMA scan at [facility] in [place], which showed no evidence of disease. But his follow-up PSA done on May 10, 2021 was 1.6 compared to 0.8 on November 17, 2020, as per patient Dr. Colbert, his medical oncologist at [facility] recommended darolutamide but his insurance declined coverage but approved apalutamide, Came for follow-up, denies any specific complaints, no fever chills, no nausea or vomiting, no diarrhea or constipation, no new bony pains, no hematuria or dysuria, no hemoptysis hematemesis, no jaundice, weight is stable, appetite is good. Patient is tolerating Zoladex well, recently underwent PSMA scan at [facility], scan showed no evidence of disease but nothing was mentioned about prostate gland. As per patient his PSA checked at [facility] on May 10, 2021 showed value at 1.6 compared to 0.8 on November 25, 2020, due to short doubling time, his medical oncologist at [facility] recommended darolutamide but insurance declined rather approved apalutamide, as per patient is in the mail and hopefully get it tomorrow and start as recommended by [facility]. Patient said, he also has follow-up appointment with Dr. Bedoya regarding follow-up sigmoidoscopy. Medications: AmLODIPine Besylate 1 Tablet (of 10 mg) Oral daily, Atorvastatin Calcium 1 Tablet (of 40 mg) Oral daily, Daily Multiple Vitamins 2 Tablet Oral daily, DiazePAM 1 (5 mg) Tablet Oral at bedtime, HydroCHLOROthiazide 1 Tablet (of 50 mg) Oral daily, Imodium A-D 2 (2 mg) Capsule Oral four times a day PRN, Metoprolol Succinate ER 1 Tablet (of 50 mg) Tablet SR 24 HR Oral daily, Ramipril 1 Tablet (of 10 mg) Capsule Oral b.i.d., Senokot S Tablet Oral daily PRN, Tamsulosin HCl 1 Capsule (of 0.4 mg) Oral daily Allergies: No Known Allergies. Review of Systems: Review of Systems is not available for this patient. Vital Signs: Performed on Jun 22, 2021 13:31 Height - 65.00 in Weight - 180.8 lbs (HIGH) BSA - 1.90 sq.m BMI - 30.09 (HIGH) Temperature - 98.6 F Pulse - 86 /min Respiration - 16 /min BP - 128/70 mm(hg) O2 Sat - 98 % Pain - 0 Fatigue - 1 Performance Status: 0 - Fully active, able to carry on all predisease activities without restrictions. (ECOG) Physical Examination: ENMT - No mouth sores, no thrush, no jaundice, Respiratory - Lungs are clear to auscultation, Cardiovascular - Regular rate and rhythm of heart, Abdomen - Soft, bowel sounds present, Extremities - No visible edema. Lab/Imaging: Most recent lab results are not available for this patient. Impression: Metastatic prostate cancer with T11 involvement per bone scan and CT scan of abdomen pelvis done on January 01, 2020. Patient underwent TRUS P/biopsy on December 20, 2019 which confirmed high-volume James score 4+4 and 3+4 [employer] and his PSA was more than 50 Patient was started on bicalutamide by urology on January 22, 2020.1. Patient with adenocarcinoma of the rectum, stage ISIS, with metastatic involvement in nonregional lymph nodes. , Started on Zoladex 10.8 mg every 3 months on February 04, 2020 along with monthly Xgeva And daily vitamin D/calcium supplements Follow-up MRI scan of C-spine and thoracic spine and bone scan done on June 02, 2020 showed no evidence of metastatic disease and resolution of T11 abnormality no appears previously treated with no activity or enhancement seen,, Xgeva was changed to every 3 months on August 18, 2020 along with 3 monthly Zoladex His tumor was found to be MSI stable. 2. He has been undergoing chemotherapy with modified FOLFOX, cycle 1 beginning on 02/21/2017. His other medical illnesses include: 3. Hypertension. 4. Hyperlipidemia. Neoadjuvant chemotherapy with FOLFOX ???6 from 02/21/2017 to 05/02/2017 and On 05/30/2017 he began radiation concurrently with Xeloda for chemosensitization. He completed chemoradiation on 07/10/2017 to a total dose of 5072 cGy. On 09/12/2017 he underwent robotic extended low anterior resection with placement of loop ileostomy. Pathology showed grade 2 adenocarcinoma with invasion through the muscularis propria into perirectal tissue. It measured 2.5 x 2 x 1 cm. The tumor regression score was 2. There was involvement in 4 of 12 regional lymph nodes. Final staging was ypT3, ypN2a. On 10/17/2017 began his first cycle of postoperative adjuvant chemotherapy with modified FOLFOX. He had cold sensitivity lasting 3-4 days. He has otherwise tolerated it well.Completed 6 cycles of adjuvant FOLFOX (total 12 doses, 6 as neoadjuvant and another 6 doses as an adjuvant therapy) on 12/26/2017 Follow-up CT PET scan done on 02/17/2018 showed no evidence of recurrent or residual malignancy. Status post colostomy closure Was done in March 2018 Plan: Discussed with patient regarding his labs white blood count 4.5 hemoglobin 12.4 hematocrit 36.4 platelets 278,000 CMP within normal limit except glucose 140, PSA is 1.53 compared to 1.02 on March 18, 2021 and 1.19 on February 12, 2021 Clinically, patient doing well with no new signs symptoms such of disease progression and PSMA scan done on May 10, 2021 at [facility], showed no evidence of disease but nothing was mentioned about prostate gland, patient still has his prostate gland, earlier surgery was under consideration but as per patient surgeon recommended prostatectomy/cystectomy, for which he is reluctant, also discussed about brachytherapy in [facility], as per patient his radiation oncologist was not very enthusiastic regarding brachytherapy, he recommended proton therapy, as per patient, he was advised to continue with 3 monthly Zoladex and now darolutamide was recommended but due to insurance coverage it was switched to apalutamide, which is about to start while continue with 3 monthly Zoladex. At this point, we will discuss with Dr. Al, radiologist at [facility] regarding prostate gland status on recently done PSMA scan and also discuss with Dr. Colbert regarding significance of increasing PSA, in the setting of normal PSMA scan and intact prostate gland without definite treatment to the prostate. Patient will start taking apalutamide this week and then return to clinic in 1 month with CBC CMP and PSA in the meantime we will continue with 3 monthly Zoladex Signed By: Axel Curry M.D. <<Signature on File>>
== END 2021-06-22 11:08 | disposition home or self-care (01) ==
LOC: ONCMED 11:11
PROVIDERS: PCP Nurse Practitioner Family; Visit Provider Internal Medicine Hematology & Oncology
DX: C61 Malignant neoplasm of prostate (principal); I10 Essential (primary) hypertension; E78.5 Hyperlipidemia, unspecified; Z79.899 Other long term (current) drug therapy; Z92.21 Personal history of antineoplastic chemotherapy
CPT/HCPCS: 36591; 80053; 84153; 85025; 99214

== ENCOUNTER 2021-07-27 11:54 | Outpatient (CLI) | payer MEDICARE, BC, SELFPAY ==
[2021-07-27 12:40] LABS: Basophils % 0.8 %; Eosinophils # 0.1 10^3/uL (0.0-0.8); Eosinophils % 1.8 %; Hematocrit 39.1 % (42.0-52.0); Hemoglobin 13.2 g/dL (11.7-16.6); Lymphocytes % 24.5 %; Mean Corpuscular HGB Conc 33.8 g/dL (30.0-36.0); Mean Corpuscular Hemoglobin 29.7 pg (28.0-34.0); Mean Corpuscular Volume 87.9 fl (80-94); Mean Platelet Volume 9.6 fL (7.4-10.4); Monocytes # 0.5 10^3/uL (0.2-0.9); Monocytes % 11.3 %; Neutrophils # 2.45 10^3/uL (1.8-7.7); Neutrophils % 61.1 %; Nucleated Red Blood Cells % 0 %; Platelet Count 193 10^3/cmm (130-400); Red Blood Count 4.45 10^6/uL (4.1-5.3); Red Cell Distribution Width 13.8 % (12.1-15.1)
[2021-07-27 13:14] LABS: Alanine Aminotransferase 24 U/L (0-41); Albumin Level 4.5 g/dL (3.5-5.2); Alkaline Phosphatase 89 IU/L (40-130); Anion Gap 13.6 (5-19); Aspartate Amino Transferase 23 U/L (0-40); Blood Urea Nitrogen 13 mg/dL (8-23); Carbon Dioxide 27 mmol/L (22-29); Chloride 103 mmol/L (98-107); Globulin 2.2 g/dL (1.3-4.6); Glucose 119 mg/dL (65-115); Osmolality Calculated 291 mOsm/kg (285-295); Potassium 3.6 mmol/L (3.5-5.1); Prostate Specific Antigen 0.052 ng/mL (0-4); Sodium 140 mmol/L (136-145); Total Bilirubin 0.3 mg/dL (0.15-1.2); Total Protein 6.7 g/dL (6.6-8.7)
--- NOTE | 2021-08-02 07:51 | ONC FU_ITS ---
Dr. Curry follow up note Patient: John Brunson Unit #: [id number]: 1945 Dicatated By: Axel Curry M.D.Date of Visit:Jul 27, 2021 Onc Med Follow-up/Prog Note History of Present Illness: Mr Brunson is a 76 year-old man with adenocarcinoma of the rectum, stage ISIS (Tx, Nx, M1a), MSI stable. He had presented with bleeding per rectum for many months. Colonoscopy on 01/10/2017 showed at malignant appearing mass at 6 cm from the anal verge, It was involving three fourth of the circumference. The rest of colon exam showed scattered diverticula in sigmoid colon, but it otherwise appeared normal. Multiple biopsies were obtained with pathology showing moderately differentiated adenocarcinoma, with focal areas which were poorly differentiated. The tumor was found to have intact mismatch repair proteins. CT abdomen/pelvis on 01/10/2017 showed posterior rectal wall thickening measuring 3.8 cm x 2.1 cm, consistent with primary tumor. Additional soft tissue lobulation from the posterior lateral rectum appeared consistent with metastatic deposits or tumor extension from the rectum. An aortocaval lymph node measuring 7 mm in short axis diameter had increased in size since 2008. Subcentimeter periaortic lymph nodes had also increased in size. There was left common iliac chain adenopathy, the largest measures 1.6 cm in diameter. Deeper within the pelvis near bifurcation of left iliac artery there was an additional lymph node measuring 1.2 cm. Numerous small lymph nodes were noted within the perirectal fat and there was some very mild perirectal fat stranding. He was referred to Dr. Lino Bedoya in [place]. He had further evaluation with MRI of the pelvis on 01/18/2017. It showed irregular near-complete circumferential wall thickening roughly centered within the mid rectum consistent with his primary rectal tumor. There was extramural tumor extension abutting the right mesorectal fascia along the right lateral posterior rectal wall. There was bilateral mesorectal lymphadenopathy and left common iliac chain lymphadenopathy. Staging PET/CT on 02/11/2017 showed FDG avid rectal tumor, SUV 15.2, with multiple FDG avid subcentimeter lymph nodes in the surrounding ischial rectal fat. There was also suspected metastatic adenopathy along the pelvic sidewalls and in the retroperitoneum. He initially underwent neoadjuvant chemotherapy with modified FOLFOX, cycle 1 beginning 02/21/2017. He tolerated the first cycle of modified FOLFOX with acceptable toxicity, and he was able to proceed with cycle 2 on 03/06/2017. He had severe cramping in his calves following the second cycle, and he had back spasms which lasted for 3-4 days. He had cold sensitivity which lasted in the range of 11-12 days. With cycle 3, on 03/20/2017, he was given a dose reduction in both the 5-FU infusion and the oxaliplatin. He continued treatment and on 05/02/2017 he began his 6th cycle of chemotherapy. On 05/30/2017 he began radiation concurrently with Xeloda for chemosensitization. He completed radiation on 07/10/2017 to a total dose of 5072 cGy. On 09/12/2017 he underwent robotic extended low anterior resection with placement of loop ileostomy. Pathology showed grade 2 adenocarcinoma with invasion through the muscularis propria into perirectal tissue. It measured 2.5 x 2 x 1 cm. The tumor regression score was 2. There was involvement in 4 of 12 regional lymph nodes. Final staging was ypT3, ypN2a. His other medical illnesses include hypertension and hyperlipidemia. He is a nonsmoker. Mr Brunson continued postoperative chemotherapy on 10/17/2017 with postoperative modified FOLFOX. He has tolerated it well overall. And completed his adjuvant chemotherapy with modified FOLFOX ???6 on 12/26/2017. Status post colostomy closure Done in March 2018 f/u CT scan of abdomen pelvis done on 12/03/2018 showed postsurgical changes at the rectum with posttreatment perirectal soft tissue thickening. No evidence of recurrent mass, obstruction or adenopathy. No metastatic disease to the liver or adrenal glands chest x-ray done on 12/03/2018. Showed no acute pulmonary infiltrate. Chronic elevation right hemidiaphragm CEA was 4.2, As per patient he underwent colonoscopy evaluation May 2019, and Dr. mcconnell , informed him about no abnormality seen and follow-up colonoscopy would be considered in 3 years. Underwent TRUS P/biopsy for abnormal SHILPI and elevated PSA on December 20, 2019 and final pathology report shows large volume [place] score 4+4 and 3+4 DECK MOLDER and bone scan and CT scan of abdomen ordered by urology shows 2 areas of suspicious activity 1 in the spine at T11 and other 1 in the cervical area and CT scan of her abdomen pelvis also confirmed T11 involvement but no pelvic lymphadenopathy, patient was started on bicalutamide on January 22, 2020 And Zoladex every 3 month was added on February 04, 2020 along with monthly Xgeva Patient said he has seen Dr. Mendoza recently and underwent colonoscopy and it was unremarkable and next one is due in 3 years now. Patient underwent sigmoidoscopy on August 13, 2020, as per patient he was told by Dr. Mendoza, there is no abnormality noticed. MRI scan of C-spine done on June 02, 2020 showed no evidence of enhancing bony metastatic disease or epidural disease, asymmetric advanced facet arthropathy right C3-4 and C4-5, MRI scan of thoracic spine shows nonenhancing low signal sclerotic focus in the T11 vertebral body likely benign used to treat. Lower extremity on recent bone scan or no enhancement seen. No evidence of bone mets, Bone scan done on May 05, 2020 shows no evidence of metastatic disease Patient was referred to radiation oncology in [facility] for evaluation for brachytherapy, he was seen there on September 10, 2020 and recommendations were seed implant but without XRT, is a suboptimal to control his unfavorable prostate cancer,, With addition of XRT to implant there is a risk of substantial toxicity, Patient went to [facility] for second opinion and underwent whole-body bone scan and SPECT/CT on November 17, 2020 which shows scattered sclerotic lesion without suspicious activity like more prominent of these is around 1.5 cm sclerotic lesion in T11 which appears to be more dense compared to December 2019 and was not present on older studies from September 2007 CT scan. Similarly 0.6 cm sclerotic lesion in the anterior right iliac is without suspicious activity and stable left common iliac treated metastatic lymph node., CT scan of chest abdomen pelvis done on November 18, 2020 showed stable partially calcified left common iliac lymph node likely treated metastatic lymph node no retroperitoneal mesenteric or inguinal lymphadenopathy no other abnormality seen except prostatomegaly 4.4 x 4.3 cm with diffuse bladder wall thickening likely secondary to previously enlarged prostate and again seen multiple sclerotic osseous lesion with more sclerotic appearance, subcentimeter sclerotic lesions of sternum, patient was evaluated by Dr. Umanzor, who recommended continue with Zoladex and patient received his 3 monthly dose of Zoladex at [facility] on November 17, 2020 and Was recommended to continue with same and if in future his PSA continue to increase present evidence of castrate resistance, darolutamide can be considered in nonmetastatic setting. surgery was not recommended but proton therapy is under consideration, On May 10, 2021, he underwent follow-up PSMA scan at [facility] in [place], which showed no evidence of disease. But his follow-up PSA done on May 10, 2021 was 1.6 compared to 0.8 on November 17, 2020, as per patient Dr. Colbert, his medical oncologist at [facility] recommended darolutamide but his insurance declined coverage but approved apalutamide,Which was started on June 23, 2021 Came for follow-up, denies any specific complaints, no fever chills, no nausea or vomiting, no diarrhea or constipation, no melena or hematochezia, no dysuria or hematuria, occasionally hot flashes otherwise tolerating Zoladex and now apalutamide well, except off and on generalized weakness and fatigue and somewhat more intense hot flashes.Patient said on August 12, 2021 he will have f/u televisit with Dr. Colbert at [facility] Medications: AmLODIPine Besylate 1 Tablet (of 10 mg) Oral daily, Atorvastatin Calcium 1 Tablet (of 40 mg) Oral daily, Daily Multiple Vitamins 2 Tablet Oral daily, DiazePAM 1 (5 mg) Tablet Oral at bedtime, Erleada 4 Tablet (of 60 mg) Oral daily, HydroCHLOROthiazide 1 Tablet (of 50 mg) Oral daily, Imodium A-D 2 (2 mg) Capsule Oral four times a day PRN, Metoprolol Succinate ER 1 Tablet (of 50 mg) Tablet SR 24 HR Oral daily, Ramipril 1 Tablet (of 10 mg) Capsule Oral b.i.d., Senokot S Tablet Oral daily PRN, Tamsulosin HCl 1 Capsule (of 0.4 mg) Oral daily Allergies: No Known Allergies. Review of Systems: Review of Systems is not available for this patient. Vital Signs: Performed on Jul 27, 2021 14:07 Height - 65.00 in Weight - 177.4 lbs (LOW) BSA - 1.88 sq.m BMI - 29.52 Temperature - 97.4 F (LOW) Pulse - 64 /min Respiration - 16 /min BP - 137/66 mm(hg) O2 Sat - 96 % Pain - 0 Fatigue - 0 Performance Status: 0 - Fully active, able to carry on all predisease activities without restrictions. (ECOG) Physical Examination: ENMT - No mouth sores, no thrush, no jaundice, Respiratory - On limited exam Lungs are clear to auscultation, Cardiovascular - Regular rate and rhythm of heart without murmurs, gallops or rubs, Abdomen - Non-tender, non-distended, no masses, ascites or hepatosplenomegaly. Good bowel sounds. No guarding or rebound tenderness. No pulsatile masses, Extremities - No visible deformities, no cyanosis, clubbing or edema. Pulses 4+ and equal bilaterally. Lab/Imaging: Most recent lab results are not available for this patient. Impression: Metastatic prostate cancer with T11 involvement per bone scan and CT scan of abdomen pelvis done on January 01, 2020. Patient underwent TRUS P/biopsy on December 20, 2019 which confirmed high-volume James score 4+4 and 3+4 DECK MOLDER and his PSA was more than 50 Patient was started on bicalutamide by urology on January 22, 2020.1. Patient with adenocarcinoma of the rectum, stage ISIS, with metastatic involvement in nonregional lymph nodes. , Started on Zoladex 10.8 mg every 3 months on February 04, 2020 along with monthly Xgeva And daily vitamin D/calcium supplements Follow-up MRI scan of C-spine and thoracic spine and bone scan done on June 02, 2020 showed no evidence of metastatic disease and resolution of T11 abnormality no appears previously treated with no activity or enhancement seen,, Xgeva was changed to every 3 months on August 18, 2020 along with 3 monthly Zoladex His tumor was found to be MSI stable. 2. He has been undergoing chemotherapy with modified FOLFOX, cycle 1 beginning on 02/21/2017. His other medical illnesses include: 3. Hypertension. 4. Hyperlipidemia. Neoadjuvant chemotherapy with FOLFOX ???6 from 02/21/2017 to 05/02/2017 and On 05/30/2017 he began radiation concurrently with Xeloda for chemosensitization. He completed chemoradiation on 07/10/2017 to a total dose of 5072 cGy. On 09/12/2017 he underwent robotic extended low anterior resection with placement of loop ileostomy. Pathology showed grade 2 adenocarcinoma with invasion through the muscularis propria into perirectal tissue. It measured 2.5 x 2 x 1 cm. The tumor regression score was 2. There was involvement in 4 of 12 regional lymph nodes. Final staging was ypT3, ypN2a. On 10/17/2017 began his first cycle of postoperative adjuvant chemotherapy with modified FOLFOX. He had cold sensitivity lasting 3-4 days. He has otherwise tolerated it well.Completed 6 cycles of adjuvant FOLFOX (total 12 doses, 6 as neoadjuvant and another 6 doses as an adjuvant therapy) on 12/26/2017 Follow-up CT PET scan done on 02/17/2018 showed no evidence of recurrent or residual malignancy. Status post colostomy closure Was done in March 2018 Plan: Discussed with patient regarding his labs white blood count 4 hemoglobin 13.2 g medical 39.1 platelets 193,000 CMP within normal limits PSA is 0.052 compared to 1.53 on June 22, 2021 a day prior to apalutamide. Clinically, patient is doing well with no new signs symptom suggestive of disease progression, tolerating 3 monthly Zoladex now recently added apalutamide, his follow-up PSA level shows significant improvement since apalutamide added to Zoladex. So we will continue with same and he will return to clinic in 1 month with PSA and for his next 3 monthly dose of Zoladex in the meantime he will continue with apalutamide. As far as history of colorectal cancer is concerned, there is no signs symptom suggestive of recurrence of disease, Patient said, he has follow-up televisit with Dr. Colbert, medical oncologist at [facility] on August 12, 2021 Signed By: Axel Curry M.D. <<Signature on File>>
== END 2021-07-27 11:55 | disposition home or self-care (01) ==
PROVIDERS: PCP Nurse Practitioner Family; Visit Provider Internal Medicine Hematology & Oncology
DX: C61 Malignant neoplasm of prostate (principal); C79.51 Secondary malignant neoplasm of bone; C78.5 Secondary malignant neoplasm of large intestine and rectum; C77.8 Secondary and unspecified malignant neoplasm of lymph nodes of multiple regions; I10 Essential (primary) hypertension; E78.5 Hyperlipidemia, unspecified; Z79.818 Long term (current) use of other agents affecting estrogen receptors and estrogen levels; Z79.899 Other long term (current) drug therapy; Z92.21 Personal history of antineoplastic chemotherapy
CPT/HCPCS: 36591; 80053; 84153; 85025; 99215

== ENCOUNTER 2021-09-22 13:00 | Oncology outpatient (recurring) (ONCR) | payer MEDICARE, BC, SELFPAY ==
[2021-08-30 11:16] VITALS: BP 128/76; PULSE 64; RESP 18; TEMP 35.9; O2SAT 98
[2021-08-30 12:03] LABS: Prostate Specific Antigen 0.028 ng/mL (0-4)
[2021-08-30] MEDS: lidocaine 1% INJ 20 mL SUBCUT (12:18)
[2021-08-30] MEDS: goserelin acetate 10.8 mg Implant SUBCUT (12:30)
== END 2021-09-28 23:59 | disposition home or self-care (01) ==
PROVIDERS: Internal Medicine Hematology & Oncology; PCP Nurse Practitioner Family; Referring Provider Surgery; Visit Provider Internal Medicine Medical Oncology
DX: Z45.2 Encounter for adjustment and management of vascular access device (principal)
CPT/HCPCS: 36591; 84153; 96372; 96402; 96523; J9202

== ENCOUNTER 2021-10-25 12:54 | Oncology outpatient (recurring) (ONCR) | payer MEDICARE, BC, SELFPAY ==
[2021-10-25 13:04] VITALS: BP 133/76; PULSE 68; RESP 18; TEMP 36.2; O2SAT 96
== END 2021-10-28 23:59 | disposition home or self-care (01) ==
PROVIDERS: PCP Nurse Practitioner Family; Referring Provider Surgery; Visit Provider Internal Medicine Medical Oncology
DX: Z45.2 Encounter for adjustment and management of vascular access device (principal)
CPT/HCPCS: 96523

== ENCOUNTER 2021-12-02 12:21 | Oncology outpatient (recurring) (ONCR) | payer MEDICARE, BC, SELFPAY ==
[2021-12-02 14:28] LABS: Prostate Specific Antigen < 0.014 ng/mL (0-4)
[2021-12-02] MEDS: leuprolide 22.5 mg Kit IM (15:37)
== END 2021-12-29 23:59 | disposition home or self-care (01) ==
PROVIDERS: Internal Medicine Hematology & Oncology; PCP Nurse Practitioner Family; Referring Provider Surgery; Visit Provider Internal Medicine Medical Oncology
DX: C77.8 Secondary and unspecified malignant neoplasm of lymph nodes of multiple regions; C61 Malignant neoplasm of prostate; D64.9 Anemia, unspecified; Z79.52 Long term (current) use of systemic steroids; Z79.818 Long term (current) use of other agents affecting estrogen receptors and estrogen levels; Z79.899 Other long term (current) drug therapy; Z85.048 Personal history of other malignant neoplasm of rectum, rectosigmoid junction, and anus
CPT/HCPCS: 36591; 84153; 96402; 99214; J9217

== ENCOUNTER 2022-02-01 11:17 | Oncology outpatient (recurring) (ONCR) | payer MEDICARE, BC, SELFPAY | END 2022-02-28 23:59 | disposition home or self-care (01) | LOC: ONCMED 11:17 | PROVIDERS: PCP Nurse Practitioner Family; Visit Provider Internal Medicine Medical Oncology | DX: C61 Malignant neoplasm of prostate (principal); C77.8 Secondary and unspecified malignant neoplasm of lymph nodes of multiple regions; D64.9 Anemia, unspecified; Z79.52 Long term (current) use of systemic steroids; Z79.818 Long term (current) use of other agents affecting estrogen receptors and estrogen levels; Z79.899 Other long term (current) drug therapy; Z85.048 Personal history of other malignant neoplasm of rectum, rectosigmoid junction, and anus | CPT/HCPCS: 96523 ==

== ENCOUNTER 2022-03-04 09:26 | Oncology outpatient (recurring) (ONCR) | payer MEDICARE, BC, SELFPAY ==
[2022-03-04 10:00] LABS: Basophils % 0.7 %; Eosinophils # 0.1 10^3/uL (0.0-0.8); Eosinophils % 2.5 %; Hemoglobin 12.9 g/dL (11.7-16.6); Lymphocytes % 23.8 %; Mean Corpuscular HGB Conc 33.9 g/dL (30.0-36.0); Mean Corpuscular Hemoglobin 29.7 pg (28.0-34.0); Mean Corpuscular Volume 87.6 fl (80-94); Mean Platelet Volume 9.9 fL (7.4-10.4); Monocytes # 0.5 10^3/uL (0.2-0.9); Monocytes % 11.3 %; Neutrophils # 2.49 10^3/uL (1.8-7.7); Neutrophils % 61.2 %; Nucleated Red Blood Cells % 0 %; Platelet Count 189 10^3/cmm (130-400); Red Blood Count 4.34 10^6/uL (4.1-5.3); Red Cell Distribution Width 12.8 % (12.1-15.1); White Blood Count 4.1 10^3/uL (4.0-10.0)
[2022-03-04 10:22] LABS: Alanine Aminotransferase 17 U/L (0-41); Albumin Level 4.3 g/dL (3.5-5.2); Alkaline Phosphatase 118 U/L (40-130); Anion Gap 13.4 (5-19); Aspartate Amino Transferase 20 U/L (0-40); Blood Urea Nitrogen 14 mg/dL (8-23); Calcium 9.9 mg/dL (8.5-10.5); Carbon Dioxide 30 mmol/L (22-29); Chloride 100 mmol/L (98-107); Globulin 2.1 g/dL (1.3-4.6); Glucose 101 mg/dL (65-115); Osmolality Calculated 291 mOsm/kg (285-295); Potassium 3.4 mmol/L (3.5-5.1); Sodium 140 mmol/L (136-145); Testosterone Total 8.4 ng/dL (193-740); Total Bilirubin 0.5 mg/dL (0.15-1.2); Total Protein 6.4 g/dL (6.6-8.7)
[2022-03-04 10:23] LABS: Prostate Specific Antigen < 0.014 ng/mL (0-4)
[2022-03-04] MEDS: leuprolide 22.5 mg Kit IM (11:47)
== END 2022-03-30 23:59 | disposition home or self-care (01) ==
PROVIDERS: Internal Medicine Hematology & Oncology; PCP Nurse Practitioner Family; Visit Provider Internal Medicine Medical Oncology
DX: C61 Malignant neoplasm of prostate (principal); C77.8 Secondary and unspecified malignant neoplasm of lymph nodes of multiple regions; Z79.52 Long term (current) use of systemic steroids; Z79.818 Long term (current) use of other agents affecting estrogen receptors and estrogen levels; Z79.899 Other long term (current) drug therapy; Z85.048 Personal history of other malignant neoplasm of rectum, rectosigmoid junction, and anus; R33.9 Retention of urine, unspecified
CPT/HCPCS: 36591; 80053; 84153; 84403; 85025; 96402; 99214; J9217

== ENCOUNTER 2022-04-01 11:28 | Oncology outpatient (recurring) (ONCR) | payer MEDICARE, BC, SELFPAY | END 2022-04-30 23:59 | disposition home or self-care (01) | LOC: ONCMED 11:29 | PROVIDERS: PCP Nurse Practitioner Family; Visit Provider Internal Medicine Medical Oncology | DX: Z45.2 Encounter for adjustment and management of vascular access device | CPT/HCPCS: 96523 ==

== ENCOUNTER 2022-05-03 12:51 | Oncology outpatient (recurring) (ONCR) | payer MEDICARE, BC, SELFPAY | END 2022-05-31 23:59 | disposition home or self-care (01) | PROVIDERS: PCP Nurse Practitioner Family; Visit Provider Internal Medicine Medical Oncology | DX: C61 Malignant neoplasm of prostate (principal); C77.8 Secondary and unspecified malignant neoplasm of lymph nodes of multiple regions; Z79.52 Long term (current) use of systemic steroids; Z79.818 Long term (current) use of other agents affecting estrogen receptors and estrogen levels; Z79.899 Other long term (current) drug therapy; Z85.048 Personal history of other malignant neoplasm of rectum, rectosigmoid junction, and anus; R33.9 Retention of urine, unspecified; C20 Malignant neoplasm of rectum; D64.9 Anemia, unspecified; Z45.2 Encounter for adjustment and management of vascular access device; Z95.828 Presence of other vascular implants and grafts | CPT/HCPCS: 96523 ==

== ENCOUNTER 2022-05-12 10:46 | Emergency (ER) | payer MEDICARE, BC, SELFPAY ==
[2022-05-12 10:51] VITALS: BP 132/75; PULSE 83; RESP 16; TEMP 36.8; O2SAT 98; BMI 29.0
--- NOTE | 2022-05-12 12:57 | PC.NURSE ---
290ML IN BLADDER PER BLADDER SCANNER
--- NOTE | 2022-05-12 12:57 | W.ED.MALEGU ---
HPI - Male Genitourinary General: Chief complaint: Urogenital-Male Stated complaint: Dr asked to come in, issues urinating, cancer pt. Time Seen by Provider: 05/12/22 12:42 Source: patient Mode of arrival: ambulatory History of Present Illness: 77-year-old male presents emergency room complaining of episode of diarrhea that he had yesterday its has actually been self-limited and resolved but since then he has a difficult time emptying his bladder. He said overnight he had very difficult time getting anything out at all now he has a weak stream this morning but he has not had any significant abdominal pain or discomfort. He denies any fever sweats or chills denies any dysuria urgency or frequency. Onset (ago): day(s) Relieving factors: none Exacerbating factors: none Associated symptoms: Deny dysuria, fevers/chills, hematuria, nausea, rash, swelling, urinary incontinence, urinary retention, mass or vomiting Review of Systems Const: Denies: fever(s), chills, body aches, change in appetite, fatigue or malaise ENMT: Denies: throat pain, ear or mastoid pain, nasal discharge or nasal congestion Card: Denies: chest pain, edema, dyspnea on exertion or orthopnea Resp: Denies: dyspnea, productive cough or non-productive cough GI: Denies: abdominal pain, nausea or vomiting : Denies: dysuria, urinary frequency, urinary urgency, urinary incontinence or hematuria Musc: Reports: back pain Skin/Breast: Denies: rash or pruritus PFSH ED PFSH: Medical History Anxiety Bilateral leg edema Elevated PSA Enlarged prostate History of colon cancer HTN (hypertension), benign Hyperlipidemia Incomplete bladder emptying Lower urinary tract symptoms Malignant neoplasm of rectum Diagnosed 2017. Treated and currently no signs of recurrence. 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 PSA diagnosis was approximately 50. SHILPI hard to interpret due to altered anatomy post colon surgery. Bone scan and abdominal pelvic CT scan suspicious for a couple areas of spinal involvement with metastatic prostate cancer. BICALUTAMIDE initiated 01/22/2020. Follow-up MRI showed no clear evidence of metastatic disease. Surgical History Hx of prostate biopsy S/P closure of ileostomy S/P colon resection S/P ileostomy Family History Mother , 92 CAD (coronary artery disease) Father , 79 Diabetes Cancer lung Social History Smoking and tobacco status: never smoked Alcohol intake: never Marital status: Current occupational status: retired Physical Exam Const: GENERAL APPEARANCE: cooperative and comfortable ORIENTATION/CONSCIOUSNESS: Yes awake, Yes oriented to person, Yes oriented to place and Yes oriented to time HENMT: COMMON NORMALS: normocephalic, atraumatic and hearing grossly normal bilaterally HEAD & SCALP: normocephalic and atraumatic Resp: COMMON NORMALS: normal respiratory effort, No retractions, No use of accessory muscles and clear to auscultation bilaterally AUSCULTATION: clear to auscultation bilaterally Cardio: COMMON NORMALS: regular rate, regular rhythm and No murmurs present (Cardio) RATE: regular rate RHYTHM: regular rhythm GI: COMMON NORMALS: Soft to palpation and No hepatosplenomegaly present AUSCULTATION: Yes normoactive bowel sounds PALPATION: Yes Soft to palpation, No Tenderness to palpation present (GI), No Guarding due to palpation present (GI) and Yes No hepatosplenomegaly present Extremity: COMMON NORMALS: normal to inspection, capillary refill normal, no clubbing, cyanosis or edema, no calf tenderness and no pedal edema Neuro: SENSORIUM/ORIENTATION: Yes oriented to person, Yes oriented to place and Yes oriented to time Skin: COMMON NORMALS: no rashes or lesions noted GENERAL SKIN EXAM: no rashes or lesions noted Course Vital Signs: Vital signs: Vital Signs Temperature 98.2 F 05/12/22 10:51 Pulse Rate 59 L 05/12/22 14:00 Respiratory Rate 16 05/12/22 14:00 Blood Pressure 116/51 05/12/22 14:00 Pulse Oximetry 97 05/12/22 14:00 Oxygen Delivery Me thod 05/12/22 10:51 MDM - Male Medical Decision Making After voiding patient had 200 mL in the bladder. I debated putting in a Abdullahi I do not think at this time he necessarily needs 1 he would prefer to avoid I think we can just observe for this time labs reviewed. We will discharge patient home follow-up with his urologist and primary care as needed return if he has further problems Medical Records I reviewed the patient's medical records. Lab Data I reviewed the patient's lab results. 05/12/22 13:30 05/12/22 13:30 Laboratory Results WBC 4.0 10^3/uL (4.0-10.0) 05/12/22 13: RBC 4.56 10^6/uL (4.1-5.3) 05/12/22 13: Hgb 13.8 g/dL (11.7-16.6) 05/12/22 13: Hct 39.9 % (42.0-52.0) L 05/12/22 13: MCV 87.5 fl (80-94) 05/12/22 13: MCH 30.3 pg (28.0-34.0) 05/12/22 13: MCHC 34.6 g/dL (30.0-36.0) 05/12/22 13: RDW 13.2 % (12.1-15.1) 05/12/22 13: Plt Count 201 10^3/cmm (130-400) 05/12/22 13: MPV 9.7 fL (7.4-10.4) 05/12/22 13: Neut % (Auto) 70.9 % 05/12/22 13: Lymph % (Auto) 18.0 % 05/12/22 13: Nicholas % (Auto) 9.3 % 05/12/22 13: Eos % (Auto) 1.0 % 05/12/22 13: Baso % (Auto) 0.5 % 05/12/22 13: Neut # (Auto) 2.83 10^3/uL (1.8-7.7) 05/12/22 13: Lymph # (Auto) 0.7 10^3/uL (0.8-4.8) L 05/12/22 13: Nicholas # (Auto) 0.4 10^3/uL (0.2-0.9) 05/12/22 13: Eos # (Auto) 0.0 10^3/uL (0.0-0.8) 05/12/22 13:30 Baso # (Auto) 0.0 10^3/uL (0.0-0.1) 05/12/22 13:30 Nucleated RBC % (auto) 0 % 05/12/22 13:30 Nucleated RBCs # 0.0 /100WBC 05/12/22 13:30 Sodium 140 mmol/L (136-145) 05/12/22 13:30 Potassium 3.6 mmol/L (3.5-5.1) 05/12/22 13:30 Chloride 101 mmol/L (98-107) 05/12/22 13:30 Carbon Dioxide 27 mmol/L (22-29) 05/12/22 13:30 Anion Gap 15.6 (5-19) 05/12/22 13:30 BUN 16 mg/dL (8-23) 05/12/22 13:30 Creatinine 0.6 mg/dL (0.7-1.2) L 05/12/22 13:30 GFR Calculation Not Reportable 05/12/22 13:30 Glucose 113 mg/dL (65-115) 05/12/22 13:30 Calculated Osmolality 292 mOsm/kg (285-295) 05/12/22 13:30 Calcium 9.6 mg/dL (8.5-10.5) 05/12/22 13:30 Total Bilirubin 0.4 mg/dL (0.15-1.2) 05/12/22 13:30 AST 21 U/L (0-40) 05/12/22 13:30 ALT 22 U/L (0-41) 05/12/22 13:30 Alkaline Phosphatase 143 U/L (40-130) H 05/12/22 13:30 Total Protein 6.9 g/dL (6.6-8.7) 05/12/22 13:30 Albumin 4.7 g/dL (3.5-5.2) 05/12/22 13:30 Globulin 2.2 g/dL (1.3-4.6) 05/12/22 13:30 Urine Color Yellow (Yellow) 05/12/22 13:08 Urine Appearance Clear (CLEAR) 05/12/22 13:08 Urine pH 5 (5-7) 05/12/22 13:08 Ur Specific Bulan 1.010 (1.005-1.030) 05/12/22 13:08 Urine Protein Neg (Negative) 05/12/22 13:08 Urine Glucose (UA) Norm (Normal) 05/12/22 13:08 Urine Ketones Negative (Negative) 05/12/22 13:08 Urine Blood Neg (Negative) 05/12/22 13:08 Urine Nitrate Negative (Negative) 05/12/22 13:08 Urine Bilirubin Neg (Negative) 05/12/22 13:08 Urine Urobilinogen Neg mg/dL (Negative) 05/12/22 13:08 Ur Leukocyte Esterase Negative (Negative) 05/12/22 13:08 Discharge Plan Discharge Patient Disposition: Home Clinical Impression: Prostate cancer Condition: Stable Prescriptions: No Action amlodipine 10 mg tablet 10 mg PO DAILY hydrochlorothiazide 50 mg tablet 50 mg PO DAILY metoprolol succinate 50 mg tablet extended release 24 hr 50 mg PO DAILY ramipril 10 mg capsule 10 mg PO BID atorvastatin 40 mg tablet 40 mg PO BEDTIME diazepam 5 mg tablet 5 mg PO BEDTIME multivitamin Tablet 1 tab PO DAILY docusate sodium [Stool Softener] 100 mg capsule 100 mg PO DAILY PRN (Reason: Constipation) Erleada 60 mg tablet 240 mg PO DAILY tamsulosin 0.4 mg capsule 0.4 mg PO BID Imodium A-D 1 mg/7.5 mL Liquid 2 mg PO Q4H PRN (Reason: Diarrhea) Rx Instructions: administer after each loose stool until symptoms controlled; do not exceed 8 mg per 24 hrs Discharge Orders: Discharge ED (Routine); Ordered 05/12/22 Ordered By: Wallace Laureano Referrals: Lia Garcia FNP [Primary Care Provider] - Discharge Diet: Usual diet Discharge Activity: Increase activity as tolerated Patient Instructions: Opioid Safety, Pain Management Activity Restrictions/Additional Instructions: Your evaluated today for potential urinary retention you had a little over 200 mL of urine in your bladder after voiding. Since you are currently able to void I do not recommend catheter at this time. If you have worsening symptoms return and we will reevaluate Coding Level of Care Code ED Certified Performance Technologist for Carlos Burrell
[2022-05-12 13:00] VITALS: BP 138/64; PULSE 68; RESP 16; O2SAT 97
[2022-05-12 13:15] LABS: Add Urine Microscopic? NO; Charge for UA Resulting for Rev
[2022-05-12 13:16] LABS: Urine Appearance Clear (CLEAR); Urine Color Yellow (Yellow)
[2022-05-12 13:17] LABS: Bilirubin Urine Neg (Negative); Blood Urine Neg (Negative); Glucose Urine UA Norm (Normal); Ketones Urine Negative (Negative); Leukocyte Esterase Urine Negative (Negative); Nitrate Urine Negative (Negative); Protein Urine Neg (Negative); Urobilinogen Urine Neg (Negative); pH Urine 5 (5-7)
[2022-05-12 13:39] LABS: Basophils % 0.5 %; Hematocrit 39.9 % (42.0-52.0); Hemoglobin 13.8 g/dL (11.7-16.6); Lymphocytes # 0.7 10^3/uL (0.8-4.8); Mean Corpuscular HGB Conc 34.6 g/dL (30.0-36.0); Mean Corpuscular Hemoglobin 30.3 pg (28.0-34.0); Mean Corpuscular Volume 87.5 fl (80-94); Mean Platelet Volume 9.7 fL (7.4-10.4); Monocytes # 0.4 10^3/uL (0.2-0.9); Monocytes % 9.3 %; Neutrophils # 2.83 10^3/uL (1.8-7.7); Neutrophils % 70.9 %; Nucleated Red Blood Cells % 0 %; Platelet Count 201 10^3/cmm (130-400); Red Blood Count 4.56 10^6/uL (4.1-5.3); Red Cell Distribution Width 13.2 % (12.1-15.1)
[2022-05-12 13:58] LABS: Alanine Aminotransferase 22 U/L (0-41); Albumin Level 4.7 g/dL (3.5-5.2); Alkaline Phosphatase 143 U/L (40-130); Anion Gap 15.6 (5-19); Aspartate Amino Transferase 21 U/L (0-40); Blood Urea Nitrogen 16 mg/dL (8-23); Calcium 9.6 mg/dL (8.5-10.5); Carbon Dioxide 27 mmol/L (22-29); Chloride 101 mmol/L (98-107); Globulin 2.2 g/dL (1.3-4.6); Glucose 113 mg/dL (65-115); Osmolality Calculated 292 mOsm/kg (285-295); Potassium 3.6 mmol/L (3.5-5.1); Sodium 140 mmol/L (136-145); Total Bilirubin 0.4 mg/dL (0.15-1.2); Total Protein 6.9 g/dL (6.6-8.7)
[2022-05-12 14:00] VITALS: BP 116/51; PULSE 59; RESP 16; O2SAT 97
== END 2022-05-12 14:40 | disposition home or self-care (01) ==
PROVIDERS: Emergency Provider Family Medicine; PCP Nurse Practitioner Family
DX: C61 Malignant neoplasm of prostate (principal); Z85.038 Personal history of other malignant neoplasm of large intestine; I10 Essential (primary) hypertension; E78.5 Hyperlipidemia, unspecified; Z85.048 Personal history of other malignant neoplasm of rectum, rectosigmoid junction, and anus
CPT/HCPCS: 36415; 80053; 81003; 85025; 99283

== ENCOUNTER 2022-06-10 08:20 | Oncology outpatient (recurring) (ONCR) | payer MEDICARE, BC, SELFPAY ==
[2022-06-10 08:46] LABS: Basophils % 0.8 %; Eosinophils # 0.1 10^3/uL (0.0-0.8); Eosinophils % 2.1 %; Hematocrit 39.3 % (42.0-52.0); Hemoglobin 13.4 g/dL (11.7-16.6); Lymphocytes % 25.2 %; Mean Corpuscular HGB Conc 34.1 g/dL (30.0-36.0); Mean Corpuscular Hemoglobin 29.9 pg (28.0-34.0); Mean Corpuscular Volume 87.7 fl (80-94); Mean Platelet Volume 9.9 fL (7.4-10.4); Monocytes # 0.4 10^3/uL (0.2-0.9); Monocytes % 9.9 %; Neutrophils # 2.39 10^3/uL (1.8-7.7); Nucleated Red Blood Cells % 0 %; Platelet Count 204 10^3/cmm (130-400); Red Blood Count 4.48 10^6/uL (4.1-5.3); Red Cell Distribution Width 13.2 % (12.1-15.1); White Blood Count 3.9 10^3/uL (4.0-10.0)
[2022-06-10 09:13] LABS: Carcinoembryonic Antigen 2.3 ng/mL (0.0-4.7)
[2022-06-10 09:23] LABS: Prostate Specific Antigen < 0.014 ng/mL (0-4)
[2022-06-10 09:24] LABS: Alanine Aminotransferase 18 U/L (0-41); Albumin Level 4.4 g/dL (3.5-5.2); Alkaline Phosphatase 115 U/L (40-130); Anion Gap 15.7 (5-19); Aspartate Amino Transferase 20 U/L (0-40); Blood Urea Nitrogen 13 mg/dL (8-23); Calcium 9.6 mg/dL (8.5-10.5); Carbon Dioxide 28 mmol/L (22-29); Chloride 99 mmol/L (98-107); Glucose 106 mg/dL (65-115); Osmolality Calculated 289 mOsm/kg (285-295); Potassium 3.7 mmol/L (3.5-5.1); Sodium 139 mmol/L (136-145); Total Bilirubin 0.3 mg/dL (0.15-1.2); Total Protein 6.4 g/dL (6.6-8.7)
[2022-06-10] MEDS: leuprolide 22.5 mg Kit IM (10:12)
== END 2022-06-28 23:59 | disposition home or self-care (01) ==
PROVIDERS: PCP Nurse Practitioner Family; Visit Provider Internal Medicine Hematology & Oncology
DX: C61 Malignant neoplasm of prostate (principal); Z79.818 Long term (current) use of other agents affecting estrogen receptors and estrogen levels; Z79.899 Other long term (current) drug therapy; Z85.048 Personal history of other malignant neoplasm of rectum, rectosigmoid junction, and anus; R33.9 Retention of urine, unspecified
CPT/HCPCS: 36591; 80053; 82378; 84153; 85025; 96402; 99214; J9217

== ENCOUNTER → 2022-06-22 14:35 | Outpatient (BNVA) | payer MEDICARE, BC, SELFPAY | PROVIDERS: PCP Nurse Practitioner Family; Visit Provider Urology | DX: R33.9 Retention of urine, unspecified (principal); R39.9 Unspecified symptoms and signs involving the genitourinary system; C61 Malignant neoplasm of prostate | CPT/HCPCS: 51741; 51798; 99213 ==

== ENCOUNTER 2022-07-13 13:13 | Oncology outpatient (recurring) (ONCR) | payer MEDICARE, BC, SELFPAY ==
[2022-07-13 13:35] VITALS: BP 133/77; PULSE 62; RESP 16; TEMP 36.5; O2SAT 98
== END 2022-07-29 23:59 | disposition home or self-care (01) ==
LOC: ONCMED 13:13
PROVIDERS: PCP Nurse Practitioner Family; Visit Provider Internal Medicine Hematology & Oncology
DX: C61 Malignant neoplasm of prostate (principal); Z79.818 Long term (current) use of other agents affecting estrogen receptors and estrogen levels; Z79.899 Other long term (current) drug therapy; Z85.048 Personal history of other malignant neoplasm of rectum, rectosigmoid junction, and anus; R33.9 Retention of urine, unspecified
CPT/HCPCS: 96523

== ENCOUNTER 2022-08-10 14:24 | Oncology outpatient (recurring) (ONCR) | payer MEDICARE, BC, SELFPAY ==
[2022-08-10 14:49] VITALS: BP 126/75; PULSE 80; RESP 16; RESP 18; TEMP 36.1; O2SAT 96
== END 2022-08-28 23:59 | disposition home or self-care (01) ==
LOC: ONCMED 14:25
PROVIDERS: PCP Nurse Practitioner Family; Visit Provider Internal Medicine Hematology & Oncology
DX: Z45.2 Encounter for adjustment and management of vascular access device (principal)
CPT/HCPCS: 96523

== ENCOUNTER 2022-09-19 11:24 | Oncology outpatient (recurring) (ONCR) | payer MEDICARE, BC, SELFPAY ==
[2022-09-19 11:30] VITALS: BMI 29.5
[2022-09-19 11:38] VITALS: BP 109/66; PULSE 57; RESP 16; TEMP 36.6; O2SAT 96
[2022-09-19 11:46] LABS: Basophils % 0.5 %; Eosinophils # 0.1 10^3/uL (0.0-0.8); Eosinophils % 1.7 %; Hemoglobin 12.5 g/dL (11.7-16.6); Lymphocytes % 23.2 %; Mean Corpuscular HGB Conc 33.8 g/dL (30.0-36.0); Mean Corpuscular Hemoglobin 29.6 pg (28.0-34.0); Mean Corpuscular Volume 87.5 fl (80-94); Mean Platelet Volume 9.8 fL (7.4-10.4); Monocytes # 0.4 10^3/uL (0.2-0.9); Monocytes % 8.9 %; Neutrophils # 2.71 10^3/uL (1.8-7.7); Neutrophils % 65.5 %; Nucleated Red Blood Cells % 0 %; Platelet Count 198 10^3/cmm (130-400); Red Blood Count 4.23 10^6/uL (4.1-5.3); Red Cell Distribution Width 13.1 % (12.1-15.1); White Blood Count 4.1 10^3/uL (4.0-10.0)
[2022-09-19 12:17] LABS: Alanine Aminotransferase 18 U/L (0-41); Alkaline Phosphatase 125 U/L (40-130); Anion Gap 14.4 (5-19); Aspartate Amino Transferase 19 U/L (0-40); Blood Urea Nitrogen 11 mg/dL (8-23); Calcium 9.5 mg/dL (8.5-10.5); Carbon Dioxide 28 mmol/L (22-29); Chloride 104 mmol/L (98-107); Globulin 2.1 g/dL (1.3-4.6); Glucose 99 mg/dL (65-115); Osmolality Calculated 295 mOsm/kg (285-295); Potassium 3.4 mmol/L (3.5-5.1); Sodium 143 mmol/L (136-145); Total Bilirubin 0.3 mg/dL (0.15-1.2); Total Protein 6.1 g/dL (6.6-8.7)
[2022-09-19 12:18] LABS: Prostate Specific Antigen < 0.014 ng/mL (0-4)
[2022-09-19] MEDS: leuprolide 22.5 mg Kit IM (14:28)
[2022-09-19 14:33] VITALS: BP 128/71; PULSE 59; RESP 16; TEMP 36.4; O2SAT 97
== END 2022-09-28 23:59 | disposition home or self-care (01) ==
PROVIDERS: PCP Nurse Practitioner Family; Visit Provider Internal Medicine Hematology & Oncology
DX: C61 Malignant neoplasm of prostate (principal); Z79.818 Long term (current) use of other agents affecting estrogen receptors and estrogen levels; Z79.899 Other long term (current) drug therapy; C79.51 Secondary malignant neoplasm of bone; Z85.048 Personal history of other malignant neoplasm of rectum, rectosigmoid junction, and anus
CPT/HCPCS: 80053; 84153; 84403; 85025; 96402; 99214; J1642; J9217

== ENCOUNTER 2022-10-24 13:04 | Oncology outpatient (recurring) (ONCR) | payer MEDICARE, BC, SELFPAY ==
[2022-10-24 13:30] VITALS: BP 128/74; PULSE 67; RESP 16; TEMP 36.5; O2SAT 97
== END 2022-10-28 23:59 | disposition home or self-care (01) ==
LOC: ONCMED 13:04
PROVIDERS: PCP Nurse Practitioner Family; Visit Provider Internal Medicine Hematology & Oncology
DX: Z45.2 Encounter for adjustment and management of vascular access device (principal)
CPT/HCPCS: 96523; J1642

== ENCOUNTER 2022-11-28 12:49 | Oncology outpatient (recurring) (ONCR) | payer MEDICARE, BC, SELFPAY ==
[2022-11-28 12:55] VITALS: BP 129/73; PULSE 69; RESP 16; TEMP 36.4; O2SAT 97
[2022-11-28 12:56] VITALS: BMI 29.9
== END 2022-11-28 23:59 | disposition home or self-care (01) ==
PROVIDERS: PCP Nurse Practitioner Family; Visit Provider Internal Medicine Hematology & Oncology
DX: Z45.2 Encounter for adjustment and management of vascular access device (principal)
CPT/HCPCS: 96523; J1642

== ENCOUNTER 2022-12-26 11:05 | Oncology outpatient (recurring) (ONCR) | payer MEDICARE, BC, SELFPAY ==
[2022-12-26 11:08] VITALS: BP 125/72; PULSE 60; RESP 18; TEMP 36.3; O2SAT 95; BMI 29.4
[2022-12-26 11:22] LABS: Basophils % 0.5 %; Eosinophils # 0.1 10^3/uL (0.0-0.8); Eosinophils % 1.9 %; Hematocrit 37.8 % (37-53); Lymphocytes % 27.4 %; Mean Corpuscular HGB Conc 34.4 g/dL (30-55); Mean Corpuscular Hemoglobin 29.7 pg (27-33); Mean Corpuscular Volume 86.5 fl (82-101); Mean Platelet Volume 9.6 fL (7.4-10.4); Monocytes # 0.3 10^3/uL (0.2-0.9); Monocytes % 9.3 %; Neutrophils # 2.21 10^3/uL (1.8-7.7); Neutrophils % 60.6 %; Nucleated Red Blood Cells % 0 %; Platelet Count 194 10^3/cmm (157-399); Red Blood Count 4.37 10^6/uL (3.85-5.65); Red Cell Distribution Width 13.2 % (12.1-15.1); White Blood Count 3.65 10^3/uL (3.29-11.43)
[2022-12-26 11:51] LABS: Carcinoembryonic Antigen 1.8 ng/mL (0.0-4.7); Testosterone Total 10.9 ng/dL (193-740)
[2022-12-26 11:57] LABS: Prostate Specific Antigen < 0.014 ng/mL (0-4)
[2022-12-26 12:03] LABS: Alanine Aminotransferase 18 U/L (0-41); Albumin Level 4.3 g/dL (3.5-5.2); Alkaline Phosphatase 116 U/L (40-130); Anion Gap 12.4 (5-19); Aspartate Amino Transferase 20 U/L (0-40); Blood Urea Nitrogen 13 mg/dL (8-23); Calcium 9.3 mg/dL (8.5-10.5); Carbon Dioxide 29 mmol/L (22-29); Chloride 102 mmol/L (98-107); Glucose 132 mg/dL (65-115); Osmolality Calculated 292 mOsm/kg (285-295); Potassium 3.4 mmol/L (3.5-5.1); Sodium 140 mmol/L (136-145); Total Bilirubin 0.3 mg/dL (0.15-1.2); Total Protein 6.3 g/dL (6.6-8.7)
[2022-12-26] MEDS: leuprolide 22.5 mg Kit IM (13:37)
== END 2022-12-29 23:59 | disposition home or self-care (01) ==
PROVIDERS: Nurse Practitioner; PCP Nurse Practitioner Family; Visit Provider Internal Medicine Hematology & Oncology
DX: C61 Malignant neoplasm of prostate (principal); Z79.818 Long term (current) use of other agents affecting estrogen receptors and estrogen levels; Z79.899 Other long term (current) drug therapy; Z85.048 Personal history of other malignant neoplasm of rectum, rectosigmoid junction, and anus; R33.9 Retention of urine, unspecified; Z51.11 Encounter for antineoplastic chemotherapy
CPT/HCPCS: 36591; 80053; 82378; 84153; 84403; 85025; 96402; 99214; J1642; J9217

== ENCOUNTER 2023-01-23 14:16 | Oncology outpatient (recurring) (ONCR) | payer MEDICARE, BC, SELFPAY ==
[2023-01-23 14:24] VITALS: BP 121/69; PULSE 71; RESP 16; TEMP 36.4; O2SAT 97
== END 2023-01-28 23:59 | disposition home or self-care (01) ==
PROVIDERS: PCP Nurse Practitioner Family; Visit Provider Internal Medicine Medical Oncology
DX: Z45.2 Encounter for adjustment and management of vascular access device
CPT/HCPCS: 96523; J1642

== ENCOUNTER 2023-02-27 14:23 | Oncology outpatient (recurring) (ONCR) | payer MEDICARE, BC, SELFPAY ==
[2023-02-27 14:54] VITALS: BP 121/62; PULSE 69; RESP 18; TEMP 36.3; O2SAT 97
== END 2023-02-28 23:59 | disposition home or self-care (01) ==
LOC: ONCMED 14:24
PROVIDERS: PCP Nurse Practitioner Family; Visit Provider Internal Medicine Medical Oncology
DX: Z45.2 Encounter for adjustment and management of vascular access device
CPT/HCPCS: 96523; J1642

== ENCOUNTER 2023-03-20 12:04 | Oncology outpatient (recurring) (ONCR) | payer MEDICARE, BC, SELFPAY ==
[2023-03-20 12:15] VITALS: BP 115/65; PULSE 65; RESP 16; TEMP 36.2; O2SAT 97
[2023-03-20 12:54] LABS: Basophils % 0.5 %; Eosinophils # 0.1 10^3/uL (0.0-0.8); Eosinophils % 1.3 %; Hematocrit 38.1 % (37-53); Lymphocytes % 27.4 %; Mean Corpuscular HGB Conc 34.4 g/dL (30-55); Mean Corpuscular Hemoglobin 30.1 pg (27-33); Mean Corpuscular Volume 87.6 fl (82-101); Mean Platelet Volume 9.6 fL (7.4-10.4); Monocytes # 0.3 10^3/uL (0.2-0.9); Monocytes % 7.8 %; Neutrophils # 2.33 10^3/uL (1.8-7.7); Neutrophils % 62.7 %; Nucleated Red Blood Cells % 0 %; Platelet Count 211 10^3/cmm (157-399); Red Blood Count 4.35 10^6/uL (3.85-5.65); Red Cell Distribution Width 13.4 % (12.1-15.1); White Blood Count 3.72 10^3/uL (3.29-11.43)
[2023-03-20 13:19] LABS: Alanine Aminotransferase 22 U/L (0-41); Albumin Level 4.4 g/dL (3.5-5.2); Alkaline Phosphatase 120 U/L (40-130); Anion Gap 14.1 (5-19); Aspartate Amino Transferase 26 U/L (0-40); Blood Urea Nitrogen 14 mg/dL (8-23); Calcium 9.5 mg/dL (8.5-10.5); Carbon Dioxide 27 mmol/L (22-29); Chloride 105 mmol/L (98-107); Globulin 2.1 g/dL (1.3-4.6); Glucose 112 mg/dL (65-115); Osmolality Calculated 295 mOsm/kg (285-295); Potassium 4.1 mmol/L (3.5-5.1); Prostate Specific Antigen 0.016 ng/mL (0-4); Sodium 142 mmol/L (136-145); Testosterone Total 4.4 ng/dL (193-740); Total Bilirubin 0.4 mg/dL (0.15-1.2); Total Protein 6.5 g/dL (6.6-8.7)
[2023-03-20] MEDS: leuprolide 22.5 mg Kit IM (14:29)
[2023-03-20 14:30] VITALS: BP 147/67; PULSE 74; RESP 18; TEMP 36.6; O2SAT 98
--- NOTE | 2023-03-20 14:45 | PC.NURSE ---
Patient is wanting to have the port a cath access re-evaluated for patency next visit due to having another appointment.marjorie
== END 2023-03-30 23:59 | disposition home or self-care (01) ==
PROVIDERS: Nurse Practitioner Family; PCP Nurse Practitioner Family; Visit Provider Internal Medicine Medical Oncology
DX: C61 Malignant neoplasm of prostate (principal); Z79.818 Long term (current) use of other agents affecting estrogen receptors and estrogen levels; Z79.899 Other long term (current) drug therapy; Z85.048 Personal history of other malignant neoplasm of rectum, rectosigmoid junction, and anus; R33.9 Retention of urine, unspecified; Z51.11 Encounter for antineoplastic chemotherapy
CPT/HCPCS: 36415; 80053; 84153; 84403; 85025; 96402; 99214; J1642; J9217

== ENCOUNTER 2023-04-18 14:38 | Oncology outpatient (recurring) (ONCR) | payer MEDICARE, BC, SELFPAY ==
[2023-04-18 14:47] VITALS: BP 138/69; PULSE 70; RESP 16; TEMP 36.2; O2SAT 98
[2023-04-18] MEDS: alteplase 1 mg/mL SDV 2 mL 2 MG INTRACATH ×2 (15:10→16:11)
== END 2023-04-30 23:59 | disposition home or self-care (01) ==
LOC: ONCMED 14:38
PROVIDERS: PCP Nurse Practitioner Family; Visit Provider Internal Medicine Medical Oncology
DX: Z45.2 Encounter for adjustment and management of vascular access device
CPT/HCPCS: 96374; 96376; J1642; J2997

== ENCOUNTER 2023-05-18 13:24 | Oncology outpatient (recurring) (ONCR) | payer MEDICARE, BC, SELFPAY | END 2023-05-31 23:59 | disposition home or self-care (01) | LOC: ONCMED 13:24 | PROVIDERS: PCP Nurse Practitioner Family; Visit Provider Internal Medicine Medical Oncology | DX: Z45.2 Encounter for adjustment and management of vascular access device | CPT/HCPCS: 96523; J1642 ==

== ENCOUNTER 2023-06-12 14:32 | Oncology outpatient (recurring) (ONCR) | payer MEDICARE, BC, SELFPAY ==
[2023-06-12 15:10] VITALS: BP 149/53; PULSE 63; RESP 16; TEMP 36.3; O2SAT 96
[2023-06-12] MEDS: leuprolide 22.5 mg Kit IM (15:16)
== END 2023-06-29 23:59 | disposition home or self-care (01) ==
PROVIDERS: PCP Nurse Practitioner Family; Visit Provider Internal Medicine Medical Oncology
DX: Z95.828 Presence of other vascular implants and grafts (principal); C61 Malignant neoplasm of prostate; Z79.818 Long term (current) use of other agents affecting estrogen receptors and estrogen levels; Z53.9 Procedure and treatment not carried out, unspecified reason
CPT/HCPCS: 96402; 96523; 99214; J1642; J9217

== ENCOUNTER 2023-06-19 14:08 | Outpatient (CLI) | payer MEDICARE, BC, SELFPAY ==
--- NOTE | 2023-06-19 14:30 | XR_ITS ---
WS: [id number] SCREENING DEXA SCAN [facility] CLINICAL INFORMATION: androgen deprivation therapy COMPARISON: 2020 FINDINGS: The L1-L4 bone mineral density measures 1.862 g/cm2. This corresponds to a T score score of 5.4 and Z score of 5.9. Left femoral neck bone mineral density measures 0.984 g/cm2. This corresponds to a T score of -0.8 an d Z score of 0.1. Right femoral neck bone mineral density measures 0.945 g/cm2. This corresponds to a T score -1.1of an d Z score of -0.2. Mean femoral neck bone mineral density measures 0.965 g/cm2. This corresponds to a T score of -0.9 an d Z score of 0.0. IMPRESSION: Normal bone mineralization lumbar spine and femoral necks. Femoral neck bone mineral density approach ing osteopenia. Patient's FRAX calculated 10 year probability for major osteoporotic fracture is 8.4% and osteoporoti c hip fracture is 2.3%. Bone mineral density in lumbar spine decreased -5.3%. Bone mineral density in the femoral necks decreased -8.8%
== END 2023-06-19 14:09 | disposition home or self-care (01) ==
LOC: RAD 14:10
PROVIDERS: PCP Nurse Practitioner Family; Visit Provider Internal Medicine Medical Oncology
DX: Z13.820 Encounter for screening for osteoporosis (principal); Z79.818 Long term (current) use of other agents affecting estrogen receptors and estrogen levels
CPT/HCPCS: 77080

== ENCOUNTER 2023-07-10 14:23 | Oncology outpatient (recurring) (ONCR) | payer MEDICARE, BC, SELFPAY | END 2023-07-30 23:59 | disposition home or self-care (01) | LOC: ONCMED 14:23 | PROVIDERS: PCP Nurse Practitioner Family; Visit Provider Internal Medicine Medical Oncology | DX: Z45.2 Encounter for adjustment and management of vascular access device | CPT/HCPCS: 96523; J1642 ==

== ENCOUNTER 2023-08-08 14:05 | Oncology outpatient (recurring) (ONCR) | payer MEDICARE, BC, SELFPAY | END 2023-08-29 23:59 | disposition home or self-care (01) | PROVIDERS: PCP Nurse Practitioner Family; Visit Provider Internal Medicine Medical Oncology | DX: Z45.2 Encounter for adjustment and management of vascular access device (principal) | CPT/HCPCS: 96523 ==

== ENCOUNTER 2023-09-13 11:16 | Oncology outpatient (recurring) (ONCR) | payer MEDICARE, BC, SELFPAY ==
[2023-09-13 11:54] LABS: Basophils % 0.5 %; Eosinophils # 0.1 10^3/uL (0.0-0.8); Eosinophils % 1.6 %; Hematocrit 39.2 % (37-53); Lymphocytes % 22.8 %; Mean Corpuscular HGB Conc 35.2 g/dL (30-55); Mean Corpuscular Hemoglobin 30.5 pg (27-33); Mean Corpuscular Volume 86.5 fl (82-101); Mean Platelet Volume 9.8 fL (7.4-10.4); Monocytes # 0.4 10^3/uL (0.2-0.9); Neutrophils # 2.91 10^3/uL (1.8-7.7); Neutrophils % 66.9 %; Nucleated Red Blood Cells % 0 %; Platelet Count 220 10^3/cmm (157-399); Red Blood Count 4.53 10^6/uL (3.85-5.65); Red Cell Distribution Width 12.9 % (12.1-15.1); White Blood Count 4.35 10^3/uL (3.29-11.43)
[2023-09-13 12:22] LABS: Carcinoembryonic Antigen 1.8 ng/mL (0.0-4.7); Prostate Specific Antigen 0.036 ng/mL (0-4); Testosterone Total 17.2 ng/dL (193-740)
[2023-09-13 12:33] LABS: Alanine Aminotransferase 12 U/L (0-41); Albumin Level 4.1 g/dL (3.5-5.2); Alkaline Phosphatase 113 U/L (40-130); Anion Gap 14.6 (5-19); Aspartate Amino Transferase 17 U/L (0-40); Blood Urea Nitrogen 10 mg/dL (8-23); Calcium 9.6 mg/dL (8.5-10.5); Carbon Dioxide 27 mmol/L (22-29); Chloride 102 mmol/L (98-107); Globulin 2.5 g/dL (1.3-4.6); Glucose 114 mg/dL (65-115); Osmolality Calculated 290 mOsm/kg (285-295); Potassium 3.6 mmol/L (3.5-5.1); Sodium 140 mmol/L (136-145); Total Bilirubin 0.5 mg/dL (0.15-1.2); Total Protein 6.6 g/dL (6.6-8.7)
[2023-09-13] MEDS: leuprolide 22.5 mg Kit IM (14:13)
[2023-09-13 16:49] LABS: 25 Hydroxy Vitamin D 42 ng/mL (30-100)
== END 2023-09-29 23:59 | disposition home or self-care (01) ==
PROVIDERS: Nurse Practitioner Family; PCP Nurse Practitioner Family; Visit Provider Internal Medicine Medical Oncology
DX: C20 Malignant neoplasm of rectum; C61 Malignant neoplasm of prostate; M85.80 Other specified disorders of bone density and structure, unspecified site; R33.9 Retention of urine, unspecified; Z51.12 Encounter for antineoplastic immunotherapy; Z79.818 Long term (current) use of other agents affecting estrogen receptors and estrogen levels
CPT/HCPCS: 36591; 80053; 82306; 82378; 84153; 84403; 85025; 96402; 99214; J9217

== ENCOUNTER 2023-10-02 13:53 | Oncology outpatient (recurring) (ONCR) | payer MEDICARE, BC, SELFPAY | END 2023-10-29 23:59 | disposition home or self-care (01) | PROVIDERS: PCP Nurse Practitioner Family; Visit Provider Internal Medicine Medical Oncology | DX: Z45.2 Encounter for adjustment and management of vascular access device | CPT/HCPCS: 96523 ==

== ENCOUNTER 2023-10-30 14:26 | Oncology outpatient (recurring) (ONCR) | payer MEDICARE, BC, SELFPAY | END 2023-11-29 23:59 | disposition home or self-care (01) | PROVIDERS: PCP Nurse Practitioner Family; Visit Provider Internal Medicine Medical Oncology | DX: Z45.2 Encounter for adjustment and management of vascular access device (principal); Z53.9 Procedure and treatment not carried out, unspecified reason ==

== ENCOUNTER 2023-12-25 14:00 | Oncology outpatient (recurring) (ONCR) | payer MEDICARE, BC, SELFPAY ==
[2023-12-06 10:05] LABS: Basophils % 0.7 %; Lymphocytes # 0.9 10^3/uL (0.8-4.8); Lymphocytes % 21.1 %; Mean Corpuscular HGB Conc 34.6 g/dL (30-55); Mean Corpuscular Hemoglobin 30.2 pg (27-33); Mean Corpuscular Volume 87.3 fl (82-101); Mean Platelet Volume 9.9 fL (7.4-10.4); Monocytes # 0.4 10^3/uL (0.2-0.9); Monocytes % 9.5 %; Neutrophils # 2.78 10^3/uL (1.8-7.7); Neutrophils % 67.5 %; Nucleated Red Blood Cells % 0 %; Platelet Count 211 10^3/cmm (157-399); Red Blood Count 4.24 10^6/uL (3.85-5.65); Red Cell Distribution Width 13.2 % (12.1-15.1); White Blood Count 4.12 10^3/uL (3.29-11.43)
[2023-12-06 10:35] LABS: Alanine Aminotransferase 20 U/L (0-41); Albumin Level 4.3 g/dL (3.5-5.2); Alkaline Phosphatase 113 U/L (40-130); Aspartate Amino Transferase 22 U/L (0-40); Blood Urea Nitrogen 10 mg/dL (8-23); Calcium 9.4 mg/dL (8.5-10.5); Carbon Dioxide 26 mmol/L (22-29); Chloride 103 mmol/L (98-107); Creatinine Clr Calc Pharmacy 74.5156; Globulin 2.5 g/dL (1.3-4.6); Glucose 165 mg/dL (65-115); Osmolality Calculated 297 mOsm/kg (285-295); Prostate Specific Antigen 0.045 ng/mL (0-4); Sodium 142 mmol/L (136-145); Testosterone Total 6.2 ng/dL (193-740); Total Bilirubin 0.4 mg/dL (0.15-1.2); Total Protein 6.8 g/dL (6.6-8.7)
[2023-12-06] MEDS: leuprolide 22.5 mg Kit IM (11:01)
== END 2023-12-30 23:59 | disposition home or self-care (01) ==
PROVIDERS: Nurse Practitioner Family; PCP Nurse Practitioner Family; Visit Provider Internal Medicine Medical Oncology
DX: Z53.9 Procedure and treatment not carried out, unspecified reason; Z45.2 Encounter for adjustment and management of vascular access device
CPT/HCPCS: 36591; 80053; 84153; 84403; 85025; 96402; 96523; 99214; J9217

== ENCOUNTER 2024-01-22 14:00 | Oncology outpatient (recurring) (ONCR) | payer MEDICARE, BC, SELFPAY | END 2024-01-29 23:59 | disposition home or self-care (01) | LOC: ONCMED 14:00 | PROVIDERS: PCP Nurse Practitioner Family; Visit Provider Internal Medicine Medical Oncology | DX: Z45.2 Encounter for adjustment and management of vascular access device | CPT/HCPCS: 96523 ==

== ENCOUNTER 2024-02-28 14:00 | Oncology outpatient (recurring) (ONCR) | payer MEDICARE, BC, SELFPAY ==
[2024-02-28 14:49] LABS: Basophils % 0.4 %; Eosinophils % 0.5 %; Hematocrit 37.7 % (37-53); Lymphocytes # 1.2 10^3/uL (0.8-4.8); Lymphocytes % 21.3 %; Mean Corpuscular HGB Conc 34.2 g/dL (30-55); Mean Corpuscular Hemoglobin 29.5 pg (27-33); Mean Corpuscular Volume 86.3 fl (82-101); Mean Platelet Volume 9.7 fL (7.4-10.4); Monocytes # 0.4 10^3/uL (0.2-0.9); Monocytes % 7.6 %; Neutrophils # 3.89 10^3/uL (1.8-7.7); Nucleated Red Blood Cells % 0 %; Platelet Count 251 10^3/cmm (157-399); Red Blood Count 4.37 10^6/uL (3.85-5.65); Red Cell Distribution Width 12.7 % (12.1-15.1); White Blood Count 5.55 10^3/uL (3.29-11.43)
[2024-02-28 15:19] LABS: Alanine Aminotransferase 15 U/L (0-41); Albumin Level 4.4 g/dL (3.5-5.2); Alkaline Phosphatase 113 U/L (40-130); Anion Gap 15.4 (5-19); Aspartate Amino Transferase 22 U/L (0-40); Blood Urea Nitrogen 17 mg/dL (8-23); Calcium 8.7 mg/dL (8.5-10.5); Carbon Dioxide 26 mmol/L (22-29); Chloride 104 mmol/L (98-107); Globulin 2.3 g/dL (1.3-4.6); Glucose 142 mg/dL (65-115); Osmolality Calculated 296 mOsm/kg (285-295); Potassium 4.4 mmol/L (3.5-5.1); Prostate Specific Antigen 0.055 ng/mL (0-4); Sodium 141 mmol/L (136-145); Testosterone Total 18.7 ng/dL (193-740); Total Bilirubin 0.3 mg/dL (0.15-1.2); Total Protein 6.7 g/dL (6.6-8.7)
[2024-02-28] MEDS: leuprolide 22.5 mg Kit IM (16:10)
== END 2024-02-29 23:59 | disposition home or self-care (01) ==
PROVIDERS: PCP Nurse Practitioner Family; Visit Provider Internal Medicine Medical Oncology
DX: Z51.11 Encounter for antineoplastic chemotherapy; C61 Malignant neoplasm of prostate; C20 Malignant neoplasm of rectum; R33.9 Retention of urine, unspecified; Z79.899 Other long term (current) drug therapy; Z53.9 Procedure and treatment not carried out, unspecified reason
CPT/HCPCS: 36591; 80053; 84153; 84403; 85025; 96402; 99214; J9217

== ENCOUNTER 2024-04-09 15:06 | Oncology outpatient (recurring) (ONCR) | payer MEDICARE, BC, SELFPAY | END 2024-04-30 23:59 | disposition home or self-care (01) | LOC: ONCMED 15:06 | PROVIDERS: PCP Nurse Practitioner Family; Visit Provider Internal Medicine Medical Oncology | DX: Z45.2 Encounter for adjustment and management of vascular access device | CPT/HCPCS: 96523 ==

== ENCOUNTER 2024-05-02 13:55 | Outpatient (CLI) | payer MEDICARE, BC, SELFPAY ==
--- NOTE | 2024-05-02 14:04 | XRR_ITS ---
PROCEDURE INFORMATION: Exam: XR Right Foot Exam date and time: 05/02/2024 2:22 PM Age: 79 years old Clinical indication: Foot; Right; Prior surgery; Surgery date: 1-6 months; Surgery type: Mole removed from second toe 1 month ago; Patient HX: Mole removed from 2nd toe 1 mo ago, dropped a cup on 2nd toe 6 mo ago, pain since; Additional info: Right foot joint pain, 2nd toe TECHNIQUE: Imaging protocol: Radiologic exam of the right foot. Views: 1 or 2 views. COMPARISON: [place] bone scan whole body* [id number] 05/05/2020 10:55 AM FINDINGS: Bones/joints: Moderate degenerative change of the 1st MTP joint. Mild degenerative changes of the interphalangeal joints. No acute fracture or dislocation. Tiny plantar calcaneal enthesophyte. Soft tissues: No significant soft tissue pathology. XR/XR foot RT 2V [id number] IMPRESSION: No acute bony pathology.
== END 2024-05-02 13:56 | disposition home or self-care (01) ==
LOC: RAD 14:02
PROVIDERS: PCP Nurse Practitioner Family; Visit Provider Nurse Practitioner Family
DX: M19.071 Primary osteoarthritis, right ankle and foot (principal)
CPT/HCPCS: 73620

== ENCOUNTER 2024-05-22 13:13 | Oncology outpatient (recurring) (ONCR) | payer MEDICARE, BC, SELFPAY ==
[2024-05-22 13:40] LABS: Basophils % 0.4 %; Eosinophils % 0.9 %; Hematocrit 37.2 % (37-53); Lymphocytes % 22.9 %; Mean Corpuscular HGB Conc 34.4 g/dL (30-55); Mean Corpuscular Volume 87.1 fl (82-101); Mean Platelet Volume 9.8 fL (7.4-10.4); Monocytes # 0.4 10^3/uL (0.2-0.9); Monocytes % 7.8 %; Neutrophils # 3.02 10^3/uL (1.8-7.7); Neutrophils % 67.8 %; Nucleated Red Blood Cells % 0 %; Platelet Count 218 10^3/cmm (157-399); Red Blood Count 4.27 10^6/uL (3.85-5.65); Red Cell Distribution Width 12.7 % (12.1-15.1); White Blood Count 4.46 10^3/uL (3.29-11.43)
[2024-05-22 14:07] LABS: Alanine Aminotransferase 19 U/L (0-41); Albumin Level 4.2 g/dL (3.5-5.2); Alkaline Phosphatase 123 U/L (40-130); Anion Gap 15.7 (5-19); Aspartate Amino Transferase 21 U/L (0-40); Blood Urea Nitrogen 13 mg/dL (8-23); Calcium 9.4 mg/dL (8.5-10.5); Carbon Dioxide 26 mmol/L (22-29); Chloride 100 mmol/L (98-107); Creatinine Clr Calc Pharmacy 74.4923; Globulin 2.1 g/dL (1.3-4.6); Glucose 106 mg/dL (65-115); Osmolality Calculated 287 mOsm/kg (285-295); Potassium 3.7 mmol/L (3.5-5.1); Prostate Specific Antigen 0.072 ng/mL (0-4); Sodium 138 mmol/L (136-145); Testosterone Total 10.8 ng/dL (193-740); Total Bilirubin 0.2 mg/dL (0.15-1.2); Total Protein 6.3 g/dL (6.6-8.7)
[2024-05-22] MEDS: leuprolide 22.5 mg Kit IM (15:54)
== END 2024-05-31 23:59 | disposition home or self-care (01) ==
PROVIDERS: Nurse Practitioner Family; PCP Nurse Practitioner Family; Visit Provider Internal Medicine
DX: Z51.11 Encounter for antineoplastic chemotherapy (principal); C61 Malignant neoplasm of prostate; C79.51 Secondary malignant neoplasm of bone; Z79.899 Other long term (current) drug therapy
CPT/HCPCS: 36591; 80053; 84153; 84403; 85025; 96402; 99213; J9217

== ENCOUNTER 2024-06-28 09:48 | Oncology outpatient (recurring) (ONCR) | payer MEDICARE, BC, SELFPAY | END 2024-06-28 23:59 | disposition home or self-care (01) | LOC: ONCMED 09:49 | PROVIDERS: PCP Nurse Practitioner Family; Visit Provider Internal Medicine | DX: Z51.11 Encounter for antineoplastic chemotherapy (principal); C61 Malignant neoplasm of prostate; C79.51 Secondary malignant neoplasm of bone; Z79.899 Other long term (current) drug therapy | CPT/HCPCS: 96523 ==

== ENCOUNTER 2024-08-14 12:23 | Oncology outpatient (recurring) (ONCR) | payer MEDICARE, BC, SELFPAY ==
[2024-08-14] MEDS: alteplase 1 mg/mL SDV 2 mL 2 MG INTRACATH (13:11)
[2024-08-14 13:34] LABS: Basophils % 0.2 %; Eosinophils # 0.1 10^3/uL (0.0-0.8); Eosinophils % 0.9 %; Hematocrit 39.6 % (37-53); Lymphocytes # 0.9 10^3/uL (0.8-4.8); Lymphocytes % 15.9 %; Mean Corpuscular HGB Conc 35.1 g/dL (30-55); Mean Corpuscular Hemoglobin 30.8 pg (27-33); Mean Corpuscular Volume 87.8 fl (82-101); Mean Platelet Volume 9.6 fL (7.4-10.4); Monocytes # 0.4 10^3/uL (0.2-0.9); Monocytes % 6.5 %; Neutrophils # 4.31 10^3/uL (1.8-7.7); Neutrophils % 76.1 %; Nucleated Red Blood Cells % 0 %; Platelet Count 241 10^3/cmm (157-399); Red Blood Count 4.51 10^6/uL (3.85-5.65); White Blood Count 5.66 10^3/uL (3.29-11.43)
[2024-08-14 14:07] LABS: Alanine Aminotransferase 20 U/L (0-41); Albumin Level 4.4 g/dL (3.5-5.2); Alkaline Phosphatase 111 U/L (40-130); Anion Gap 17.3 (5-19); Aspartate Amino Transferase 22 U/L (0-40); Blood Urea Nitrogen 11 mg/dL (8-23); Calcium 9.3 mg/dL (8.5-10.5); Carbon Dioxide 24 mmol/L (22-29); Chloride 98 mmol/L (98-107); Creatinine Clr Calc Pharmacy 73.6986; Globulin 2.5 g/dL (1.3-4.6); Glucose 123 mg/dL (65-115); Lactate Dehydrogenase 166 U/L (135-225); Osmolality Calculated 283 mOsm/kg (285-295); Potassium 3.3 mmol/L (3.5-5.1); Prostate Specific Antigen 0.133 ng/mL (0-4); Sodium 136 mmol/L (136-145); Testosterone Total 25.6 ng/dL (193-740); Total Bilirubin 0.4 mg/dL (0.15-1.2); Total Protein 6.9 g/dL (6.6-8.7)
[2024-08-14] MEDS: leuprolide 22.5 mg Kit IM (14:14)
== END 2024-08-28 23:59 | disposition home or self-care (01) ==
PROVIDERS: PCP Nurse Practitioner Family; Visit Provider Internal Medicine
DX: Z51.11 Encounter for antineoplastic chemotherapy (principal); C61 Malignant neoplasm of prostate; C79.51 Secondary malignant neoplasm of bone; Z85.048 Personal history of other malignant neoplasm of rectum, rectosigmoid junction, and anus; R33.9 Retention of urine, unspecified; Z79.899 Other long term (current) drug therapy
CPT/HCPCS: 36593; 80053; 83615; 84153; 84403; 85025; 96402; 99214; J2997; J9217

== ENCOUNTER 2024-09-11 11:06 | Oncology outpatient (recurring) (ONCR) | payer MEDICARE, BC, SELFPAY | END 2024-09-28 23:59 | disposition home or self-care (01) | PROVIDERS: PCP Nurse Practitioner Family; Visit Provider Internal Medicine Medical Oncology | DX: Z45.2 Encounter for adjustment and management of vascular access device (principal) | CPT/HCPCS: 96523 ==

== ENCOUNTER 2024-10-09 11:03 | Oncology outpatient (recurring) (ONCR) | payer MEDICARE, BC, SELFPAY ==
[2024-10-09] MEDS: alteplase 1 mg/mL SDV 2 mL 2 MG INTRACATH (11:47)
== END 2024-10-28 23:59 | disposition home or self-care (01) ==
PROVIDERS: PCP Nurse Practitioner Family; Visit Provider Internal Medicine Medical Oncology
DX: T82.9XXA Unspecified complication of cardiac and vascular prosthetic device, implant and graft, initial encounter (principal); X58.XXXA Exposure to other specified factors, initial encounter
CPT/HCPCS: J2997

== ENCOUNTER 2024-11-13 07:18 | Oncology outpatient (recurring) (ONCR) | payer MEDICARE, BC, SELFPAY ==
[2024-11-13] MEDS: alteplase 1 mg/mL SDV 2 mL 2 MG INTRACATH (07:59)
[2024-11-13 08:04] LABS: Hematocrit 39.6 % (37-53); Hemoglobin 13.70 g/dL (11.27-16.99); Mean Corpuscular HGB Conc 34.6 g/dL (30-55); Mean Corpuscular Hemoglobin 30.5 pg (27-33); Mean Corpuscular Volume 88.2 fl (82-101); Nucleated Red Blood Cells % 0 %; Platelet Count 217 10^3/cmm (157-399); Red Blood Count 4.49 10^6/uL (3.85-5.65); White Blood Count 4.23 10^3/uL (3.29-11.43)
[2024-11-13 08:35] LABS: Alanine Aminotransferase 15 U/L (0-41); Albumin Level 4.2 g/dL (3.5-5.2); Alkaline Phosphatase 115 U/L (40-130); Anion Gap 18.3 (5-19); Aspartate Amino Transferase 22 U/L (0-40); Blood Urea Nitrogen 11 mg/dL (8-23); Calcium 9.5 mg/dL (8.5-10.5); Carbon Dioxide 25 mmol/L (22-29); Chloride 100 mmol/L (98-107); Creatinine Clr Calc Pharmacy 73.3014; Globulin 2.7 g/dL (1.3-4.6); Glucose 108 mg/dL (65-115); Osmolality Calculated 290 mOsm/kg (285-295); Potassium 3.3 mmol/L (3.5-5.1); Prostate Specific Antigen 0.101 ng/mL (0-4); Sodium 140 mmol/L (136-145); Total Protein 6.9 g/dL (6.6-8.7)
[2024-11-13] MEDS: leuprolide 22.5 mg Kit IM (09:08)
== END 2024-11-28 23:59 | disposition home or self-care (01) ==
PROVIDERS: Nurse Practitioner Family; PCP Nurse Practitioner Family; Visit Provider Internal Medicine
DX: Z51.11 Encounter for antineoplastic chemotherapy (principal); C61 Malignant neoplasm of prostate; C79.51 Secondary malignant neoplasm of bone; Z79.818 Long term (current) use of other agents affecting estrogen receptors and estrogen levels; Z79.899 Other long term (current) drug therapy; Z95.828 Presence of other vascular implants and grafts; Z85.048 Personal history of other malignant neoplasm of rectum, rectosigmoid junction, and anus; Z92.3 Personal history of irradiation
CPT/HCPCS: 36415; 36593; 80053; 84153; 84403; 85025; 96402; 99213; J2997; J9217

== ENCOUNTER 2024-12-11 12:35 | Oncology outpatient (recurring) (ONCR) | payer MEDICARE, BC, SELFPAY | END 2024-12-29 23:59 | disposition home or self-care (01) | PROVIDERS: PCP Nurse Practitioner Family; Visit Provider Internal Medicine | DX: Z45.2 Encounter for adjustment and management of vascular access device (principal); Z95.828 Presence of other vascular implants and grafts | CPT/HCPCS: 96523 ==

== ENCOUNTER 2025-01-08 12:50 | Oncology outpatient (recurring) (ONCR) | payer MEDICARE, BC, SELFPAY | END 2025-01-28 23:59 | disposition home or self-care (01) | LOC: ONCMED 12:50 | PROVIDERS: PCP Nurse Practitioner Family; Visit Provider Internal Medicine | DX: Z45.2 Encounter for adjustment and management of vascular access device (principal); Z95.828 Presence of other vascular implants and grafts | CPT/HCPCS: 96523 ==

== ENCOUNTER 2025-02-05 13:34 | Oncology outpatient (recurring) (ONCR) | payer MEDICARE, BC, SELFPAY ==
[2025-02-05] MEDS: alteplase 1 mg/mL SDV 2 mL 2 MG INTRACATH (13:57)
[2025-02-05 13:58] LABS: Hematocrit 36.8 % (37-53); Hemoglobin 13.10 g/dL (11.27-16.99); Mean Corpuscular HGB Conc 35.6 g/dL (30-55); Mean Corpuscular Hemoglobin 31.2 pg (27-33); Mean Corpuscular Volume 87.6 fl (82-101); Nucleated Red Blood Cells % 0 %; Platelet Count 241 10^3/cmm (157-399); Red Blood Count 4.20 10^6/uL (3.85-5.65); White Blood Count 5.07 10^3/uL (3.29-11.43)
[2025-02-05 14:33] LABS: Alanine Aminotransferase 17 U/L (0-41); Albumin Level 4.4 g/dL (3.5-5.2); Alkaline Phosphatase 135 U/L (40-130); Anion Gap 16.7 (5-19); Aspartate Amino Transferase 24 U/L (0-40); Blood Urea Nitrogen 12 mg/dL (8-23); Calcium 9.2 mg/dL (8.5-10.5); Carbon Dioxide 25 mmol/L (22-29); Chloride 102 mmol/L (98-107); Creatinine Clr Calc Pharmacy 74.3558; Globulin 2.4 g/dL (1.3-4.6); Glucose 115 mg/dL (65-115); Osmolality Calculated 291 mOsm/kg (285-295); Potassium 3.7 mmol/L (3.5-5.1); Prostate Specific Antigen 0.138 ng/mL (0-4); Sodium 140 mmol/L (136-145); Total Protein 6.8 g/dL (6.6-8.7)
[2025-02-05] MEDS: leuprolide 22.5 mg Kit IM (14:51)
== END 2025-02-28 23:59 | disposition home or self-care (01) ==
PROVIDERS: PCP Nurse Practitioner Family; Visit Provider Internal Medicine
DX: Z51.11 Encounter for antineoplastic chemotherapy (principal); C61 Malignant neoplasm of prostate; C79.51 Secondary malignant neoplasm of bone; R33.9 Retention of urine, unspecified; Z79.899 Other long term (current) drug therapy; Z95.828 Presence of other vascular implants and grafts; Z85.048 Personal history of other malignant neoplasm of rectum, rectosigmoid junction, and anus; Z92.3 Personal history of irradiation
CPT/HCPCS: 36415; 36593; 80053; 83615; 84153; 84403; 85025; 96402; 99213; J2997; J9217

== ENCOUNTER → 2025-02-19 11:05 | Outpatient (BNVA) | payer MEDICARE, BC, SELFPAY | PROVIDERS: PCP Nurse Practitioner Family; Visit Provider Surgery | DX: Z95.828 Presence of other vascular implants and grafts (principal) | CPT/HCPCS: 99203 ==

== ENCOUNTER 2025-03-11 06:16 | Day surgery (SDC) | payer MEDICARE, BC, SELFPAY ==
[2025-03-11] VITALS (7 sets, daily range): BP systolic 99–149; BP diastolic 44–68; PULSE 58–73; RESP 18–20; TEMP 36.4–37.1; O2SAT 96–100; BMI 28.4
--- NOTE | 2025-03-11 06:41 | P.HPUD_ITS ---
Surgery/Procedure H&P Update DATE OF PROCEDURE: March 11, 2025 DATE H&P PERFORMED: 02/19/25 H&P UPDATE INFORMATION: I have reviewed H&P completed within last 30 days, I have examined patient prior to procedure, No changes to prior documentation, H&P is in [facility] EMR on date indicated and Risks and benefits of the procedure reviewed PLANNED PROCEDURE: Operation Date: 03/11/25 07:50 Proposed Procedures p Portacath Removal 29280 [id number](Not Applicable) - Mario Alberto Cox MD
--- NOTE | 2025-03-11 06:50 | ANES.PREANE2 ---
Pre-Anesthetic Assessment Height/Weight: Height 1.65 m Weight 77.564 kg Temp Pulse Resp BP Pulse Ox O2 Del Method 97.6 F 73 18 149/68 96 Room Air 03/11/25 06:34 03/11/25 06:34 03/11/25 06:34 03/11/25 06:34 03/11/25 06:34 03/11/25 06:34 Operation Date: 03/11/25 07:50 Proposed Procedures p Portacath Removal [id number](Not Applicable) - Mario Alberto Cox MD Familial anesthetic complications: NOne Was Beta Prabhakar taken within 24 hours: Yes Was Clonidine taken within 24 hours: N/A Last intake: Intake Last Liquid Date 03/10/25 Last Liquid Time 18:00 Last Solid Date 03/10/25 Last Solid Time 18:00 Social No alcohol and No tobacco Exam alert, oriented x 3, clear to auscultation bilaterally and regular rate & rhythm CV/HEM Hypertension GI hx colon cancer Anesthetic Plan ASA status: 3 Anesthesia: MAC Risk of > 500 ml blood loss (7ml/kg in children): No Medications/Allergies Home Medications ?Medication ?Instructions ?Recorded ?Confirmed ?Last Taken ?Type amlodipine 10 mg tablet 10 mg PO DAILY 11/18/19 03/11/25 03/11/25 05:30 History atorvastatin 40 mg tablet 40 mg PO BEDTIME 11/18/19 03/10/25 03/10/25 History diazepam 5 mg tablet 5 mg PO BEDTIME 11/18/19 03/10/25 03/10/25 History hydrochlorothiazide 50 mg tablet 50 mg PO DAILY 11/18/19 03/10/25 03/10/25 History metoprolol succinate 50 mg 50 mg PO DAILY 11/18/19 03/11/25 03/11/25 05:30 History tablet,extended release 24 hr ramipril 10 mg capsule 10 mg PO BID 11/18/19 03/10/25 03/10/25 History docusate sodium 100 mg capsule 100 mg PO DAILY PRN Constipation 03/04/22 03/10/25 03/10/25 History (Stool Softener) multivitamin 1 tab PO DAILY 03/04/22 03/10/25 03/10/25 History loperamide 1 mg/7.5 mL oral liquid 2 mg PO Q4H PRN Diarrhea 05/12/22 03/10/25 03/10/25 History (Imodium A-D) acetaminophen 500 mg tablet 1,000 mg PO ONCE PRN pain' 03/20/23 03/10/25 Unknown History tamsulosin 0.4 mg capsule 0.4 mg PO BID #60 caps 05/09/23 03/10/25 03/10/25 Rx apalutamide 60 mg tablet (Erleada) 240 mg (4 x 60 mg) PO DAILY #120 05/22/24 03/10/25 03/10/25 Rx tabs Allergies Allergy/AdvReac Type Severity Reaction Status Date / Time No Known Allergies Allergy Verified 03/11/25 06:29 Current Medications Generic Name Dose Route Start Last Admin Trade Name Freq PRN Reason Stop Dose Admin Sodium Chloride 1,000 mls @ 30 mls/hr 03/11/25 06:30 03/11/25 06:39 Sodium Chloride 0.9% IV 03/12/25 06:29 30 mls/hr .Q24H FARHAT Administration PFSH Anesthesia Medical History Androgen deprivation therapy Prostate cancer Large volume James 4+4, 4+3, 3+4 [employer] bilaterally diagnosed 12/20/2019. PSA diagnosis was approximately 50. SHILPI hard to interpret due to altered anatomy post colon surgery. Bone scan and abdominal pelvic CT scan suspicious for a couple areas of spinal involvement with metastatic prostate cancer. BICALUTAMIDE initiated 01/22/2020. Follow-up MRI showed no clear evidence of metastatic disease. Malignant neoplasm of rectum Diagnosed 2016. Treated and currently no signs of recurrence. Incomplete bladder emptying Elevated PSA HTN (hypertension), benign Anxiety Bilateral leg edema Lower urinary tract symptoms Hyperlipidemia Enlarged prostate Surgical History Hx of prostate biopsy S/P colon resection S/P closure of ileostomy S/P ileostomy Family History Mother , 92 CAD (coronary artery disease) Father , 79 Diabetes Cancer lung Social History Smoking and tobacco/nicotine status: never used tobacco/nicotine Alcohol intake: never Substance/Drug Use: never Marital status: Current occupational status: retired
[2025-03-11] MEDS: ceFAZolin 2,000 mg SDV 2000 MG IVP (07:10)
[2025-03-11] MEDS: lidocaine-epi 1% PF 1:200,000 30 mL SDV INJECTION (07:20)
[2025-03-11] MEDS: BUPivacaine 0.25% INJ 10 mL INJECTION (07:20)
--- NOTE | 2025-03-11 07:40 | P.OP_ITS ---
Operative Report Date of procedure: March 11, 2025 Pre-op diagnosis: Port-A-Cath in place Post-op diagnosis: Same Post-op findings: There was a keloid scar overlying the area of the Port-A-Cath measuring 2 x 1 cm. Procedure done: Excision of Port-A-Cath, excision of a keloid scar of the left upper chest Specimens removed/disposition: Keloid scar of the left upper chest Surgeon: Mario Alberto Cox MD Justice Court Judge: SARBJIT OR STaff Estimated blood loss: 5 Complications: none Brief History: 79-year-old male who presented to my office for excision of Port-A-Cath. After discussion of the risk and benefits we decided to proceed. Procedure: Patient was brought into the OR, he was placed in a supine position. Monitored anesthesia care was initiated. The left upper chest was prepped and draped in usual sterile fashion. Timeout was conducted. A keloid scar was noted on top of the Port-A-Cath and measuring about 1 x 2 cm. Local anesthesia was applied surrounding this area. I then made an elliptical incision encompassing the keloid scar, the total incision line was about 4 cm, the incision was deepened to the subcutaneous tissue, the skin with a keloid scar was excised from the tissue using electrocautery. I then opened the capsule of the port and the port was immediately visualized, the port was delivered through the wound, 2 Prolene sutures were cut and the port was freed from adjacent tissue. While holding pressure in the left jugular vein the port was completely removed. The tract was then obliterated with a #3-0 Vicryl [id number] suture. The capsule of the pleura was excised using electrocautery. Hemostasis was achieved. The wound was irrigated. Wound was closed in layers using #3 Vicryl for subcutaneous tissue #4 Monocryl for the skin and Dermabond was applied. At the end of the procedure all counts were correct the patient tolerated well the procedure was transferred to the PACU in stable condition
--- NOTE | 2025-03-11 08:35 | ANE.PACU2 ---
Inpatient post-anesthesia follow up: Airway intact: Yes Vital signs: Temperature 97.6 F Pulse Rate 58 Respiratory Rate 18 Blood Pressure 121/61 Pulse Oximetry 100 Oxygen Delivery Me thod Room Air Oxygen Flow Rate Fraction of Inspir ed Oxygen Hydration adequate: Yes Nausea and vomiting: No Pain level: 1 Mental status: Baseline
== END 2025-03-11 08:39 | disposition home or self-care (01) ==
PROVIDERS: PCP Nurse Practitioner Family; Visit Provider Surgery
PROC: (CPT 36590; principal; 2025-03-11 07:50)
PROC: (CPT 36590; 2025-03-11 07:50)
DX: Z85.048 Personal history of other malignant neoplasm of rectum, rectosigmoid junction, and anus (principal); Z85.46 Personal history of malignant neoplasm of prostate; I10 Essential (primary) hypertension; E78.5 Hyperlipidemia, unspecified; F41.9 Anxiety disorder, unspecified; Z80.1 Family history of malignant neoplasm of trachea, bronchus and lung
CPT/HCPCS: 36590; 88304; J0690; J2704; J3490; J7030; J9999

== ENCOUNTER → 2025-03-25 13:33 | Outpatient (BNVA) | payer MEDICARE, BC, SELFPAY | PROVIDERS: PCP Nurse Practitioner Family; Visit Provider Surgery | DX: Z95.828 Presence of other vascular implants and grafts (principal) | CPT/HCPCS: 99213 ==

== ENCOUNTER 2025-04-30 12:57 | Oncology outpatient (recurring) (ONCR) | payer MEDICARE, BC, SELFPAY ==
[2025-04-30 13:12] LABS: Hematocrit 40.1 % (37-53); Hemoglobin 13.60 g/dL (11.27-16.99); Mean Corpuscular HGB Conc 33.9 g/dL (30-55); Mean Corpuscular Hemoglobin 29.6 pg (27-33); Mean Corpuscular Volume 87.2 fl (82-101); Nucleated Red Blood Cells % 0 %; Platelet Count 254 10^3/cmm (157-399); Red Blood Count 4.60 10^6/uL (3.85-5.65); White Blood Count 4.95 10^3/uL (3.29-11.43)
[2025-04-30 13:47] LABS: Alanine Aminotransferase 21 U/L (0-41); Albumin Level 4.6 g/dL (3.5-5.2); Alkaline Phosphatase 146 U/L (40-130); Anion Gap 15.9 (5-19); Aspartate Amino Transferase 23 U/L (0-40); Blood Urea Nitrogen 13 mg/dL (8-23); Calcium 9.9 mg/dL (8.5-10.5); Carbon Dioxide 28 mmol/L (22-29); Chloride 101 mmol/L (98-107); Globulin 2.3 g/dL (1.3-4.6); Glucose 113 mg/dL (65-115); Osmolality Calculated 293 mOsm/kg (285-295); Potassium 3.9 mmol/L (3.5-5.1); Prostate Specific Antigen 0.169 ng/mL (0-4); Sodium 141 mmol/L (136-145); Total Protein 6.9 g/dL (6.6-8.7)
[2025-04-30] MEDS: leuprolide 22.5 mg Kit IM (14:15)
== END 2025-04-30 23:59 | disposition home or self-care (01) ==
PROVIDERS: PCP Nurse Practitioner Family; Visit Provider Internal Medicine
DX: Z51.11 Encounter for antineoplastic chemotherapy (principal); C61 Malignant neoplasm of prostate; C79.51 Secondary malignant neoplasm of bone; Z79.899 Other long term (current) drug therapy; Z95.828 Presence of other vascular implants and grafts; Z85.048 Personal history of other malignant neoplasm of rectum, rectosigmoid junction, and anus; Z92.3 Personal history of irradiation; R97.21 Rising PSA following treatment for malignant neoplasm of prostate
CPT/HCPCS: 80053; 84153; 84403; 85025; 96402; 99213; J9217